=== PATIENT | male | born 1950 | race Caucasian/White ===

== ENCOUNTER → 2018-03-25 | Outpatient (CLI) | payer MEDICARE ==
[~2018-03-25] MED LIST: ALDACTONE25 MG PO; BISOPROLOL FUMA10 MG PO; D3-5050000 UNIT PO; DIOVAN160 MG PO; LEVOTHYROXINE0.2 M1 PO; TRICOR145 MG PO
== END ==
LOC: M.MRI 06:50
DX: M17.11 Unilateral primary osteoarthritis, right knee (principal); M25.461 Effusion, right knee; M71.21 Synovial cyst of popliteal space [Baker], right knee; G89.29 Other chronic pain

== ENCOUNTER → 2018-05-30 | Outpatient (CLI) | payer MEDICARE | LOC: M.RAD 12:20 | DX: M47.816 Spondylosis without myelopathy or radiculopathy, lumbar region (principal); M25.78 Osteophyte, vertebrae; I70.0 Atherosclerosis of aorta; I10 Essential (primary) hypertension; E03.9 Hypothyroidism, unspecified ==

== ENCOUNTER → 2018-08-27 | Outpatient (CLI) | payer MEDICARE | LOC: M.ULTRA 07:44 | DX: I10 Essential (primary) hypertension (principal); E03.9 Hypothyroidism, unspecified ==

== ENCOUNTER → 2018-11-08 | Outpatient (CLI) | payer MEDICARE ==
[2018-11-08 11:57] LABS: CREATININE 1.3 mg/dL (0.6-1.3)
== END ==
LOC: M.LAB 11:23 → M.CT 13:00
PROVIDERS: Internal Medicine
DX: K76.89 Other specified diseases of liver (principal); N28.9 Disorder of kidney and ureter, unspecified; R59.1 Generalized enlarged lymph nodes

== ENCOUNTER → 2019-01-02 | Day surgery (SDC) | payer MEDICARE ==
[~2019-01-02] MED LIST changes: +CATAPRES-TTS 20.2 MG TRANSDERM; +COZAAR100 MG PO; +NORVASC10 MG PO
--- NOTE | ~2019-01-02 | OP ---
[facility] [address] [place] [address] OPERATIVE REPORT Name: CORAZONANTOINETTE Karol Room: [facility]#: [id number] Admission: 01/02/19 Attend Phys: Gonsalo Owen Discharge: Date of : 48 Report #: [id number] THIS REPORT FOR: //name// CC: Noe Owen DATE OF SERVICE: 01/02/2019 PREOPERATIVE DIAGNOSIS: Right inguinal lymphadenopathy. POSTOPERATIVE DIAGNOSIS: Right inguinal lymphadenopathy. OPERATION: Excisional biopsy of right inguinal lymph node, deep. SURGEON: Gonsalo Owen MD ANESTHESIA: General. ESTIMATED BLOOD LOSS: Minimal. SPECIMEN: Right inguinal lymph node. DESCRIPTION OF PROCEDURE: After informed consent was obtained, the patient was brought to the operating room and placed supine. SCDs were placed and working. Preoperative antibiotics were administered. General anesthesia was induced. The right groin was prepped and draped in the usual sterile fashion. A 3 cm incision was made over the right groin. Cautery dissection was made down through the subcutaneous tissue into the deep tissue. Roni fascia was incised. Cautery dissection was made down to a palpable lymph node. This measured approximately 2 x 1 x 1 cm. This was dissected down with cautery. The pedicle was ligated with a 3-0 Vicryl suture. The specimen was removed. The skin was closed with a 3-0 Vicryl for the deep layer and 4-0 Monocryl in running subcuticular fashion for the skin. Incision was dressed with Steri-Strips and gauze. COMPLICATIONS: None. DISPOSITION: The patient was taken to recovery in satisfactory condition. By: 1646 1707Gonsalo Owen MD /nt
[2019-01-02 14:13] LABS: HEMATOCRIT 38.6 % (42.0-52.0); HEMOGLOBIN 13.2 gm/dL (14.0-18.0); MCH 31.1 pg (26.0-34.0); MCHC 34.1 g/dL (28.0-37.0); MCV 91.3 fL (80.0-100.0); RBC 4.23 mil/uL (4.50-6.00); RDW-CV 12.4 % (10.5-14.5)
[2019-01-02 14:23] LABS: CALCIUM 9.1 mg/dL (8.5-10.1); CREATININE 1.4 mg/dL (0.6-1.3)
--- NOTE | 2019-01-02 15:39 | EKG ---
[place] [address] ELECTROCARDIOGRAM REPORT Name: ANTOINETTE CHANDRA Room: [facility]#: [id number] Admission: 01/02/19 Attend Phys: Gonsalo Owen Discharge: Date of : 48 Report #: [id number] THIS REPORT FOR: //name// [facility] Test Date: 2019-01-02 Test Time: 13:57:11 Pat Name: ANTOINETTE CHANDRA Department: Room: Gender: M Quality Process Lead: : 1950 Requested By: Gonsalo Owen Order Number: [id number] Mercedes MD: Noe Schwab Measurements Intervals [place] Rate: 50 P: 22 NC: 156 QRS: -2 QRSD: 96 T: 24 QT: 452 QTc: 413 Interpretive Statements Sinus bradycardia No previous ECG available for comparison Electronically Signed On 01-02-2019 15:39:14 DRIER OPERATOR HELPER by Noe Schwab [email or web address] <ELECTRONICALLY SIGNED> By: Noe Schwab MD, [facility] 01/02/19 1539 1357 1357 Noe Schwab MD, FACC /EPI
--- NOTE | 2019-01-07 09:11 | PATH ---
[address] [address] PATHOLOGY RPT PROCEDURE Name: SHREYAS CHANDRA Room: [facility]#: [id number] Admission: 01/02/19 Date of : 48 Discharge: Report #: [id number] Path Case #: [id number] [facility] Accession Number: [id number] . 01 Material submitted: . RIGHT INGUINAL LYMPH NODE . 01 Clinical history: . Enlarged lymph node . 02 Diagnosis: Lymph node, right inguinal, excision: - Lymph node with focal fibrosis and extensive fatty replacement. (SKM:[facility] 01/06/2019) QTP/01/06/2019 . 02 Electronically signed: . Adriano Mixon MD, Pathologist NPI- [id number] . 01 Gross description: . The specimen is received in formalin, labeled "Shreyas Palomaresbhavin, right inguinal lymph node". Received is a segment of pale michelle to yellow-michelle lobulated tissue measuring 4.2 x 2.7 x 1.5 cm in greatest dimensions. Sectioning reveals a single lymph node measuring 3.7 cm in maximum dimensions. The specimen is submitted representatively in cassettes A1 through A3. (CAA; 01/03/2019) QAC/QAC . 02 Pathologist provided ICD-10: R59.9 . 02 CPT . 286029 Specimen Comment: A courtesy copy of this report has been sent to Specimen Comment: [phone], . Specimen Comment: Report sent to / DR LOPEZ Specimen Comment: A duplicate report has been generated due to demographic updates. Performed at: [address], [place] [id number] MD Stefano Morrow MD Phone: [phone] Performed at: 02 [facility] [address], [place], [place] [id number] MD Armani Osorio MD Phone: [phone]
== END | disposition home or self-care (01) ==
LOC: M.SUR 11:28
PROVIDERS: Surgery
DX: I89.8 Other specified noninfective disorders of lymphatic vessels and lymph nodes (principal); I10 Essential (primary) hypertension; E78.5 Hyperlipidemia, unspecified; G47.30 Sleep apnea, unspecified; E03.9 Hypothyroidism, unspecified; Z88.0 Allergy status to penicillin; Z88.8 Allergy status to other drugs, medicaments and biological substances; Z79.899 Other long term (current) drug therapy

== ENCOUNTER → 2019-07-07 | Outpatient (CLI) | payer MEDICARE ==
--- NOTE | 2019-07-07 13:34 | 2DMMODE ---
[place] [address] 2 D/M-MODE ECHOCARDIOGRAM Name: CORAZONANTOINETTE L Room: [facility]#: [id number] Admission: 07/07/19 Attend Phys: Noe Chatman, Discharge: Date of : 48 Date of Service: 07/07/19 1334 Report #: [id number] THIS REPORT FOR: //name// APPROVED REPORT Study performed: 07/07/2019 11:00:22 EXAM: Comprehensive 2D, Doppler, and color-flow Echocardiogram Patient Location: Out-Patient BSA: 2.20 HR: 62 bpm BP: 145/81 mmHg Other Information Study Quality: Fair Indications Decreased exercise tolerance 2D Dimensions IVSd: 13.17 (7-11mm) LVOT Diam: 20.74 (18-24mm) LVDd: 48.03 mm PWd: 11.47 (7-11mm) Ascending Ao: 27.90 (22-36mm) LVDs: 28.15 (25-40mm) Aortic Root: 28.64 mm Volumes Left Atrial Volume (Systole) LA ESV Index: 18.50 mL/m2 Aortic Valve AoV Peak Juaquin.: 1.31 m/s AO Peak Gr.: 6.84 mmHg LVOT Max P.50 mmHg AO Mean Gr.: 3.77 mmHg LVOT Mean P.44 mmHg LVOT Max V: 1.37 m/s AO V2 VTI: 26.34 cm LVOT Mean V: 0.85 m/s FLOYD (VTI): 3.60 cm2 LVOT V1 VTI: 28.03 cm Mitral Valve E/A Ratio: 0.83 MV Decel. Time: 292.14 ms MV E Max Juaquin.: 0.55 m/s MV PHT: 84.72 ms MVA (PHT): 2.60 [place]2 [place] [address] 2 D/M-MODE ECHOCARDIOGRAM Name: ANTOINETTE CHANDRA Room: [facility]#: [id number] Admission: 07/07/19 Attend Phys: Noe Chatman, Discharge: Date of : 48 Date of Service: 07/07/19 1334 Report #: [id number] TDI E/Lateral E': 6.88 E/Medial E': 7.86 Medial E' Juaquin.: 0.07 m/s Lateral E' Juaquin.: 0.08 m/s Pulmonary Valve PV Peak Juaquin.: 1.20 m/s PV Peak Gr.: 5.77 mmHg Left Ventricle The left ventricle is normal size. There is normal LV segmental wall motion. Mild concentric left ventricular hypertrophy. Left ventricular systolic function is normal. The left ventricular ejection fraction is within the normal range. LVEF is 55-60%. Grade I - abnormal relaxation pattern. Right Ventricle The right ventricle is normal size. The right ventricular systolic function is normal. Atria The left atrium size is normal. The right atrium size is normal. Aortic Valve The aortic valve is normal in structure. No aortic regurgitation is present. There is no aortic valvular stenosis. Mitral Valve The mitral valve is normal in structure. There is no mitral valve regurgitation noted. No evidence of mitral valve stenosis. Tricuspid Valve The tricuspid valve is normal in structure. There is no tricuspid valve regurgitation noted. Pulmonic Valve Pulmonic valve is not well visualized. There is no pulmonic valvular regurgitation. Great Vessels The aortic root is normal in size. IVC is not well visualized. Pericardium There is [place] [address] 2 D/M-MODE ECHOCARDIOGRAM Name: ANTOINETTE CHANDRA Room: [facility]#: [id number] Admission: 07/07/19 Attend Phys: Noe Chatman, Discharge: Date of : 48 Date of Service: 07/07/19 1334 Report #: [id number] <Conclusion> Mild concentric left ventricular hypertrophy. LVEF is 55-60%. <ELECTRONICALLY SIGNED> By: Noe Schwab MD, [facility] 07/07/19 1334 1334 33 Noe Schwab MD, FACC /INF
--- NOTE | 2019-07-07 17:00 | CARDNUC ---
[place] [address] CARDIAC NUCLEAR IMAGING REPORT Name: HUGOVIKANTOINETTE Room: [facility]#: [id number] Admission: 07/07/19 Attend Phys: Noe Chatman, Discharge: Date of : 48 Date of Service: 07/07/19 1700 Report #: [id number] THIS REPORT FOR: //name// APPROVED REPORT Study performed: 07/07/2019 09:21:26 Exam: Nuclear Stress Test Indication: Fatigue Patient Location: Out-Patient Stress Tech: Rosenda Antonio Stress Nurse: Concepcion Loera R.N. Ht: 5 ft 11 in Wt: 223 lbs BSA: 2.21 m2 BMI: 31.09 Medical History Medical History: Fatigue, HTN, Hyperlipidemia, Weakness, Past Tobacco chewer. Medications: Sprionolactone, Losartan, Amlodipine-Chlorthalidone, Fenofibrate, Bisoprolol, Clonidine, Cartia XT. Allergies: Meloxicam, Penicillins, Sulfa ABT. Cardiac Risk Factors: Age, FHX of CAD, HTN, Hyperlipidemia, Past Tobacco chewer. Previous Cardiac Procedures: None Pretest Chest Pain Characteristics: No chest pain Exercise History: Indeterminate Physical Disabilities: Generalized fatigue. Meds Held (24 hrs): Bisoprolol. Stress Test Details Stress Test: Pharmacologic stress was paired with low level exercise. Reason for pharmacologic stress test: Unable to achieve target HR, Fatigue, Difficulty breathing.. HR Resting HR: 61 bpm Max Heart Rate (APMHR): 150 bpm Max HR Achieved: 107 bpm Target HR (85% APMHR): 127 bpm % of APMHR: 71 Recovery HR: 82 bpm HR response to stress: Normal HR response to stress BP Resting BP: 145/81 mmHg Max BP: 203/64 [place] [address] CARDIAC NUCLEAR IMAGING REPORT Name: ANTOINETTE CHANDRA Room: [facility]#: [id number] Admission: 07/07/19 Attend Phys: Noe Chatman, Discharge: Date of : 48 Date of Service: 07/07/19 1700 Report #: [id number] BP response to stress: Abnormal hypertensive response to stress. ECG Resting ECG: Sinus Rhythm, normal EKG Stress ECG: Sinus Rhythm, normal EKG ST Change: None Maximum ST Deviation: 0 mm Arrhythmia: VPC's Recovery ECG: Sinus Rhythm, normal EKG Recovery ST Change: None Recovery ST Deviation: 0 mm Recovery Arrhythmia: None Clinical Reason for Termination: Maximal effort, Completed protocol Stress Symptoms: Dyspnea, Fatigue, Weakness, Lightheaded, Mild chest pressure. Exercise duration: 10. min 01 sec Exercise capacity: 9.11 METs Overall Exercise Capacity for Age: Reduced Nurse Comments 69 year old male patient presented with c/o increased fatigue. Patient attempted Agusto Protocol Nuclear Stress but was unable to achieve age related target HR. Lexiscan was injected when patient stated he could no longer keep up on treadmill. Treadmill speed and incline was reduced, Lexiscan and Isotope injected and patient continued to walk slowly for approx. one and a half minutes. Recovery was unremarkable with PO caffeine, effective. Patient was escorted by staff to Nuclear Medicine for images. Patient stated he felt good at that time. Stress ECG Conclusion Non-diagnostic exercise stress due to failure to attain target HR. NM EXAM: Myocardial Perfusion REST/STRESS Resting Data Rest SPECT myocardial perfusion imaging was performed in supine position 30 minutes following the intravenous injection of 11.4 mCi of Tc-99m Sestamibi. Time of rest injection: 07:45 The images were gated to evaluate regional wall motion and calculate left [place] [address] CARDIAC NUCLEAR IMAGING REPORT Name: CORAZONANTOINETTE L Room: [facility]#: [id number] Admission: 07/07/19 Attend Phys: Noe Chatman, Discharge: Date of : 48 Date of Service: 07/07/19 1700 Report #: [id number] Administration Route: IV Administration Site: Right AC Pharmacologic Stress Pharmacologic stress test was performed by injecting Regadenoson 0.4 mg IV push followed by the intravenous injection of 35.4 mCi of Tc-99m Sestamibi. Time of stress injection: 09:35 Administration Route: IV Administration Site: Right AC Heart Rate at time of stress injection: 104 bpm. Gated Stress SPECT was performed 45 minutes after stress injection. The images were gated to evaluate regional wall motion and calculate left ventricular ejection fraction. Prone imaging was performed. Study Data At rest, the left ventricular ejection fraction was 76%.. Post stress, the left ventricular ejection was 69%.. TID = 1.03. Perfusion The resting study demonstrated a very small very mild basal lateral defect. The resting study also demonstrated a small mild distal inferior defect. Stress images demonstrate a moderate in size and moderate intensity basilar inferior defect. Prone images demonstrate a small mild defect involving the in tire in the inferior wall. These images demonstrate a small mild area of inferior ischemia near the apex. Images were reviewed using MyMosa. Wall Motion Normal left ventricular wall motion. Nuclear Conclusion ECG Findings: non-diagnostic Clinical Findings: non-diagnostic Nuclear Findings: positive for ischemia Exercise Capacity: abnormal Left Ventricular Function: normal Risk Study: moderate There is a small area of mild ischemia in the inferior wall near the apex. Overall this is [place] [address] CARDIAC NUCLEAR IMAGING REPORT Name: CORAZONANTOINETTE L [facility] [id number] Admission: 07/07/19 Attend Phys: Noe Chatman, Discharge: Date of : 48 Date of Service: 07/07/19 1700 Report #: [id number] <Conclusion> Non-diagnostic exercise stress due to failure to attain target HR. <ELECTRONICALLY SIGNED> By: Kyle Kwong MD, FACC 07/07/191699 99 99 Kyle Kwong MD, FACC /INF
== END ==
LOC: M.NUC 06-12 08:33
DX: I25.9 Chronic ischemic heart disease, unspecified (principal); I11.9 Hypertensive heart disease without heart failure; E78.5 Hyperlipidemia, unspecified; I25.10 Atherosclerotic heart disease of native coronary artery without angina pectoris; Z72.0 Tobacco use

== ENCOUNTER 2019-07-30 07:44 | Observation (INO) | payer MEDICARE ==
[2019-07-30] VITALS (16 sets, daily range): BP systolic 96–176; BP diastolic 53–96
[~2019-07-30] VITALS: Ht 180.3 cm; Wt 98.4 kg
[~2019-07-30 07:44] MED LIST changes: -ALDACTONE25 MG PO; +CARDIZEM CD240 MG PO; +CHLORTHALIDONE25 MG PO; +COREG25 M1 PO; +SPIRONOLACTONE25 M1 PO; +SYNTHROID200 MCG PO
[2019-07-30] MEDS ORDERED: CLONIDINE0.1 PO (08:20)
[2019-07-30] MEDS ORDERED: ASPIR 8181 MG PO (08:22)
[2019-07-30 08:36] LABS: HEMATOCRIT 36.6 % (42.0-52.0); HEMOGLOBIN 12.6 gm/dL (14.0-18.0); MCH 31.9 pg (26.0-34.0); MCHC 34.4 g/dL (28.0-37.0); MCV 92.9 fL (80.0-100.0); MPV 8.2 fl. (7.2-11.1); RBC 3.94 mil/uL (4.50-6.00); RDW-CV 12.3 % (10.5-14.5); WBC 5.1 thou/uL (4.0-11.0)
[2019-07-30 08:48] LABS: APTT 23.5 Seconds (25.0-31.3); PROTIME 10.4 Seconds (9.20-11.50)
[2019-07-30 08:49] LABS: ANION GAP 8 mmol/L (7-16); BUN 36 mg/dL (7-18); CALCIUM 9.5 mg/dL (8.5-10.1); CHLORIDE 101 mmol/L (98-107); CO2 26 mmol/L (21-32); CREATININE 1.4 mg/dL (0.6-1.3); GLUCOSE 191 mg/dL (70-99); POTASSIUM 4.4 mmol/L (3.5-5.1); SODIUM 135 mmol/L (136-145)
[2019-07-30 08:54] LABS: ALBUMIN 3.7 g/dL (3.4-5.0); ALKALINE PHOSPHATASE 34 U/L (46-116); CHOLESTEROL 254 mg/dL (<200); HDL CHOLESTEROL 35 mg/dL (>40); SERUM ASSESSMENT Clear; SGOT 9 U/L (15-37); SGPT 24 U/L (30-65); TC:HDL 7.3 Ratio (Not establshd); TOTAL BILIRUBIN 0.4 mg/dL (<0.1-1.0); TOTAL PROTEIN 7.2 g/dL (6.4-8.2); TRIGLYCERIDE 458 mg/dL (<150); VLDL 92 mg/dL (<40)
--- NOTE | 2019-07-30 18:14 | NUR ---
PT ARRIVED TO ROOM 208 AT APPROX 1310 FROM PLACEMENT ASSISTANT. RIGHT WRIST WITH RADIAL PRESSURE DEVICE, C/D/I, PT C/O A LITTLE PRESSURE TO THE SITE. ARM ELEVATED ON PILLOWS. PRESSURE DECREASED CHARTED. PTS BP ELEVATED, RECEIVED ORDER FOR BP MEDS. PT RESPONDED WELL. ALL OTHER VSS, NS INFUSING PER ORDER TO LEFT AC. UP AD MARELY, INSTRUCTED LIMITED USE OF LEFT WRIST. PT VERBALIZED UNDERSTANDING. ADMISSION HX AND ASSESMENT DONE CHARTED. PTS BROUGHT IN HOME CPAP FOR HS. WILL CONTINUE WITH PLAN OF CARE.
[2019-07-31] VITALS (7 sets, daily range): BP systolic 125–166; BP diastolic 62–82
[2019-07-31 05:15] LABS: HEMATOCRIT 34.2 % (42.0-52.0); HEMOGLOBIN 11.7 gm/dL (14.0-18.0); MCH 31.9 pg (26.0-34.0); MCHC 34.2 g/dL (28.0-37.0); MCV 93.3 fL (80.0-100.0); MPV 8.5 fl. (7.2-11.1); RBC 3.67 mil/uL (4.50-6.00); RDW-CV 12.5 % (10.5-14.5); WBC 6.9 thou/uL (4.0-11.0)
[2019-07-31 05:20] LABS: ALBUMIN 3.1 g/dL (3.4-5.0); CALCIUM 8.6 mg/dL (8.5-10.1); CREATININE 1.3 mg/dL (0.6-1.3); POTASSIUM 4.3 mmol/L (3.5-5.1); TOTAL BILIRUBIN 0.3 mg/dL (<0.1-1.0); TOTAL PROTEIN 6.2 g/dL (6.4-8.2); TROPONIN-I LEVEL 0.12 ng/mL (<0.06)
--- NOTE | 2019-07-31 05:51 | NUR ---
PT SLEPT MOST OF SHIFT. ASSESSMENT DOCUMENTED. MEDS GIVEN PER E-JAN. IV PATENT, FLUIDS INFUSING. NO REPORTS OF PAIN. CATH SITE REMAINED C/D/I. WILL CONTINUE WITH PLAN OF CARE.
[2019-07-31] MEDS ORDERED: EFFIENT10 MG PO (09:49)
--- NOTE | 2019-07-31 14:06 | NUR ---
ASSUMED PT CARE AT 0730, FULL ASSESMENT DONE CHARTED. PT A/O X4, UP AD MARELY, RA, VSS, SR ON THE MONITOR. PTS RIGHT WRIST WITH DRESSING C/D/I THIS AM, REMOVED DRESSING, NO S/S HEMATOMA OR BLEEDING. DISCHARGE ORDERS RECEIVED, PT EDUCATED ON DISCHARGE PLAN. SCRIPT GIVEN, PTS IV REMOVED. PT DISCHARGED AT APPROX 1130 WITH AND ALL BELONGINGS.
--- NOTE | 2019-07-31 16:14 | CARD ---
[address] [address] CARDIAC CATH REPORT Name: ANTOINETTE CHANDRA Room: [address] Flori Yanes#: [id number] Admission: 07/30/19 Attend Phys: Refugio Mejia MD, Discharge: 07/31/19 Date of : 48 Report #: [id number] THIS REPORT FOR: //name// APPROVED REPORT Study performed: 07/30/2019 08:31:08 Patient Details The patient is a 69 year-old male Event Personnel Refugio Mejia Safety Associate, Kay Gonsales RN Mission Analyst, Steffanie Anton RN Mission Analyst, Dereck Pacheco OPTICAL LATHE OPERATOR Monitor, Lady Mclean RTR Scrub, More Sheridan RTR Monitor Procedures Performed Left Heart Cath w/or w/o Coronaries PAMELA Place w/wo Plasty Single RCA PAMELA Place w/wo Plasty Add'l Branch PDA Indication Positive stress test Risk Factors Hypercholesterolemia, Hypertension Admission/Lab Medications/Medications given during procedure Angiomax bolus and infusion Procedure Narrative The patient was brought electively to the Cardiac Catheterization Laboratory and was prepped and draped in a sterile manner. The right wrist was infiltrated with 2% Lidocaine subcutaneous anesthesia. A Slender Glidesheath sheath was inserted into the RRA. Coronary angiography was performed using coronary diagnostic catheters. The right coronary system was accessed and visualized with a 3 DRC 5F catheter. The left coronary system was accessed and visualized with a JL 3.5 5F catheter. The left ventricle was accessed and visualized with a Angled Pig 5F catheter. Left ventricular/Aortic Valve gradient assessed via catheter pullback. Closure device was deployed with a Fr Vasc-Band Lng 27cm. The patient tolerated the procedure well and there were no complications associated with the procedure. There was no hematoma. Intraoperative Conscious Sedation Sedation start time: 934 Case end Time: [place] [address] CARDIAC CATH REPORT Name: ANTOINETTE CHANDRA Room: [address] Flori MShelbi#: [id number] Admission: 07/30/19 Attend Phys: Refugio Mejia MD, Discharge: 07/31/19 Date of : 48 Report #: [id number] Fentanyl 75 mcg Versed 3 mg Fluoro Time: 32.2 minutes Dose: DAP 627325 cGycm2 5699 mGy Contrast Type and Amount: Visipaque 650 ml Coronary Angiography The patient's coronary anatomy is right dominant. Diagnostic Cath Left Main 0% narrowing LAD 50% proximal and mid LAD narrowing Circumflex 80-90% stenosis of the midportion of the second marginal branch of the circumflex Right Coronary Large dominant vessel with 75% proximal narrowing 80% narrowing distal to the acute margin and 90% stenosis of the posterior descending branch Left Ventriculography Left Ventriculography was not performed. Hemodynamics The aortic pressure is 152/58 mmHg with a mean of 97 mmHg. The left ventricular pressure is 146/7 mmHg with a mean of mmHg. The left ventricular end diastolic pressure is 16 mmHg. There was no gradient across the aortic valve upon pullback. PCI Technique Lesion Anticoagulation was achieved with Angiomax. Patient was preloaded with Angiomax IV 15 ml. Percutaneous coronary intervention was performed on the proximal right coronary artery. The lesion stenosis prior to intervention was 75% with ANDRA 3 flow. A 6F 3DRC Guide Catheter was used to engage the ostium. A IG: ProwaterFlex 180CM Interventional Guidewire was used to cross the lesion. STENT DEPLOYMENT A drug-eluting stent Pa RX Stent 3.5X15mm was inserted and inflated up to 12.00atm for 7seconds. Additional Inflation: 15.00atm for 7seconds. Additional Inflation: 16.00atm for 9seconds. Final angiography reveals 0 % stenosis with ANDRA 3 flow. PCI Technique Lesion 2 Percutaneous Coronary Intervention was performed on the Distal right coronary artery. Patient was preloaded with Angiomax IV [place] [address] CARDIAC CATH REPORT Name: ANTOINETTE CHANDRA Room: [address] Flori M.RMagalis#: [id number] Admission: 07/30/19 Attend Phys: Refugio Mejia MD, Discharge: 07/31/19 Date of : 48 Report #: [id number] lesion stenosis prior to intervention was 80% with ANDRA flow. A 6F 3DRC Guide Catheter was used to engage the ostium. A IG: ProwaterFlex 180CM Interventional Guidewire was used to cross the lesion. Balloon Dilation A Balloon catheter Mini Trek RX 2.0 X 8 was inserted and inflated up to 12.00atm for 8seconds. Additional Inflation: 12.00atm for 5seconds. Additional Inflation: 12.00atm for 8seconds. Stent Deployment A drug-eluting stent Crapo RX Stent 2.5X15mm, 2.5x22 was inserted and inflated up to 12.00atm for 8seconds. Additional Inflation: 18.00atm for 7seconds. Additional Inflation: 18.00atm for 8seconds. Post Stent Deployment Balloon Dilation A Balloon catheter NC Trek RX 2.5 X 12 was inserted and inflated up to 14.00atm for 5seconds. Additional Inflation: 16.00atm for 8seconds. Final angiography reveals 10 % stenosis with ANDRA 3 flow. PCI Technique Lesion 3 Percutaneous Coronary Intervention was performed on the right posterior descending artery. Patient was preloaded with Angiomax IV 15 ml. The lesion stenosis prior to intervention was 90% with ANDRA 3 flow. A 6F 3DRC Guide Catheter was used to engage the ostium. A IG: ProwaterFlex 180CM Interventional Guidewire was used to cross the lesion. Balloon Dilation A Balloon catheter Mini Trek RX 2.0 X 8 was inserted and inflated up to 10.00atm for 10seconds. Additional Inflation: 18.00atm for 10seconds. Additional Inflation: 12.00atm for 8seconds. Stent Deployment A drug-eluting stent Crapo RX Stent 2.0X8mm.2.0x12 was inserted and inflated up to 10.00atm for 8seconds. Additional Inflation: 0.0atm for 7seconds. Final angiography reveals 0 % stenosis with ANDRA 3 flow. PCI Technique Lesion Percutaneous coronary intervention was performed on the right posterior descending artery. A 6F 3DRC Guide Catheter was used to engage the ostium. A IG: ProwaterFlex 180CM Interventional Guidewire was used to cross the lesion. [address] [place] [address] CARDIAC CATH REPORT Name: ANTOINETTE CHANDRA [address]: [address]hel[address]#: [id number] Admission: 07/30/19 Attend Phys: Refugio Mejia MD, Discharge: 07/31/19 Date of : 48 Report #: [id number] BALLOON DILATION A Balloon catheter Mini Trek RX 1.5 X 8 was inserted and inflated up to 16.00atm for 11seconds. Additional Inflation: 18atm for 8seconds. STENT DEPLOYMENT A drug-eluting stent Crapo RX Stent 2.0X12mm was inserted and inflated up to 8.00atm for 8seconds. Additional Inflation: 10atm for 8seconds. Additional Inflation: 12atm for 8seconds. Conclusion #1 significant multivessel coronary artery disease characterized by the following: A 50% proximal and mid LAD narrowing B 80-90% stenosis of the midportion of the second marginal branch of the circumflex C dominant right coronary artery with 75% proximal 80% tubular distal and 90% posterior descending branch narrowings #2 mild elevation of left ventricular end-diastolic pressure at rest #3 successful percutaneous coronary intervention with deployment of drug-eluting stents at the sites of 75% proximal 80% distal and 90% posterior descending branch narrowings with 0% 10% and 0% residual narrowings and ANDRA-3 flow the distal circulation Recommendations Cardiac Risk Reduction Program Aggressive Medical Therapy Medications Administered Aspirin (any) Prasugrel Diagnostic Cath Approved by: Refugio Mejia MD Date/Time: 07/31/2019 16:13:05 <ELECTRONICALLY SIGNED> By: Refugio Mejia MD, [facility] 07/31/19 1614 1614 1614Refugio Mejia MD, [facility] /INF
--- NOTE | 2019-07-31 17:55 | EKG ---
[place] [address] ELECTROCARDIOGRAM REPORT Name: HUGOVIKANTOINETTE Room: [address]#: [id number] Admission: 07/30/19 Attend Phys: Refugio Mejia MD, Discharge: 07/31/19 Date of : 48 Report #: [id number] THIS REPORT FOR: //name// [facility] Test Date: 2019-07-30 Test Time: 08:34:20 Pat Name: ANTOINETTE CHANDRA Department: Room: [facility] Gender: M Graphic Design Manager: RT : 1950 Requested By: Refugio Mejia Order Number: [id number] Mercedes MD: Ric Kwong Measurements Intervals [place] Rate: 58 P: 21 OR: 150 QRS: -6 QRSD: 95 T: 24 QT: 411 QTc: 404 Interpretive Statements Sinus rhythm Baseline wander in lead(s) V3 Compared to ECG 01/02/2019 13:57:11 Sinus bradycardia no longer present Electronically Signed On 07-31-2019 17:55:13 CDT by Ric Kwong [email or web address] <ELECTRONICALLY SIGNED> By: Kyle Kwong MD, [facility] 07/31/19 1755 0834 0834 Kyle Kwong MD, [facility] /EPI
--- NOTE | 2019-07-31 17:58 | EKG ---
[place] [address] ELECTROCARDIOGRAM REPORT Name: CORAZONTONYANTOINETTE Karol Room: [address]#: [id number] Admission: 07/30/19 Attend Phys: Refugio Mejia MD, Discharge: 07/31/19 Date of : 48 Report #: [id number] THIS REPORT FOR: //name// [facility] Test Date: 2019-07-30 Test Time: 12:20:10 Pat Name: ANTOINETTE CHANDRA Department: Room: [facility] Gender: M Sales Manager: : 1950 Requested By: Refugio Mejia Order Number: [id number] Mercedes MD: Ric Kwong Measurements Intervals [place] Rate: 59 P: 28 GA: 148 QRS: -9 QRSD: 92 T: 35 QT: 414 QTc: 411 Interpretive Statements Sinus rhythm Borderline ST elevation, lateral leads Baseline wander in lead(s) V5,V6 Compared to ECG 01/02/2019 13:57:11 ST (T wave) deviation now present Sinus bradycardia no longer present Electronically Signed On 07-31-2019 17:58:25 CDT by Ric Kwong [email or web address] <ELECTRONICALLY SIGNED> By: Kyle Kwong MD, [facility] 07/31/19 1758 1220 1220 Kyle Kwong MD, [facility] /EPI
--- NOTE | 2019-07-31 18:04 | EKG ---
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 07/31/19 1804 0649 0649 Kyle Kwong MD, [facility] /EPI
--- NOTE | 2019-08-02 12:45 | D ---
[address] [address] DISCHARGE SUMMARY Name: ANTOINETTE CHANDRA Karol Room: [address] Flori Yanes#: [id number] Admission: 07/30/19 Attend Phys: Refugio Mejia MD, Discharge: 07/31/19 Date of : 48 Report #: [id number] THIS REPORT FOR: //name// CC: Noe Mejia DATE OF SERVICE: 07/31/2019 FINAL DISCHARGE DIAGNOSES: 1. Abnormal nuclear stress test. 2. Hyperlipidemia. 3. Hypertension. 4. Coronary artery disease. 5. Status post percutaneous coronary intervention to the right coronary artery. BRIEF HISTORY/HOSPITAL COURSE: The patient is a very pleasant 69-year-old male with hyperlipidemia and hypertension. Recent nuclear stress test suggested inducible inferior ischemia. In that context, cardiac catheterization was performed on 07/30/2019. That study revealed sequential 75% proximal, 80% stenosis beyond the acute margin and 90% posterior descending branch narrowing. He also had 80-90% stenosis in the second marginal branch of the circumflex. The LAD had 50% proximal and midvessel narrowings. The left ventricular function was normal. The patient underwent percutaneous coronary intervention with deployment of drug-eluting stents in the proximal, mid and distal right coronary artery with 0-10 and 0% residual narrowings and ANDRA 3 flow of the distal vessel. The patient did well postprocedurally with an inconsequential increase in troponin of 0.12. Laboratory on 07/31 revealed sodium is 137, potassium 4.3, BUN 29 down from 36 preprocedurally, creatinine 1.3. Hemoglobin 11.7, white blood cell count 6900 with 164,000 platelets. The patient ambulated in the hallways without difficulty. There was good hemostasis at the right radial site of catheterization. He was discharged to home on 07/31/2019 on aspirin 81 mg daily, carvedilol 25 mg b.i.d., chlorthalidone 25 mg daily, clonidine 0.1 mg b.i.d., fenofibrate 145 mg daily, L-thyroxine 200 mcg daily, losartan 100 mg daily, prasugrel or Effient 10 mg daily with a 60 mg yun-procedural dose and spironolactone 25 mg daily. He will have followup in our office and he will require stage intervention to the circumflex at a later date. His continuing care will be with [place] [address] DISCHARGE SUMMARY Name: ANTOINETTE CHANDRA [address] [id number] Admission: 07/30/19 Attend Phys: Refugio Mejia MD, Discharge: 07/31/19 Date of : 48 Report #: [id number] Therefore, the patient is discharged to home in stable condition on the aforementioned medications with followup as iterated above. <ELECTRONICALLY SIGNED> By: Refugio Mejia MD, [facility] 08/02/19 1245 1705 1905John Andrés Mejia MD, [facility] /nt
== END 2019-07-31 11:30 | disposition home or self-care (01) ==
LOC: M.CL 07:44 → M.TBA-CV 11:22 → M.2W 13:04
PROVIDERS: ADMIT Internal Medicine
DX: I25.10 Atherosclerotic heart disease of native coronary artery without angina pectoris (principal); I10 Essential (primary) hypertension; E78.5 Hyperlipidemia, unspecified

== ENCOUNTER 2019-09-08 09:02 | Observation (INO) | payer MEDICARE ==
[~2019-09-08] VITALS: Ht 152.4 cm; Wt 102.1 kg
[2019-09-08] VITALS (15 sets, daily range): BP systolic 123–148; BP diastolic 50–70
[~2019-09-08 09:02] MED LIST changes: +ASPIR 8181 MG PO; +CLONIDINE0.1 PO; +EFFIENT10 MG PO
[2019-09-08] MEDS ORDERED: FUROSEMIDE 40 M40 MG PO (09:57)
[2019-09-08 10:07] LABS: HEMATOCRIT 33.4 % (42.0-52.0); HEMOGLOBIN 11.8 gm/dL (14.0-18.0); MCH 32.5 pg (26.0-34.0); MCHC 35.3 g/dL (28.0-37.0); MPV 8.5 fl. (7.2-11.1); RBC 3.63 mil/uL (4.50-6.00); RDW-CV 12.4 % (10.5-14.5); WBC 5.6 thou/uL (4.0-11.0)
[2019-09-08 10:11] LABS: ANION GAP 10 mmol/L (7-16); BUN 30 mg/dL (7-18); CALCIUM 9.3 mg/dL (8.5-10.1); CHLORIDE 103 mmol/L (98-107); CO2 26 mmol/L (21-32); CREATININE 1.3 mg/dL (0.6-1.3); GLUCOSE 181 mg/dL (70-99); POTASSIUM 4.1 mmol/L (3.5-5.1); SODIUM 139 mmol/L (136-145)
[2019-09-08 10:15] LABS: ALBUMIN 3.4 g/dL (3.4-5.0); ALKALINE PHOSPHATASE 27 U/L (46-116); CHOLESTEROL 200 mg/dL (<200); HDL CHOLESTEROL 32 mg/dL (>40); LDL CHOLESTEROL 109 mg/dL (<100); SGOT 15 U/L (15-37); SGPT 31 U/L (30-65); TC:HDL 6.3 Ratio (Not establshd); TOTAL BILIRUBIN 0.3 mg/dL (<0.1-1.0); TOTAL PROTEIN 6.8 g/dL (6.4-8.2); TRIGLYCERIDE 295 mg/dL (<150); VLDL 59 mg/dL (<40)
[2019-09-08 10:17] LABS: APTT 25.2 Seconds (25.0-31.3); PROTIME 10.7 Seconds (9.20-11.50)
[2019-09-08 10:21] LABS: SERUM ASSESSMENT Clear
--- NOTE | 2019-09-08 16:27 | NUR ---
PT ADMITTED ON TELE FLOOR FROM CARDIAC DOCKMASTER. PT ARRIVED ON FLOOR AT 1400 ON BED IN SUPINE POSITION. PT VS BEING MONITORED Q 15 MIN THEN Q 30 MIN PER PROTOCOL POST CARDIAC CATH. R GROIN SITE IS INTACT, TRANSPARENT DRESSING ON. PT IS ON BEDREST UNTILL 1930 PER PROTOCOL POST CARDIAC CATH. PT DENIES PAIN. SCDS ON. IV FLUID INFUSING AT 100 MT HOUR. CPAP IN ROOM FOR USE THIS EVENING. CALL LIGHT AT REACH. ADMISSION ADMISSION AND HX DONE. WILL CONTINUE TO MONITOR PT
--- NOTE | 2019-09-08 17:22 | NUR ---
ORDER TO DC OSORIO CATHETER WHEN BEDREST IS OVER AT 1930
--- NOTE | 2019-09-08 19:32 | NUR ---
BUD OUT AT 1830 TODAY 800 CC OUTPUT
--- NOTE | 2019-09-08 19:34 | NUR ---
LIPTOR STARTED PER DR ORDER. SEE EMAR
[2019-09-09] VITALS: BP 130/56
[2019-09-09 04:00] VITALS: BP 140/56
--- NOTE | 2019-09-09 07:35 | NUR ---
PT RESTED THROUGH THE NIGHT. NO PAIN OR DISCOMFORT NOTED OR OBSERVED. R GROIN DRESSING DRY AND INTACT. CALL LIGHT IN REACH. HOURLY ROUNDING FOR SAFETY.
--- NOTE | 2019-09-09 08:43 | EKG ---
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: : 1950 Requested By: Refugio Mejia Order Number: [id number] Mercedes MD: Sukhwinder Robertson Measurements Intervals [place] Rate: 58 P: 23 NH: 160 QRS: 2 QRSD: 96 T: 12 QT: 412 QTc: 405 Interpretive Statements Sinus rhythm Baseline wander in lead(s) I,II,aVR Compared to ECG 07/31/2019 06:49:54 No significant changes Electronically Signed On 09-09-2019 8:42:50 CDT by Sukhwinder Robertson [email or web address] <ELECTRONICALLY SIGNED> By: Sukhwinder Robertson MD, [facility] 09/09/19 0842 1039 1039 Sukhwinder Robertson MD, [facility] /EPI
--- NOTE | 2019-09-09 08:47 | EKG ---
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[facility] : 1950 Requested By: Refugio Mejia Order Number: [id number] Mercedes MD: Sukhwinder Robertson Measurements Intervals [place] Rate: 66 P: 24 NH: 141 QRS: -6 QRSD: 91 T: 14 QT: 402 QTc: 422 Interpretive Statements Sinus rhythm Compared to ECG 07/31/2019 06:49:54 No significant changes Electronically Signed On 09-09-2019 8:47:26 CDT by Sukhwinder Robertson [email or web address] <ELECTRONICALLY SIGNED> By: Sukhwinder Robertson MD, [facility] 09/09/19 0847 1 1 Sukhwinder Robertson MD, [facility] /EPI
[2019-09-09 09:07] VITALS: BP 154/59
[2019-09-09 09:12] LABS: HEMATOCRIT 33.6 % (42.0-52.0); HEMOGLOBIN 11.6 gm/dL (14.0-18.0); MCH 31.8 pg (26.0-34.0); MCHC 34.6 g/dL (28.0-37.0); MCV 91.7 fL (80.0-100.0); MPV 7.7 fl. (7.2-11.1); RBC 3.67 mil/uL (4.50-6.00); RDW-CV 12.3 % (10.5-14.5); WBC 6.5 thou/uL (4.0-11.0)
[2019-09-09 09:29] LABS: CALCIUM 9.5 mg/dL (8.5-10.1); CREATININE 1.6 mg/dL (0.6-1.3); POTASSIUM 4.1 mmol/L (3.5-5.1)
[2019-09-09 09:34] LABS: ALBUMIN 3.5 g/dL (3.4-5.0); TOTAL BILIRUBIN 0.6 mg/dL (<0.1-1.0); TOTAL PROTEIN 6.6 g/dL (6.4-8.2)
[2019-09-09] MEDS ORDERED: NITROSTAT0.4 M1 SUBLING (10:47)
[2019-09-09 11:08] VITALS: BP 137/62
--- NOTE | 2019-09-09 11:49 | NUR ---
PT DISCHARGED TO HOME WITH AND NURSING STAFF AT 1143. IV OUT. PT STABLE UPON DISCHARGE. PAPER SCRIPTS AND CARE NOTES GIVEN. FU APPT SET UP WITH CARDIO. CARE INSTRUCTIONS GIVEN.
--- NOTE | 2019-09-10 16:47 | D ---
[address] [address] DISCHARGE SUMMARY Name: ANTOINETTE CHANDRA Room: [address] Flori Yanes#: [id number] Admission: 09/08/19 Attend Phys: Refugio Mejia MD, Discharge: 09/09/19 Date of : 48 Report #: [id number] THIS REPORT FOR: //name// CC: oNe Mejia DATE OF SERVICE: 09/09/2019 FINAL DISCHARGE DIAGNOSES: 1. Unstable angina. 2. Coronary artery disease. 3. Status post percutaneous coronary intervention of the LAD and circumflex on 09/08/2019. 4. Status post prior percutaneous coronary intervention to the right coronary artery. 5. Hypertension. 6. Hyperlipidemia. PROCEDURES: 09/08/2019 -- left heart catheterization, selective coronary arteriography and percutaneous coronary intervention to the LAD and circumflex. HISTORY AND HOSPITAL COURSE: The patient is a very pleasant 69-year-old male who presented with an abnormal nuclear stress test and chest pain compatible with unstable angina. He has underlying hypertension and hyperlipidemia. On 09/08/2019, he underwent cardiac catheterization, which revealed widely patent stents in the proximal, mid and posterior descending branch of the right coronary artery recently deployed with significant LAD and circumflex disease. I deployed 3 drug-eluting stents in the LAD and 2 in the circumflex with a good angiographic result and no significant residual narrowings. The patient did well post-procedurally with a minimal increase in troponin I at 0.56 with no clinical significance. Labs revealed sodium 129, potassium 4.1, BUN 27, creatinine 1.6. The patient ambulated in the hallways without difficulty and there was good hemostasis at the right femoral site of catheterization. He was discharged to home in stable condition on aspirin 81 mg daily, carvedilol 25 mg b.i.d., TriCor 145 mg daily, furosemide 40 mg daily, L-thyroxine 200 mcg daily, losartan 100 mg daily, prasugrel 10 mg daily and spironolactone 25 mg daily. The patient is scheduled for followup with our nurse practitioner, Josephine Romeo on 09/30/2019 at 1000 hours and myself on 10/23/2019 at [address] [place] [address] DISCHARGE SUMMARY Name: ANTOINETTE CHANDRA Room: [address] Farzana#: [id number] Admission: 09/08/19 Attend Phys: Refugio Mejia MD, Discharge: 09/09/19 Date of : 48 Report #: [id number] Thus, the patient is discharged to home in stable condition on the aforementioned medications with followup as iterated above. <ELECTRONICALLY SIGNED> By: Refugio Mejia MD, [facility] 09/10/19 1647 1644 0929John Andrés Mejia MD, [facility] /nt
--- NOTE | 2019-09-11 15:16 | CARD ---
[address] [address] CARDIAC CATH REPORT Name: ANTOINETTE CHANDRA Room: [address] Flori Yanes#: [id number] Admission: 09/08/19 Attend Phys: Refugio Mejia MD, Discharge: 09/09/19 Date of : [birth year] Report #: [id number] THIS REPORT FOR: //name// APPROVED REPORT Study performed: 09/08/2019 11:39:45 Patient Details The patient is a 69 year-old male Event Personnel Refugio Mejia Banana Grader, Jolene Dobson RN Registrar Museum, Wesley Haynes HARVESTER OPERATOR Scrub, More Sheridan RTR Monitor, Tara Sheridan Brad HARVESTER OPERATOR Monitor Procedures Performed Left Heart Cath w/or w/o Coronaries [id number] [facility] w/wo Plasty Addl BR OM [address] w/wo Plasty Single LAD [id number] Indication Unstable angina Risk Factors Hypercholesterolemia, Hypertension Previous Procedures/Diagnoses Previous PCI Admission/Lab Medications/Medications given during procedure Angiomax bolus and infusion Procedure Narrative The patient was brought electively to the Cardiac Catheterization Laboratory and was prepped and draped in a sterile manner. The right femoral was infiltrated with 2% Lidocaine subcutaneous anesthesia. A Mcguffey 6 FR sheath was inserted into the RFA. Coronary angiography was performed using coronary diagnostic catheters. The right coronary system was accessed and visualized with a JLF catheter. The left coronary system was accessed and visualized with a JR4 catheter. Left ventricular/Aortic Valve gradient assessed via catheter pullback. Pre-demployment femoral angiogram was performed . Closure device was deployed with a 6 Fr Angioseal. The patient tolerated the procedure well and there were no complications associated with the procedure. [place] [address] CARDIAC CATH REPORT Name: ANTOINETTE CHANDRA Room: [address] Farzana#: [id number] Admission: 09/08/19 Attend Phys: Refugio Mejia MD, Discharge: 09/09/19 Date of : 48 Report #: [id number] Intraoperative Conscious Sedation Fentanyl 75 mcg Dose: 3028 mGy Contrast Type and Amount: Visipaque 500 ml Coronary Angiography The patient's coronary anatomy is right dominant. Diagnostic Cath Left Main 0% narrowing LAD Tandem 80% mid LAD stenoses Circumflex 90% stenosis in the midportion of the second marginal branch Right Coronary Widely patent proximal and mid vessel stents with 40% distal right coronary narrowing Left Ventriculography Left Ventriculography was not performed. Hemodynamics The aortic pressure is 151/45 mmHg with a mean of 72 mmHg. The left ventricular end diastolic pressure is 15 mmHg. PCI Technique Lesion Anticoagulation was achieved with Angiomax. Patient was preloaded with Angiomax IV 15 ml. Percutaneous coronary intervention was performed on the mid left anterior descending artery segment. The lesion stenosis prior to intervention was 80% with ANDRA 3 flow. A 6F XB LAD 3.5 Guide Catheter was used to engage the ostium. A IG: BMW 190cm Interventional Guidewire was used to cross the lesion. BALLOON DILATION A Balloon catheter Trek RX 2.25 X 12 was inserted and inflated up to 10.00atm for 6seconds. Additional Inflation: 12.00atm for 6seconds. STENT DEPLOYMENT A drug-eluting stent Edgewater RX Stent 2.0X15mm was inserted and inflated up to 8.00atm for 10seconds. Additional Inflation: 14.00atm for 3seconds. STENT DEPLOYMENT A stent Edgewater RX Stent 2.0X8mm was inserted and inflated up to 10.00atm for 5seconds. Additional Inflation: 15.00[place] [address] CARDIAC CATH REPORT Name: ANTOINETTE CHANDRA Room: [address]#: [id number] Admission: 09/08/19 Attend Phys: Refugio Mejia MD, Discharge: 09/09/19 Date of : [birth year] Report #: [id number] 7seconds. Final angiography reveals 0 % stenosis with ANDRA 3 flow. PCI Technique Lesion 2 Percutaneous Coronary Intervention was performed on the second obtuse marginal branch segment. The lesion stenosis prior to intervention was 90% with ANDRA 3 flow. A 6F XB LAD 3.5 Guide Catheter was used to engage the ostium. A IG: ProwaterFlex 180CM Interventional Guidewire was used to cross the lesion. Stent Deployment A drug-eluting stent Pa RX Stent 2.0X15mm 2.0x8 was inserted and inflated up to 12.00atm for 7seconds. Final angiography reveals 10 % stenosis with ANDRA 3 flow. PCI Technique Lesion Percutaneous coronary intervention was performed on the Mid LAD. STENT DEPLOYMENT A drug-eluting stent Edgewater RX Stent 2.25X8mm was inserted and inflated up to 15.00atm for 6seconds. PCI Technique Lesion Percutaneous coronary intervention was performed on the 1St OM. STENT DEPLOYMENT A stent Pa RX Stent 2.0X8mm was inserted and inflated up to 15.00atm for 6seconds. Conclusion #1 significant multivessel coronary artery disease characterized by the following: A tandem 80% mid LAD stenoses B 90% stenosis of the midportion of the second marginal branch of the circumflex C dominant right coronary with widely patent proximal and mid vessel stents with 40% distal narrowing #2 mild elevation of left ventricular end-[place] [address] CARDIAC CATH REPORT Name: ANTOINETTE CHANDRA Room: [address] Flori MShelbi#: [id number] Admission: 09/08/19 Attend Phys: Refugio Mejia MD, Discharge: 09/09/19 Date of : 48 Report #: [id number] rest #3 successful percutaneous coronary intervention with deployment of sequential drug-eluting stents at the sites of 80% tandem mid LAD stenoses with 10 and 0% residual narrowing following stent deployment #5 successful percutaneous coronary intervention with deployment of sequential drug-eluting stents at the site of 90% second marginal narrowing with 10% residual narrowing and ANDRA-3 flow to the distal vessel Recommendations Cardiac Risk Reduction Program Aggressive Medical Therapy Medications Administered Aspirin (any) Prasugrel Diagnostic Cath Approved by: Refugio Mejia MD Date/Time: 09/11/2019 15:03:49 <ELECTRONICALLY SIGNED> By: Refugio Mejia MD, [facility]ACC 09/11/19 1516 1516 1516Refugio Mejia MD, FACC /INF
== END 2019-09-09 11:50 | disposition home or self-care (01) ==
LOC: M.CL 09:02 → M.TBA-CV 14:10 → M.2W 14:13
PROVIDERS: ADMIT Internal Medicine
DX: I25.110 Atherosclerotic heart disease of native coronary artery with unstable angina pectoris (principal); I10 Essential (primary) hypertension; E78.5 Hyperlipidemia, unspecified; R25.2 Cramp and spasm; Z79.82 Long term (current) use of aspirin; Z79.899 Other long term (current) drug therapy; Z87.891 Personal history of nicotine dependence; Z95.5 Presence of coronary angioplasty implant and graft

== ENCOUNTER → 2019-09-30 | Outpatient (CLI) | payer MEDICARE ==
[~2019-09-30] MED LIST changes: +FUROSEMIDE 40 M40 MG PO; +NITROSTAT0.4 M1 SUBLING
[2019-09-30 11:31] LABS: ALBUMIN 4.1 g/dL (3.4-5.0); CALCIUM 9.6 mg/dL (8.5-10.1); CREATININE 2.2 mg/dL (0.6-1.3); POTASSIUM 4.3 mmol/L (3.5-5.1); TOTAL BILIRUBIN 0.5 mg/dL (<0.1-1.0); TOTAL PROTEIN 7.2 g/dL (6.4-8.2)
== END ==
LOC: M.LAB 10:35
PROVIDERS: Registered Nurse
DX: E78.2 Mixed hyperlipidemia (principal); I12.9 Hypertensive chronic kidney disease with stage 1 through stage 4 chronic kidney disease, or unspecified chronic kidney disease; N18.9 Chronic kidney disease, unspecified

== ENCOUNTER → 2019-10-07 | Outpatient (CLI) | payer MEDICARE ==
[~2019-10-07] MED LIST changes: +MINOCYCLINE HC100 M2 PO; +MITIGARE0.6 MG PO; +NAPROSYN500 MG PO
[2019-10-07 15:39] LABS: ALBUMIN 3.6 g/dL (3.4-5.0); ALKALINE PHOSPHATASE 31 U/L (46-116); ANION GAP 10 mmol/L (7-16); BUN 19 mg/dL (7-18); CALCIUM 9.4 mg/dL (8.5-10.1); CHLORIDE 104 mmol/L (98-107); CHOLESTEROL 139 mg/dL (<200); CO2 27 mmol/L (21-32); CREATININE 1.5 mg/dL (0.6-1.3); DIRECT BILIRUBIN 0.1 mg/dL (<0.1-0.3); GLUCOSE 226 mg/dL (70-99); HDL CHOLESTEROL 32 mg/dL (>40); LDL CHOLESTEROL 70 mg/dL (<100); POTASSIUM 3.7 mmol/L (3.5-5.1); SGOT 19 U/L (15-37); SGPT 35 U/L (30-65); SODIUM 141 mmol/L (136-145); TC:HDL 4.3 Ratio (Not establshd); TOTAL BILIRUBIN 0.3 mg/dL (<0.1-1.0); TOTAL PROTEIN 6.6 g/dL (6.4-8.2); TRIGLYCERIDE 189 mg/dL (<150); VLDL 38 mg/dL (<40)
[2019-10-07 15:40] LABS: SERUM ASSESSMENT Clear
== END ==
LOC: M.LAB 14:46
PROVIDERS: Registered Nurse
DX: E78.2 Mixed hyperlipidemia (principal); I12.9 Hypertensive chronic kidney disease with stage 1 through stage 4 chronic kidney disease, or unspecified chronic kidney disease; N18.9 Chronic kidney disease, unspecified

== ENCOUNTER 2019-10-20 11:35 | Inpatient (IN) | payer MEDICARE ==
[~2019-10-20] VITALS: Ht 177.8 cm; Wt 90.7 kg
[~2019-10-20 11:35] MED LIST changes: -MINOCYCLINE HC100 M2 PO; -MITIGARE0.6 MG PO; -NAPROSYN500 MG PO
[2019-10-20 11:46] VITALS: BP 206/89
[2019-10-20 12:31] LABS: ABSOLUTE EOSINOPHILS 0.2 thou/uL (0.0-0.7); ABSOLUTE LYMPHOCYTES 1.6 thou/uL (0.8-5.3); ABSOLUTE MONOCYTES 0.7 thou/uL (0.0-1.2); ABSOLUTE NEUTROPHILS 6.1 thou/uL (1.6-8.1); BASOPHILS 0.6 %; EOSINOPHILS 1.9 %; HEMATOCRIT 32.9 % (42.0-52.0); HEMOGLOBIN 11.4 gm/dL (14.0-18.0); LYMPHOCYTES 18.7 %; MCH 31.2 pg (26.0-34.0); MCHC 34.7 g/dL (28.0-37.0); MCV 89.7 fL (80.0-100.0); MONOCYTES 7.8 %; MPV 8.2 fl. (7.2-11.1); NUCLEATED RBCS 0 /100WBC; PLATELET COUNT* 260 thou/uL (150-400); RBC 3.67 mil/uL (4.50-6.00); RDW-CV 12.1 % (10.5-14.5); WBC 8.5 thou/uL (4.0-11.0)
[2019-10-20 12:43] LABS: CALCIUM 9.3 mg/dL (8.5-10.1); CREATININE 1.5 mg/dL (0.6-1.3); POTASSIUM 3.7 mmol/L (3.5-5.1)
[2019-10-20 12:48] LABS: ALBUMIN 3.6 g/dL (3.4-5.0); TOTAL BILIRUBIN 0.7 mg/dL (<0.1-1.0); TOTAL PROTEIN 7.9 g/dL (6.4-8.2)
[2019-10-20 13:35] VITALS: BP 175/68
[2019-10-20 16:54] VITALS: BP 161/64
[2019-10-20 18:52] VITALS: BP 158/66
--- NOTE | 2019-10-20 19:08 | NUR ---
PATIENT ARRIVED TO UNIT AT APPROX 1340. ALERT AND ORIENTED X4. ADMISSION HISTORY AND ASSESSMENT COMPLETED AND CHARTED. VSS ON ROOM AIR. NO COMPLAINTS OF PAIN. PATIENT HAS SOME DRY SKIN OVER HIS LEFT GREAT TOE, SWELLING NOTED OVERALL ON LEFT FOOT. NO REDNESS OR OPEN WOUNDS OBSERVED ON LEFT LOWER EXTREMITY. ANTIBIOTICS INFUSED ORDERED. PATIENT UP AD MARELY. CALL LIGHT IN REACH. HOURLY ROUNDS COMPLETED. WILL CONTINUE WITH PLAN OF CARE.
[2019-10-20 20:20] VITALS: BP 154/59
[2019-10-21 04:35] LABS: ABSOLUTE BASOPHILS 0.1 thou/uL (0.0-0.2); ABSOLUTE EOSINOPHILS 0.2 thou/uL (0.0-0.7); ABSOLUTE LYMPHOCYTES 1.6 thou/uL (0.8-5.3); ABSOLUTE MONOCYTES 0.6 thou/uL (0.0-1.2); ABSOLUTE NEUTROPHILS 5.2 thou/uL (1.6-8.1); BASOPHILS 0.7 %; EOSINOPHILS 3.2 %; HEMATOCRIT 28.1 % (42.0-52.0); LYMPHOCYTES 20.6 %; MCH 31.7 pg (26.0-34.0); MCHC 35.5 g/dL (28.0-37.0); MCV 89.3 fL (80.0-100.0); MONOCYTES 7.9 %; MPV 8.1 fl. (7.2-11.1); NUCLEATED RBCS 0 /100WBC; PLATELET COUNT* 215 thou/uL (150-400); POLYS 67.6 %; RBC 3.14 mil/uL (4.50-6.00); RDW-CV 12.4 % (10.5-14.5); WBC 7.6 thou/uL (4.0-11.0)
[2019-10-21 04:41] LABS: CALCIUM 8.9 mg/dL (8.5-10.1); CREATININE 1.3 mg/dL (0.6-1.3); POTASSIUM 3.7 mmol/L (3.5-5.1)
--- NOTE | 2019-10-21 04:49 | NUR ---
PT A&O X 4, VSS RA. MEDS GIVEN ORDERED. NO C/O PAIN. PT SLEEPING THROUGH THE NIGHT. UP AD MARELY. WILL CONTINUE TO MONITOR.
[2019-10-21 07:29] LABS: URINE BILIRUBIN NEGATIVE (Negative); URINE BLOOD NEGATIVE (Negative); URINE CLARITY CLEAR; URINE COLOR YELLOW; URINE GLUCOSE-RANDOM 2+ (Negative); URINE KETONES NEGATIVE (Negative); URINE LEUKOCYTES-REFLEX NEGATIVE (Negative); URINE NITRITE-REFLEX NEGATIVE (Negative); URINE PROTEIN NEGATIVE (Negative); URINE UROBILINOGEN 0.2 E.U./dl (0.2-1.0)
[2019-10-21 08:15] VITALS: BP 169/81
--- NOTE | 2019-10-21 15:32 | 2DMMODE ---
[place] [address] 2 D/M-MODE ECHOCARDIOGRAM Name: ANTOINETTE CHANDRA Room: [address] IN [facility]#: [id number] Admission: 10/20/19 Attend Phys: Manas Baxter, Discharge: Date of : 48 Date of Service: 10/21/19 1532 Report #: [id number] THIS REPORT FOR: //name// APPROVED REPORT Study performed: 10/21/2019 14:28:38 EXAM: Comprehensive 2D, Doppler, and color-flow Echocardiogram Patient Location: In-Patient Room #: [facility] Status: routine BSA: 2.09 HR: 74 bpm BP: 154/59 mmHg Rhythm: NSR Other Information Study Quality: Good Indications Murmur 2D Dimensions IVSd: 13.55 (7-11mm) LVOT Diam: 20.15 (18-24mm) LVDd: 49.38 mm PWd: 11.81 (7-11mm) Ascending Ao: 32.37 (22-36mm) LVDs: 25.36 (25-40mm) Aortic Root: 33.58 mm Volumes Left Atrial Volume (Systole) LA ESV Index: 20.70 mL/m2 Aortic Valve AoV Peak Juaquin.: 1.78 m/s AO Peak Gr.: 12.74 mmHg LVOT Max P.12 mmHg AO Mean Gr.: 7.00 mmHg LVOT Mean P.88 mmHg LVOT Max V: 1.67 m/s AO V2 VTI: 33.88 cm LVOT Mean V: 1.12 m/s FLOYD (VTI): 3.20 cm2 LVOT V1 VTI: 34.01 cm Mitral Valve E/A Ratio: 1.05 MV Decel. Time: 192.69 ms MV E Max Juaquin.: 0.83 m/[place] [address] 2 D/M-MODE ECHOCARDIOGRAM Name: ANTOINETTE CAHNDRA Room: [address] [place] ..#: [id number] Admission: 10/20/19 Attend Phys: Manas Baxter, Discharge: Date of : 48 Date of Service: 10/21/19 1532 Report #: [id number] MV PHT: 55.88 ms MVA (PHT): 3.94 cm2 TDI E/Lateral E': 7.55 E/Medial E': 9.22 Medial E' Juaquin.: 0.09 m/s Lateral E' Juaquin.: 0.11 m/s Pulmonary Valve PV Peak Juaquin.: 1.30 m/s PV Peak Gr.: 6.75 mmHg Left Ventricle The left ventricle is normal size. There is normal LV segmental wall motion. There is normal left ventricular wall thickness. Left ventricular systolic function is normal. The left ventricular ejection fraction is within the normal range. LVEF is 60-65%. The left ventricular diastolic function is normal. Right Ventricle The right ventricle is normal size. The right ventricular systolic function is normal. Atria The left atrium size is normal. The right atrium size is normal. Aortic Valve Mild aortic valve sclerosis. No aortic regurgitation is present. There is no aortic valvular stenosis. Mitral Valve The mitral valve is normal in structure. There is no mitral valve regurgitation noted. No evidence of mitral valve stenosis. Tricuspid Valve The tricuspid valve is normal in structure. Trace tricuspid regurgitation. Unable to assess PA pressure. Pulmonic Valve The pulmonary valve is normal in structure. There is no pulmonic valvular regurgitation. Great Vessels The aortic root is normal in size. IV[place] [address] 2 D/M-MODE ECHOCARDIOGRAM Name: ANTOINETTE CHANDRA Room: [address] [place] [facility]#: [id number] Admission: 10/20/19 Attend Phys: Manas Baxter, Discharge: Date of : 48 Date of Service: 10/21/19 1532 Report #: [id number] Pericardium There is no pericardial effusion. <Conclusion> The left ventricle is normal size. There is normal left ventricular wall thickness. Left ventricular systolic function is normal. The left ventricular ejection fraction is within the normal range. LVEF is 60-65%. The left ventricular diastolic function is normal. The right ventricle is normal size. The left atrium size is normal. Mild aortic valve sclerosis. No aortic regurgitation is present. There is no aortic valvular stenosis. The mitral valve is normal in structure. The tricuspid valve is normal in structure. There is no pericardial effusion. There is normal LV segmental wall motion. <ELECTRONICALLY SIGNED> By: Refugio Mejia MD, [facility] 10/21/19 [phone] Refugio Mejia MD, FACC /INF
[2019-10-21 15:52] VITALS: BP 135/56
--- NOTE | 2019-10-21 19:44 | NUR ---
I ASSUMED CARE OF THE PATIENT AT 0700. HE IS ALERT AND ORIENTED X4 AND IS UP AD MARELY. HOURLY ROUNDING IS COMPLETED AND PATIENT NEEDS ARE MET. PAIN IS MANAGED WITH PRN MEDS. BED IS IN THE LOW LOCKED POSITION AND CALL LIGHT IS IN REACH. ECHO WAS COMPLETED TODAY. WILL CONTINUE TO MONITOR.
[2019-10-21 20:30] VITALS: BP 142/54
--- NOTE | 2019-10-22 03:39 | NUR ---
ASSUMED CARE FROM DAY SHIFT PT RESTING IN BED WITH LEFT FOOT ELEVATED ON PILLOW , TYLENOL GIVEN FOR PAIN , IV ABX GIVEN PRESCRIBED TOLERATED WELL. NO CONCERNS VOICED. PT RESTED WELL THROUGHOUT HOURLY ROUNDS WILL CONITUE WITH CURRENT PLAN OF CARE, AND WILL REPORT CHANGES.
[2019-10-22 08:00] VITALS: BP 135/54
--- NOTE | 2019-10-22 11:48 | CON ---
[address] [address] CONSULTATION Name: ANTOINETTE CHANDRA Room: [address] IN .R.#: [id number] Admission: 10/20/19 Attend Phys: Manas Baxter MD Discharge: Date of : 48 Report #: [id number] THIS REPORT FOR: //name// CC: Manas Liu [facility] DATE OF SERVICE: 10/21/2019 INFECTIOUS DISEASE CONSULTATION ATTENDING PHYSICIAN: Manas Baxter MD. REASON FOR EVALUATION: Left lower extremity inflammatory eruption, suspected cellulitis. HISTORY OF PRESENT ILLNESS: Chart reviewed, patient examined. This is a 69-year-old gentleman with known coronary artery disease, previous stenting, who was admitted through the Emergency Room with complaints of inability to bear weight or ambulate involving the left foot in particular approximately 10 days prior was felt to have a component of inflammation thought to be an infectious, was treated with clindamycin for presumptive diagnosis of cellulitis, really had no improvement. Again, he was unable to walk that prompted further evaluation. Interestingly, denies any systemic illness, no fevers or chills. Appetite has been generally good. No pulmonary complaints, exception of recent cold, described as a cough, somewhat productive. No dyspnea. Denies any significant abdominal-related complaints. He additionally denies any antecedent injury. He was evaluated, placed on empiric antimicrobial therapy. Initial x-ray showed no bony changes. Lactic acid 1.3. Uric acid 5.4. White count was 7.6. Blood cultures sterile thus far. Urinalysis is unremarkable. Empirically started on vancomycin. ALLERGIES: Listed to PENICILLIN, SULFA, MELOXICAM. CURRENT MEDICATIONS: Include furosemide, aspirin, losartan, spironolactone, levothyroxine, pantoprazole, vancomycin, carvedilol, enoxaparin, nitroglycerin, analgesics and antiemetics. PAST MEDICAL HISTORY: As described above, history of hypertension, has cardiomyopathy, history of hyperlipidemia. SOCIAL HISTORY: Nonsmoker, no ethanol, no illicit drug use. FAMILY HISTORY: Noncontributory. REVIEW OF SYSTEMS: Otherwise, unremarkable 10-point review of system [place] [address] CONSULTATION Name: ANTOINETTE CHANDRA Room: [address]#: [id number] Admission: 10/20/19 Attend Phys: Manas Baxter MD Discharge: Date of : 48 Report #: [id number] PHYSICAL EXAMINATION: GENERAL: He is alert, cooperative, appropriate, appears to be generally well nourished. VITAL SIGNS: Temperature 99, pulse 64, respirations 18, blood pressure 154/59, [id number]-[id number] distress. HEENT: Normocephalic. Extraocular muscles intact. NECK: Supple. SKIN: Otherwise unremarkable. LUNGS: Generally, clear to auscultation. HEART: Regular. Does have a systolic murmur, he was not aware of prior to this. ABDOMEN: Soft, nontender, nondistended. EXTREMITIES: Left lower extremity is quite tender to calf region, particularly manipulation around the ankle, also has more localized inflammation around the first metatarsophalangeal joint, there is a contused area laterally as well. GENITOURINARY AND RECTAL: Deferred. LABORATORY DATA: Blood cultures sterile thus far. Urinalysis unremarkable. CBC: White count 7.6, H and H 10.0/28.1, platelets of 215. Electrolytes: Sodium 141, potassium 3.7, chloride 104, bicarbonate is 27, anion gap of 10, BUN and creatinine 21 and 1.3. Venous Doppler of lower extremity is normal. Evaluation: Sodium 138, potassium 3.7, chloride 98, bicarbonate is 31, anion gap of 9, BUN and creatinine 23 and 1.5, glucose of 222. AST of 11, ALT of 19, albumin 3.6, total protein 7.9, estimated GFR 46. ASSESSMENT: Left lower extremity inflammatory process. It is not entirely clear if this is a cellulitic primarily, discussed with Dr. Baxter. We will have Orthopedic Surgery see him, make sure to exclude hard tissue injury may lead to contusion, can entirely exclude gout podagra. Secondly, he has murmur. I think it is reasonable to pursue an echo as well. We will await cultures. I think it is entirely appropriate to have empiric antimicrobial therapy covered with, gram positive still likely etiology. We will follow. <ELECTRONICALLY SIGNED> By: Ramez Almendarez MD 10/22/19 1148 [id number] Almendarez MD /nt
[2019-10-22 16:03] VITALS: BP 131/53
--- NOTE | 2019-10-22 16:15 | NUR ---
PT.ALERT AND ORIENTED. STATED HE LIVES WITH HIS . SHE CAN ASSIST HIM IF NEEDED WHEN HE GOES HOME. HE IS NORMALLY INDEPENDENT. 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 NO USE OF DME OR HX OF HH. HE HAS A HX OF CARDIAC STENTS AND CURRENTLY DOES CARDIAC REHAB. CM WILL FOLLOW FOR DISCHARGE PLANNING.
--- NOTE | 2019-10-22 18:38 | NUR ---
PT UP IN ROOM WITH STEADY GAIT. DENIES PAIN.TOLERATING PO WELL
[2019-10-22 20:10] VITALS: BP 168/71
--- NOTE | 2019-10-23 04:28 | NUR ---
PATIENT HAS REMAINED ALERT AND ORIENTED X 4 THROUGHOUT THE SHIFT AND RESTING QUIETLY ON HOURLY ROUNDS. UP INDEPENDENTLY IN ROOM. ORTHO SHOE TO LLE ENCOURAGED WHEN UP. LLE ELEVATED WHEN IN BED. INTERMITTANT DISCOMFORT. FOOT WARM WITH 2+ PEDAL PULSES AND BRISK CAP REFILL. MIN REDNESS AND EDEMA PRESENT. TYLENOL FOR LLE DISCOMFORT X 2 THIS SHIFT TO GOOD EFFECT. ANTIBIOTICS PER ORDER. VITAL SIGNS STABLE. CONTINUE TO MONITOR.
[2019-10-23 07:20] VITALS: BP 149/62
[2019-10-23] MEDS ORDERED: MINOCYCLINE HC100 M2 PO (14:08)
[2019-10-23] MEDS ORDERED: MITIGARE0.6 MG PO (14:12)
[2019-10-23] MEDS ORDERED: NAPROSYN500 MG PO (14:14)
[2019-10-23 14:26] VITALS: BP 149/62
--- NOTE | 2019-10-23 15:33 | NUR ---
PATIENT UP AD MARELY WITH ORTHO SHOE. TUBAGRIP PLACED THIS AFTERNOON PER DR. LEONARD FROM ID. PO ABX ORDERED AND FIRST DOSE GIVEN. IV DC'D. VERBALIZES UNDERSTANDING OF PAPEWORK AND SCRIPT. PATIENT REFUSED ANY PAIN MEDS THIS SHIFT. PATIENT TAKEN OUT VIA WHEELCHAIR WITH ALL BELONGINGS.
== END 2019-10-23 15:35 | disposition home or self-care (01) | DRG 603 ==
LOC: M.ERS 11:35 → M.TBA-ER 12:31 → M.ORTHSURG 12:31
PROVIDERS: Emergency Medicine Emergency Medical Services; ADMIT Internal Medicine
DX: L03.116 Cellulitis of left lower limb (principal); I42.9 Cardiomyopathy, unspecified; E78.5 Hyperlipidemia, unspecified; I25.10 Atherosclerotic heart disease of native coronary artery without angina pectoris; I16.0 Hypertensive urgency; M19.079 Primary osteoarthritis, unspecified ankle and foot; M10.9 Gout, unspecified; I12.9 Hypertensive chronic kidney disease with stage 1 through stage 4 chronic kidney disease, or unspecified chronic kidney disease; N18.9 Chronic kidney disease, unspecified; Z95.5 Presence of coronary angioplasty implant and graft; Z88.0 Allergy status to penicillin; Z88.8 Allergy status to other drugs, medicaments and biological substances; Z88.2 Allergy status to sulfonamides; Z79.899 Other long term (current) drug therapy; Z79.82 Long term (current) use of aspirin

== ENCOUNTER → 2019-11-14 | Outpatient (CLI) | payer MEDICARE ==
[~2019-11-14] MED LIST changes: +MINOCYCLINE HC100 M2 PO; +MITIGARE0.6 MG PO; +NAPROSYN500 MG PO
[2019-11-14 10:00] LABS: ALBUMIN 3.8 g/dL (3.4-5.0); ALKALINE PHOSPHATASE 28 U/L (46-116); ANION GAP 11 mmol/L (7-16); BUN 19 mg/dL (7-18); CALCIUM 9.5 mg/dL (8.5-10.1); CHLORIDE 103 mmol/L (98-107); CHOLESTEROL 180 mg/dL (<200); CK-MB MASS 0.7 ng/mL (<0.5-3.6); CO2 28 mmol/L (21-32); CREATININE 1.5 mg/dL (0.6-1.3); DIRECT BILIRUBIN 0.1 mg/dL (<0.1-0.3); GLUCOSE 214 mg/dL (70-99); HDL CHOLESTEROL 35 mg/dL (>40); LDL CHOLESTEROL 96 mg/dL (<100); POTASSIUM 4.1 mmol/L (3.5-5.1); SGOT 26 U/L (15-37); SGPT 56 U/L (30-65); SODIUM 142 mmol/L (136-145); TC:HDL 5.1 Ratio (Not establshd); TOTAL BILIRUBIN 0.5 mg/dL (<0.1-1.0); TOTAL PROTEIN 7.4 g/dL (6.4-8.2); TRIGLYCERIDE 248 mg/dL (<150); VLDL 50 mg/dL (<40)
[2019-11-14 10:01] LABS: SERUM ASSESSMENT Clear
== END ==
LOC: M.LAB 08:37
PROVIDERS: Registered Nurse
DX: E78.2 Mixed hyperlipidemia (principal); I12.9 Hypertensive chronic kidney disease with stage 1 through stage 4 chronic kidney disease, or unspecified chronic kidney disease; N18.9 Chronic kidney disease, unspecified

== ENCOUNTER → 2020-01-28 | Outpatient (CLI) | payer MEDICARE ==
[~2020-01-28] MED LIST changes: +LIPITOR40 MG PO; +NORVASC 2.5 MG2.5 M1 PO; +PROAIR HFA8.5 GM INH; +ZPAK PO
[2020-01-28 14:17] LABS: ABSOLUTE LYMPHOCYTES 0.8 thou/uL (0.8-5.3); ABSOLUTE MONOCYTES 0.2 thou/uL (0.0-1.2); ABSOLUTE NEUTROPHILS 2.1 thou/uL (1.6-8.1); BASOPHILS 0.5 %; EOSINOPHILS 0.3 %; HEMOGLOBIN 11.7 gm/dL (14.0-18.0); LYMPHOCYTES 25.7 %; MCHC 34.5 g/dL (28.0-37.0); MCV 86.8 fL (80.0-100.0); MONOCYTES 7.7 %; MPV 8.8 fl. (7.2-11.1); NUCLEATED RBCS 0 /100WBC; PLATELET COUNT* 100 thou/uL (150-400); POLYS 65.8 %; RBC 3.91 mil/uL (4.50-6.00); RDW-CV 13.4 % (10.5-14.5); WBC 3.2 thou/uL (4.0-11.0)
== END ==
LOC: M.RAD 13:48
PROVIDERS: Internal Medicine
DX: R91.8 Other nonspecific abnormal finding of lung field (principal); R50.9 Fever, unspecified

== ENCOUNTER 2020-01-31 13:02 | Inpatient (IN) | payer MEDICARE ==
[~2020-01-31] VITALS: Ht 180.3 cm; Wt 91.6 kg
[2020-01-31] VITALS (10 sets, daily range): BP systolic 99–131; BP diastolic 49–61
--- NOTE | ~2020-01-31 | CON ---
[address] [address] CONSULTATION Name: ANTOINETTE CHANDRA Room: [address] IN .R.#: [id number] Admission: 01/31/20 Attend Phys: Fernie Short, Discharge: Date of : 48 Report #: [id number] THIS REPORT FOR: //name// cc: Noe Chatman MD, David L. MD ~ THIS REPORT FOR: //name// CC: Noe Short SUBJECTIVE: The patient is seen through the window. He has COVID positive, on ventilator at 80% FiO2. Discussed the case with the nurse caring for him. He has had 5 mL urine output roughly over the past 24 hours. He had dialysis yesterday and tolerated it fine. OBJECTIVE: GENERAL: No apparent distress, sedated on ventilator, orally intubated. GENITOURINARY: He has a Sepulveda catheter in place. IMPRESSION AND PLAN: Acute kidney injury, hemodialysis dependent, secondary to COVID-19 infection with severe pneumonia and acute respiratory distress syndrome, respiratory failure. Plan for dialysis will be for tomorrow. His electrolytes today were reviewed. His potassium is 4.9. By: [id number] Sheth, MD /nt
[~2020-01-31 13:02] MED LIST changes: -LIPITOR40 MG PO; -NORVASC 2.5 MG2.5 M1 PO; -PROAIR HFA8.5 GM INH; -ZPAK PO
[2020-01-31 13:53] LABS: ABSOLUTE LYMPHOCYTES 0.6 thou/uL (0.8-5.3); ABSOLUTE MONOCYTES 0.2 thou/uL (0.0-1.2); ABSOLUTE NEUTROPHILS 2.6 thou/uL (1.6-8.1); BASOPHILS 0.3 %; EOSINOPHILS 0.1 %; HEMOGLOBIN 12.3 gm/dL (14.0-18.0); LYMPHOCYTES 17.9 %; MCH 29.6 pg (26.0-34.0); MCHC 34.1 g/dL (28.0-37.0); MONOCYTES 6.6 %; MPV 9.3 fl. (7.2-11.1); NUCLEATED RBCS 0 /100WBC; PLATELET COUNT* 91 thou/uL (150-400); POLYS 75.1 %; RBC 4.14 mil/uL (4.50-6.00); RDW-CV 13.6 % (10.5-14.5); WBC 3.5 thou/uL (4.0-11.0)
[2020-01-31 13:59] LABS: BE 0.7 mmol/L (-2 to +3); PCO2 32.1 mmHg (35.0-45.0); pH 7.483 (7.340-7.450)
--- NOTE | 2020-01-31 14:02 | NUR ---
RT PRESENT, PT PLACED ON BIPAP AT THIS TIME
[2020-01-31 14:03] LABS: PO2 48.7 mmHg (75.0-100.0)
[2020-01-31 14:07] LABS: ANION GAP 10 mmol/L (7-16); BUN 21 mg/dL (7-18); CALCIUM 8.7 mg/dL (8.5-10.1); CHLORIDE 100 mmol/L (98-107); CO2 27 mmol/L (21-32); CREATININE 1.7 mg/dL (0.6-1.3); GLUCOSE 198 mg/dL (70-99); POTASSIUM 4.1 mmol/L (3.5-5.1); SODIUM 137 mmol/L (136-145)
[2020-01-31 14:14] LABS: APTT 26.8 Seconds (25.0-31.3); INR 1.1; PROTIME 11.7 Seconds (9.20-11.50)
[2020-01-31 14:21] LABS: ALKALINE PHOSPHATASE 16 U/L (46-116); CK-MB MASS < 0.5 ng/mL (<0.5-3.6); LIPASE 322 U/L (73-393); MAGNESIUM 1.5 mg/dL (1.8-2.4); NT-PRO BRAIN NAT PEPTIDE 706 pg/mL (<300); SGOT 31 U/L (15-37); SGPT 22 U/L (30-65); TOTAL BILIRUBIN 0.5 mg/dL (<0.1-1.0); TOTAL PROTEIN 7.1 g/dL (6.4-8.2)
[2020-01-31 14:47] LABS: INFLUENZA A ANTIGEN Negative (Negative); INFLUENZA B ANTIGEN Negative (Negative)
--- NOTE | 2020-01-31 17:00 | NUR ---
ER ADMIT TO 214 REPORT GIVEN VIA TELEPHONE PATIENT UP BY CART SETTLED IN BED AND ORIENTED TO AND CALL LIGHT PATIENT DENIES PAIN AT BEDSIDE
[2020-01-31] MEDS ORDERED: NORVASC 2.5 MG2.5 M1 PO (17:23)
[2020-01-31] MEDS ORDERED: LIPITOR40 MG PO (17:23)
[2020-01-31] MEDS ORDERED: PROAIR HFA8.5 GM INH (17:25)
[2020-01-31] MEDS ORDERED: ZPAK PO (17:26)
[2020-01-31 19:49] LABS: BE -0.3 mmol/L (-2 to +3); PCO2 38.4 mmHg (35.0-45.0); pH 7.413 (7.340-7.450)
[2020-01-31 20:45] LABS: MAGNESIUM 1.4 mg/dL (1.8-2.4); PHOSPHORUS* 4.9 mg/dL (2.5-4.9)
[2020-02-01] VITALS (35 sets, daily range): BP systolic 85–133; BP diastolic 49–66
[2020-02-01 03:28] LABS: ABSOLUTE LYMPHOCYTES 0.6 thou/uL (0.8-5.3); ABSOLUTE MONOCYTES 0.1 thou/uL (0.0-1.2); ABSOLUTE NEUTROPHILS 2.4 thou/uL (1.6-8.1); BASOPHILS 0.2 %; HEMATOCRIT 33.2 % (42.0-52.0); HEMOGLOBIN 11.4 gm/dL (14.0-18.0); LYMPHOCYTES 19.7 %; MCHC 34.4 g/dL (28.0-37.0); MCV 87.3 fL (80.0-100.0); MONOCYTES 4.6 %; MPV 9.6 fl. (7.2-11.1); NUCLEATED RBCS 0 /100WBC; PLATELET COUNT* 85 thou/uL (150-400); POLYS 75.5 %; RDW-CV 13.4 % (10.5-14.5); WBC 3.2 thou/uL (4.0-11.0)
[2020-02-01 03:51] LABS: ALBUMIN 2.4 g/dL (3.4-5.0); CALCIUM 8.1 mg/dL (8.5-10.1); CREATININE 1.7 mg/dL (0.6-1.3); MAGNESIUM 1.7 mg/dL (1.8-2.4); POTASSIUM 3.8 mmol/L (3.5-5.1); TOTAL BILIRUBIN 0.4 mg/dL (<0.1-1.0); TOTAL PROTEIN 6.1 g/dL (6.4-8.2)
[2020-02-01 05:36] LABS: BE -1.8 mmol/L (-2 to +3); PCO2 36.1 mmHg (35.0-45.0); PO2 73.8 mmHg (75.0-100.0); pH 7.411 (7.340-7.450)
--- NOTE | 2020-02-01 06:52 | NUR ---
PATIENT TO ICU FROM [facility] AT 2014. PATIENT WAS PLACED IN ENHANCED PRECAUTIONS UPON ARRIVAL. AT THE DIRECTION OF DR. DIEGO, MEASURES WERE TAKEN TO BEGIN TESTING THE PATIENT FOR COVID-19. INFECTION CONTROL, HEALTH DEPARTMENT, AND APPROPRIATE PHYSICIANS CALLED AND ALL GAVE APPROVAL TO COLLECT SWAB SPECIMENS FOR TESTING. PER THE [facility] DEPARTMENT, A NURSE WILL CALL TO DECIDE IF TESTING WILL BE DONE BY THE HEALTH DEPARTMENT/CDC IN THE MORNING. ALL REPORTS FILED AND FAXED TO APPROPRIATE PEOPLE AND DEPARTMENTS. PATIENT STILL NEEDS TO PRODUCE RESPIRATORY SPUTUM SAMPLE FOR TESTING. PATIENT REMAINED ON BIPAP FOR THE DURATION OF THE SHIFT. RESPIRATION RATE LABILE RANGING 20-43. ABG'S SHOW IMPROVEMENT. PLACED OSORIO CATHETER THIS SHIFT THE PATIENT WAS UNABLE TO URINATE UNDER HIS OWN POWER. PATIENT WAS RETAINING 750 ML URINE. REMAINS IN ENHANCED ISOLATION PENDING FURTHER TEST RESULTS. NURSING STAFF KESHAWN.
--- NOTE | 2020-02-01 12:48 | CON ---
[address] [address] CONSULTATION Name: ANTOINETTE CHANDRA Room: [address] IN .R.#: [id number] Admission: 01/31/20 Attend Phys: Fernie Short, Discharge: Date of : 48 Report #: [id number] THIS REPORT FOR: //name// cc: Noe Chatman MD, David L. MD ~ THIS REPORT FOR: //name// CC: Noe Mejia MD [facility] Fernie Short CARDIOLOGY CONSULT INDICATION: Pulmonary emboli and pneumonia in patient with recent prior percutaneous coronary intervention. HISTORY OF PRESENT ILLNESS: The patient is a very pleasant 69-year-old gentleman who is known to our service. He has a history of coronary artery disease with percutaneous coronary intervention on multiple occasions, most recently on 09/06/2019 at which time he had intervention to the LAD and circumflex coronary arteries with drug-eluting stent placement. LV function is preserved. He is not having any issues with angina or heart failure. The patient is being treated for pneumonia for the past several days as an outpatient. He presented to the hospital with hypoxia and increasing shortness of breath. The patient was found to have multiple pulmonary emboli in the right lung. He is being treated for pneumonia and pulmonary emboli presently. From admission, he is now breathing better. He denies any chest pain at this time, although he was having some chest discomfort prior to admission. His symptoms do not sound like angina. PAST MEDICAL HISTORY: 1. Coronary artery disease. 2. Hyperlipidemia. 3. Hypertension. 4. Hypothyroidism. 5. Chronic renal insufficiency. HOME MEDICATIONS: Aldactone 25 mg daily, carvedilol 25 mg b.i.d., Synthroid 200 mcg daily, Effient 10 mg daily, furosemide 20 mg daily, amlodipine 10 mg daily, Lipitor 40 mg daily, albuterol inhaler 2 puffs q. 4-6 hours p.r.n., Z-RUBI as directed, aspirin 81 mg daily, TriCor 145 mg daily, Nitrostat sublingual p.r.n., losartan 100 mg daily. ALLERGIES: MELOXICAM, PENICILLIN, AND SULFAS. SOCIAL HISTORY: The patient does not smoke. He [place] [address] CONSULTATION Name: ANTOINETTE CHANDRA Room: [address]#: [id number] Admission: 01/31/20 Attend Phys: Fernie Short, Discharge: Date of : 48 Report #: [id number] FAMILY HISTORY: Noncontributory. PHYSICAL EXAMINATION: VITAL SIGNS: Blood pressure 128/63, pulse 60 and regular. GENERAL: This is a pleasant gentleman in no distress. Mood and affect appropriate. HEENT: Extraocular muscles intact. Mucous membranes are moist. NECK: Shows no jugular venous distention. There are no carotid bruits. CHEST: Reveals diminished breath sounds without wheezes or rales. CARDIOVASCULAR: Reveals a regular rhythm with normal S1 and S2. I do not appreciate gallop or murmur. ABDOMEN: Reveals normal bowel sounds. The abdomen is soft, nontender. EXTREMITIES: Shows no edema. SKIN: Warm and dry. LABORATORY DATA: A 12-lead EKG shows sinus rhythm without acute ST or T-wave abnormality. Labs are reviewed. Sodium 137, potassium 3.8, chloride 102, bicarbonate 26, BUN 33, creatinine 1.7, serum glucose 339. EGFR 40. Troponins are unremarkable. White blood cell count 3.2, hemoglobin 11.4, platelet count 85,000. Chest x-ray shows persistent right upper lobe and left lower to mid lobe infiltrates. CTA of the chest shows right-sided pulmonary emboli. IMPRESSION AND RECOMMENDATIONS: 1. Coronary artery disease, presently stable. In the setting of acute pulmonary emboli, he will require full anticoagulation. At this point in time, I would continue Effient and hold aspirin. 2. Acute pulmonary emboli. The patient will need full anticoagulation for 6 months. In this setting as stated above, I would hold aspirin and continue Effient if possible. 3. Hypercoagulable workup pending resolution of acute illness. 4. Hypertension. Blood pressure adequately controlled presently. 5. Hyperlipidemia. Continue atorvastatin. 6. Pneumonia per primary physician. 7. Chronic renal insufficiency, appears stable at present. <ELECTRONICALLY SIGNED> By: Sukhwinder Robertson MD, FACC 02/01/20 1248 1117 [id number] Robertson MD, FACC /nt
[2020-02-01 15:37] LABS: URINE BILIRUBIN NEGATIVE (Negative); URINE BLOOD NEGATIVE (Negative); URINE CLARITY CLEAR; URINE COLOR YELLOW; URINE GLUCOSE-RANDOM 2+ (Negative); URINE KETONES NEGATIVE (Negative); URINE LEUKOCYTES-REFLEX NEGATIVE (Negative); URINE NITRITE-REFLEX NEGATIVE (Negative); URINE PROTEIN NEGATIVE (Negative); URINE SPECIFIC GRAVITY 1.015 (1.005-1.030); URINE UROBILINOGEN 0.2 E.U./dl (0.2-1.0)
--- NOTE | 2020-02-01 17:34 | NUR ---
PT REMAINS ON ENHANCED PRECAUTIONS IN NEGATIVE PRESSURE ROOM. PT ON HEATED HF O2. OSORIO TO DD. IVF INFUSING. DENIES PAIN. SLOWLY PROGRESSING TOWARDS GOALS.
[2020-02-02] VITALS (81 sets, daily range): BP systolic 119–211; BP diastolic 54–83
[2020-02-02 04:06] LABS: HEMATOCRIT 36.1 % (42.0-52.0); HEMOGLOBIN 12.4 gm/dL (14.0-18.0); MCH 29.4 pg (26.0-34.0); MCHC 34.3 g/dL (28.0-37.0); MCV 85.7 fL (80.0-100.0); MPV 9.5 fl. (7.2-11.1); RBC 4.21 mil/uL (4.50-6.00); RDW-CV 13.5 % (10.5-14.5)
[2020-02-02 04:14] LABS: WBC 11.7 thou/uL (4.0-11.0)
[2020-02-02 04:20] LABS: ALBUMIN 2.4 g/dL (3.4-5.0); CREATININE 1.5 mg/dL (0.6-1.3); MAGNESIUM 1.9 mg/dL (1.8-2.4); TOTAL BILIRUBIN 0.3 mg/dL (<0.1-1.0); TOTAL PROTEIN 6.4 g/dL (6.4-8.2)
--- NOTE | 2020-02-02 06:39 | NUR ---
PT STILL ON FRANCISCO VIRUS PRECAUTION PENDING SEND OUT TODAY FOR RESULTS. ASSESSMENT CHARTED. PT DID DESATED IN THE MID TO LOW 80S WITH HIGH FLOW AND HAD TO BE PLACED BACK ON BIPAP. ON BIPAP WAS BEING VERY ANXIOUS AND BREATHING IN THE RATE OF 35-40S. DR. SALDANA PAGED AND RECIEVED ATIVAN PRN FOR ANXIETY. CONTINUE WITH PLAN OF CARE.
--- NOTE | 2020-02-02 10:15 | NUR ---
INT ROUNDS: PT IN ICU, ON BIPAP AND HAS PENDING LABS FOR COVID19. WILL FOLLOW AND ASSESS ONCE RESULT BACK. PT IS FROM HOME WITH SPOUSE.
--- NOTE | 2020-02-02 11:29 | NUR ---
PATIENT NOT BREATHING VERY WELL, DR GRIGGS NOTIFIED, ATTEMPTED TO CALL AND LEFT MESSAGE. WILL CONTINUE TO CALL AFTER PATIENT STABILIZED IF DOES NOT RETURN CALL. PATIENT REQUIRING INTUABTION AT THIS TIME.
--- NOTE | 2020-02-02 15:46 | NUR ---
PATIENT INTUBATED AND SEATED AT THIS TIME. INTUBATED AT 11:55 WITH 20MG 20MG ETOMIDATE, 20MG SUCCICOLINE, FENTANYL PUSH 100MCG, 5 MG VERSED. BRONCHOSCOPY PERFORMED AT BEDSIDE BY DR ARAUJO. TOLERATED WELL. CENTRAL LINE INSERTION AT BEDSIDE BY DR GRIGGS. LINE IN PLACE. OG TUBE IN PLACE. ET TUBE IN PLACE. CXR CONFIRMED ALL. FENTANYL AND PRECEDEX GTT RUNNING. ANTIBIOTICS INFUSING MAR ORDERED, FAMILY UPDATED THROUGHOUT. DR DIEGO ALSO UPDATED.
--- NOTE | 2020-02-02 16:18 | 2DMMODE ---
[place] [address] 2 D/M-MODE ECHOCARDIOGRAM Name: ANTOINETTE CHANDRA Karol Room: [address] IN [facility]#: [id number] Admission: 01/31/20 Attend Phys: Fernie Chauhan Discharge: Date of : 48 Date of Service: 02/02/20 1617 Report #: [id number] THIS REPORT FOR: cc: Noe Chatman MD, David L. MD Blick, David R. MD [facility] ~ APPROVED REPORT Study performed: 02/02/2020 13:52:20 EXAM: Comprehensive 2D, Doppler, and color-flow Echocardiogram Patient Location: In-Patient Room #: 001 Status: routine BSA: 2.17 HR: 63 bpm BP: 139/64 mmHg Rhythm: NSR Other Information Study Quality: Fair Indications Pulmonary Hypertension 2D Dimensions IVSd: 12.30 (7-11mm) LVDd: 47.90 mm PWd: 11.04 (7-11mm) LVDs: 27.82 (25-40mm) Aortic Root: 36.36 mm Volumes Left Atrial Volume (Systole) LA ESV Index: 22.60 mL/m2 Aortic Valve AoV Peak Juaquin.: 1.20 m/s AO Peak Gr.: 5.80 mmHg LVOT Max P.24 mmHg AO Mean Gr.: 3.40 mmHg LVOT Mean P.23 mmHg LVOT Max V: 1.03 m/s AO V2 VTI: 25.51 cm LVOT Mean V: 0.69 m/s LVOT V1 VTI: 21.86 [place] [address] 2 D/M-MODE ECHOCARDIOGRAM Name: CORAZONANTOINETTE L Room: [address]#: [id number] Admission: 01/31/20 Attend Phys: Fernie Chauhan Discharge: Date of : 48 Date of Service: 02/02/20 1617 Report #: [id number] Mitral Valve E/A Ratio: 1.34 MV Decel. Time: 198.91 ms MV E Max Juaquin.: 0.78 m/s MV PHT: 57.68 ms MVA (PHT): 3.81 cm2 TDI E/Lateral E': 6.00 E/Medial E': 7.80 Medial E' Juaquin.: 0.10 m/s Lateral E' Juaquin.: 0.13 m/s Pulmonary Valve PV Peak Juaquin.: 0.88 m/s PV Peak Gr.: 3.10 mmHg Left Ventricle The left ventricle is normal size. There is normal LV segmental wall motion. There is normal left ventricular wall thickness. Left ventricular systolic function is normal. The left ventricular ejection fraction is within the normal range. LVEF is 55-60%. This study is not technically sufficient to allow evaluation of the LV diastolic function. Right Ventricle The right ventricle is normal size. The right ventricular systolic function is normal. Atria The left atrium size is normal. The right atrium size is normal. Aortic Valve The aortic valve is normal in structure. No aortic regurgitation is present. There is no aortic valvular stenosis. Mitral Valve The mitral valve is normal in structure. There is trace mitral valve regurgitation noted. No evidence of mitral valve stenosis. Tricuspid Valve The tricuspid valve is normal in structure. Trace tricuspid regurgitation. Pulmonic Valve The pulmonary valve is normal in structure. There is no pulmonic [place] [address] 2 D/M-MODE ECHOCARDIOGRAM Name: HUGOVIKANTOINETTE L Room: [address] IN ..#: [id number] Admission: 01/31/20 Attend Phys: Fernie Chauhan Discharge: Date of : 48 Date of Service: 02/02/207 Report #: [id number] Great Vessels The aortic root is normal in size. IVC is dilated. Pericardium There is no pericardial effusion. <Conclusion> Left ventricular systolic function is normal. The left ventricular ejection fraction is within the normal range. <ELECTRONICALLY SIGNED> By: Noe Schwab MD, [facility] 02/02/20 1617 16 16 Noe Schwab MD, [facility] /INF
[2020-02-02 16:49] LABS: BE 1.6 mmol/L (-2 to +3); PCO2 38.9 mmHg (35.0-45.0); PO2 65.8 mmHg (75.0-100.0); pH 7.439 (7.340-7.450)
--- NOTE | 2020-02-02 18:34 | NUR ---
PATIENT MORE STABLE TOWARDS END OF SHIFT. VITALS WNL. O2 SAT WNL. FAMILY HAS BEEN UPDATED THROUGHOUT SHIFT. RESTRAINTS IN PLACE. PRECEDEX GTT AND FENTANYL GTT RUNNING AT THIS TIME. VENT IN PLACE. PATIENT SWEATY AND SLIGHT TEMP 99.9. NO APPARENT PAIN. OG HOOKED TO LIS. NO RESULTS BACK FROM COVID-19 TESTING, CONTINUE TO FOLLOW ISOLOATION PRECAUTIONS. BED SHEETS CHANGED AND NEW GOWN PLACED ON PATIENT. BED IN LOWEST POSITION, CALL LIGHT IN REACH, SHELVER IN PLACE.
[2020-02-03] VITALS (43 sets, daily range): BP systolic 142–165; BP diastolic 60–77
--- NOTE | 2020-02-03 04:19 | NUR ---
PROBABLE SEIZURE ACTIVITY WHEN TURNING PT. ATIVAN GIVEN PER PRN ORDER. SEIZURE ACTIVITY STOPPED AFTER ATIVAN WAS GIVEN. TEMPERATURE CHECKED, 101.2, TYLENOL GIVEN, ICE PACKS APPLIED BILAT AXILLARY. COVID-19 RESULTS STILL PENDING. WILL CONTINUE TO MONITOR.
[2020-02-03 04:39] LABS: HEMATOCRIT 36.6 % (42.0-52.0); HEMOGLOBIN 12.4 gm/dL (14.0-18.0); MCH 29.6 pg (26.0-34.0); MCHC 33.9 g/dL (28.0-37.0); MCV 87.4 fL (80.0-100.0); MPV 9.6 fl. (7.2-11.1); RBC 4.19 mil/uL (4.50-6.00); RDW-CV 13.6 % (10.5-14.5); WBC 8.5 thou/uL (4.0-11.0)
[2020-02-03 04:53] LABS: ALBUMIN 2.2 g/dL (3.4-5.0); ALKALINE PHOSPHATASE 13 U/L (46-116); ANION GAP 7 mmol/L (7-16); BUN 31 mg/dL (7-18); CALCIUM 8.2 mg/dL (8.5-10.1); CHLORIDE 110 mmol/L (98-107); CO2 29 mmol/L (21-32); CREATININE 1.4 mg/dL (0.6-1.3); GLUCOSE 214 mg/dL (70-99); MAGNESIUM 2.2 mg/dL (1.8-2.4); NT-PRO BRAIN NAT PEPTIDE 424 pg/mL (<300); POTASSIUM 4.3 mmol/L (3.5-5.1); SGOT 29 U/L (15-37); SGPT 17 U/L (30-65); SODIUM 146 mmol/L (136-145); TOTAL BILIRUBIN 0.3 mg/dL (<0.1-1.0); TOTAL PROTEIN 6.4 g/dL (6.4-8.2); TROPONIN-I LEVEL <0.06 ng/mL (<0.06)
--- NOTE | 2020-02-03 10:32 | NUR ---
CALLED TO UPDATE. DR GRIGGS HAD SPOKEN TO HER TOO. I ALLOWED AND SON TO WAVE AT HIM THROUGH EXTERIOR ICU WINDOW. PATIENT NODDING HEAD AND WAVING ON COMMAND.
--- NOTE | 2020-02-03 10:41 | NUR ---
ICU rounds: On vent. Continue to await Covid19 results
--- NOTE | 2020-02-03 12:30 | NUR ---
REPORTED CONTINUED ELEVATED BS TO DR. GRIGGS.
--- NOTE | 2020-02-03 15:30 | NUR ---
DR CHAVEZ CONSULTED. ROUNDED ON PATIENT.
[2020-02-03 15:59] LABS: BE 2.5 mmol/L (-2 to +3); PCO2 44.3 mmHg (35.0-45.0); PO2 98.5 mmHg (75.0-100.0); pH 7.414 (7.340-7.450)
--- NOTE | 2020-02-03 16:41 | NUR ---
REPORTED CRACKLES AND RESIDUALS TO DR. GRIGGS, ORDERS RECEIVED.
--- NOTE | 2020-02-03 17:35 | NUR ---
DID NOT PROGRESS TOWARDS GOALS TODAY. UPDATED. CONTINUES ON 100% ON THE VENTILATOR. INCREASED SEDATION TO HELP HIM TOLERATE CARE WITHOUT DESATURATING. AWAITING COVID19 RESULTS.
[2020-02-04] VITALS (38 sets, daily range): BP systolic 118–166; BP diastolic 54–69
[2020-02-04 05:44] LABS: ALBUMIN 2.1 g/dL (3.4-5.0); ALKALINE PHOSPHATASE 11 U/L (46-116); ANION GAP 6 mmol/L (7-16); BUN 34 mg/dL (7-18); CALCIUM 8.4 mg/dL (8.5-10.1); CHLORIDE 108 mmol/L (98-107); CO2 32 mmol/L (21-32); CREATININE 1.4 mg/dL (0.6-1.3); GLUCOSE 192 mg/dL (70-99); MAGNESIUM 2.3 mg/dL (1.8-2.4); NT-PRO BRAIN NAT PEPTIDE 438 pg/mL (<300); SGOT 24 U/L (15-37); SGPT 17 U/L (30-65); SODIUM 146 mmol/L (136-145); TOTAL BILIRUBIN 0.3 mg/dL (<0.1-1.0); TOTAL PROTEIN 6.1 g/dL (6.4-8.2); TROPONIN-I LEVEL <0.06 ng/mL (<0.06)
[2020-02-04 06:16] LABS: HEMATOCRIT 34.9 % (42.0-52.0); HEMOGLOBIN 11.9 gm/dL (14.0-18.0); MCH 29.8 pg (26.0-34.0); MCHC 34.1 g/dL (28.0-37.0); MCV 87.5 fL (80.0-100.0); MPV 9.5 fl. (7.2-11.1); RBC 3.98 mil/uL (4.50-6.00); RDW-CV 13.8 % (10.5-14.5); WBC 7.8 thou/uL (4.0-11.0)
--- NOTE | 2020-02-04 07:35 | NUR ---
ASSESMENTS CHARTED. PATIENT REMAINS INTUBED AND SEDATED ON VENTILATOR. REMAINS IN ENHANCED PRECAUTIONS PENDING COVID-19 LAB RESULTS. TUBE FEEDINGS RUNNING AT 10 ML/HR. FENTANYL, PROPOFOL,AND PRECEDEX GTTS STILL RUNNING. PATIENT SPIKED FEVER AROUND 0400, TMAX 102.5. PATIENT RECEIVED TYLENOL PER ORDERS, ALSO PLACED ICE PACKS TO PATIENT AND ADMINISTERED ALCOHOL AND ICE BATH TO COOL PATIENT. TEMPERATURE RETURNED TO NORMAL LIMITS. LAST TEMP 98.8. PATIENT DID NOT PROGRESS TOWARD GOALS THIS SHIFT.
[2020-02-04 11:03] LABS: BE 5.3 mmol/L (-2 to +3); PCO2 43.9 mmHg (35.0-45.0); PO2 67.4 mmHg (75.0-100.0); pH 7.452 (7.340-7.450)
--- NOTE | 2020-02-04 11:21 | NUR ---
ICU rounds: Pt febrile overnight. Covid-19 test still pending. Seizures, on keppra, neuro following. On Vent. PE and PNA, treating. Plan for MRI once Covid test results back.
--- NOTE | 2020-02-04 18:54 | NUR ---
PT ASSESSMENT CHARTED. VSS THROUGHOUT SHIFT. COVID-19 LAB CAME BACK POSITIVE. THIS INFORMATION WAS GIVEN TO THE HIMS MD WELL CONSULTS. PULM CALLED AND TALKED WITH FAMILY TO UPDATE THEM. T-MAX 99.2. PT REMAINS IN AIRBORN PRECAUTIONS.
[2020-02-05] VITALS (29 sets, daily range): BP systolic 107–153; BP diastolic 45–74
[2020-02-05 06:13] LABS: BE 4.1 mmol/L (-2 to +3); PCO2 37.8 mmHg (35.0-45.0); PO2 96.1 mmHg (75.0-100.0); pH 7.482 (7.340-7.450)
[2020-02-05 06:21] LABS: HEMATOCRIT 34.1 % (42.0-52.0); HEMOGLOBIN 11.5 gm/dL (14.0-18.0); MCH 29.5 pg (26.0-34.0); MCHC 33.8 g/dL (28.0-37.0); MCV 87.4 fL (80.0-100.0); MPV 8.8 fl. (7.2-11.1); RBC 3.9 mil/uL (4.50-6.00); RDW-CV 13.5 % (10.5-14.5); WBC 6.4 thou/uL (4.0-11.0)
[2020-02-05 06:34] LABS: ALBUMIN 1.8 g/dL (3.4-5.0); CALCIUM 7.9 mg/dL (8.5-10.1); CREATININE 1.2 mg/dL (0.6-1.3); MAGNESIUM 2.3 mg/dL (1.8-2.4); POTASSIUM 4.3 mmol/L (3.5-5.1); TOTAL BILIRUBIN 0.4 mg/dL (<0.1-1.0); TOTAL PROTEIN 5.9 g/dL (6.4-8.2)
--- NOTE | 2020-02-05 08:18 | NUR ---
ASSESSMENTS CHARTED. PATIENT RAN LOW GRADE FEVER AT START OF SHIFT, ADMINISTERED ICE PACKS AND TYLEONL PER ORDERS. REMAINED AFEBRILE FOR THE REST OF THE SHIFT. PATIENT SHOWING LITTLE PROGRESS TOWARD GOALS OVER SHIFT. NO SIGNIFICANT EVENTS THIS SHIFT. NURSING STAFF KESHAWN
--- NOTE | 2020-02-05 11:50 | NUR ---
Nutrition: RECOMMEND JEVITY 1.5 @ GOAL RATE 65mL/HR TO MEET 100% OF NEEDS. See RD Assessment Form for details.
--- NOTE | 2020-02-05 13:08 | PATH ---
[address] [address] PATHOLOGY RPT PROCEDURE Name: ANTOINETTE CHANDRA Room: [address] IN [facility]#: [id number] Admission: 01/31/20 Date of : 48 Discharge: Report #: [id number] Path Case #: [id number] Note [facility] Accession Number: [id number] TESTS RESULT FLAG UNITS REF RANGE LAB Clinician Provided Cytology Information No. of containers..01 Other (Miscellaneous) Source: BRONCH WASH RLL DIAGNOSIS: 02 BRONCH WASH RLL NEGATIVE FOR MALIGNANT CELLS. MANY BRONCHIAL EPITHELIAL CELLS, ABUNDANT PULMONARY MACROPHAGES, RED BLOOD CELLS AND FEW INFLAMMATORY CELLS. SILVER METHENAMINE STAINED SMEARS ARE POSITIVE FOR RARE FUNGAL ELEMENTS SUGGESTING JOHANN SPECIES AND ARE NEGATIVE FOR PNEUMOCYSTIS JIROVECI ORGANISMS. Signed out by: 02 Armani Osorio MD, Pathologist NPI- [id number] Performed by: Shannon Chen, Program Coordinator ([facility]) Gross description: 01 4ML, RED, 1 TP 1GMS /LCS 02/03/20201944 Local FLAG LEGEND: L-Low Normal,H-High Normal,LL-Alert Low,HH-Alert High <-Panic Low,>-Panic High,A-Abnormal,AA-Critical Abnormal Performed at: [address] [place] [address] Stefano Morrow MD, [address] [address] Armani Osorio MD, Performed at: [address], [place], [place] [id number] MD Stefano Morrow MD Phone: [phone]
--- NOTE | 2020-02-05 14:06 | NUR ---
ICU Rounds: Pt continue on precautions for covid-19.
--- NOTE | 2020-02-05 15:54 | NUR ---
WOUND NURSE: REVIEWED PHOTOGRAPH OF PATIENT'S BUTTOCK LESIONS AND BASED ON THIS, PRESENTS INCONTINENCE ASSOCIATED DERMATITIS: RED RASHY EXCORIATIONS NOTED OVER NONBONY PROMINENCES. RECOMMENDED Q 2 HOUR REPOSITIONING AND USE OF MOISTURE BARRIER OINTMENT Q SHIFT AND PRN.L NURSEPEYTON CARING FOR PATIENT UNDERSTANDS.
--- NOTE | 2020-02-05 16:41 | NUR ---
PT ASSESSMENT CHARTED. VSS THROUGHOUT SHIFT. T-MAX 103.1. PT RECEIVED SCHEDULED TYLENOL AND COLD RAGS/ICE PACKS PLACED ON PATIENT. PT ALERT AND FOLLOWING COMMANDS THIS MORNING DURING SEDATION VACATION. HE WAS ABLE TO EQUALLY GRASP WITH BOTH HANDS, WIGGLE HIS TOES AND NOD HIS HEAD YES OR NO. PT BECAME INCREASINGLY TACHYPNIC AROUND NOON WITH AN O2 DROP INTO THE 70'S. PT PLACED BACK ON SEDATION. PT CONTINUES TO BE TACHYPNIC BUT IS NOT LABORED WITH HIS BREATHING, O2 SATURATION 94-95% AT FIO2 50%.TUBE FEEDING ADVANCED TO 20 ML/HR AND TOLERATING WELL. NO OTHER EVENTS DURING THIS SHIFT. WILL CONTINUE TO MONITOR.
--- NOTE | 2020-02-05 22:45 | CON ---
[address] [address] CONSULTATION Name: ANTOINETTE CHANDRA Karol Room: [address] IN .R.#: [id number] Admission: 01/31/20 Attend Phys: Fernie Short, Discharge: Date of : 48 Report #: [id number] THIS REPORT FOR: //name// cc: Noe Cahtman MD, David L. MD ~ THIS REPORT FOR: //name// CC: Noe Short DATE OF SERVICE: 02/01/2020 INFECTIOUS DISEASE CONSULTATION REASON FOR CONSULTATION: I was asked to evaluate concerning pneumonia and respiratory failure. HISTORY OF PRESENT ILLNESS: The patient is a 69-year-old with underlying history of coronary artery disease, had noticed 1-week history of progressive dyspnea. He had a nonproductive cough and low-grade fever. No chest pain or hemoptysis. He has had no travel. His has been without illness. He has had no other exposures to ill persons. He noticed, at his job, no other persons with respiratory infection. Due to his progressive dyspnea, he was seen in the outpatient clinic and placed on azithromycin; this had no effect on his progress. He therefore was seen in the Emergency Room with hypoxia. He had CT scan performed, which showed bilateral pulmonary emboli and bilateral pulmonary infiltrates. He has had no previous history of DVT or PE. He has had no previous pneumonia. He is a nonsmoker, with minimal alcohol intake. No HIV risk factors. He did have hypothyroidism and is on replacement. He does have chronic kidney disease. REVIEW OF SYSTEMS: A 10-point review of system was negative other than what has been described above. ALLERGIES: PENICILLIN, SULFA, MELOXICAM. MEDICATIONS: Included Cozaar, Nitrostat, TriCor, aspirin, Z-RUBI, ProAir, Lipitor, Norvasc, Lasix, Effient, Synthroid, Coreg, Aldactone. PAST MEDICAL HISTORY: Coronary artery disease, hypothyroidism, hyperlipidemia, hypertension, chronic kidney disease, tonsillectomy, left groin lymph node biopsy in 11/2018. FAMILY HISTORY: Esophageal cancer and coronary artery disease. SOCIAL HISTORY: As noted above with no tuberculosis exposure [place] [address] CONSULTATION Name: ANTOINETTE CHANDRA Room: [address]#: [id number] Admission: 01/31/20 Attend Phys: Fernie Short, Discharge: Date of : 48 Report #: [id number]. PHYSICAL EXAMINATION: VITAL SIGNS: He was afebrile and hemodynamically stable. GENERAL: He was on BiPAP and dyspneic with talking. SKIN: Without rash or decubitus. No palpable adenopathy. HEENT: Eyes without scleral icterus or conjunctivitis. Mouth without mucositis. NECK: Supple. LUNGS: Coarse breath sounds bilaterally with no consolidation. HEART: Regular without appreciable murmur, gallop or rub. ABDOMEN: Soft with no mass or hepatosplenomegaly. No CVA tenderness. EXTREMITIES: Without clubbing, cyanosis or edema. NEUROLOGIC: Cranial nerves were intact. Strength in his upper and lower extremities was normal. PSYCHIATRIC: Mood was normal with no anxiety or depression. MUSCULOSKELETAL: Spine was nontender with no CVA tenderness. GENITAL: Examination not performed. RECTAL: Examination not performed. LABORATORY STUDIES: Reviewed. Microbiology reports reviewed. Chest x-ray and CT scan and ultrasounds were reviewed. IMPRESSION: 1. The patient with bilateral pulmonary infiltrates consistent with community-acquired pneumonia. 2. Bilateral pulmonary emboli. 3. Respiratory failure. 4. Hepatic cyst. 5. Hypothyroid, on replacement. Low TSH may be related to his replacement or euthyroid sick. 6. Acute kidney injury. 7. Disseminated intravascular coagulation. 8. Coronary artery disease. RECOMMENDATIONS: Agree with antibiotic coverage. Obtain cultures of blood and sputum along with viral respiratory panel and Coronavirus screening. We will also recommend further imaging with abdomen and pelvis included. Await Hematology/Oncology evaluation. <ELECTRONICALLY SIGNED> By: Fabrice Small MD 02/05/20 2245 [id number] Small MD /nt
[2020-02-06] VITALS (42 sets, daily range): BP systolic 100–146; BP diastolic 44–68
[2020-02-06 04:53] LABS: HEMOGLOBIN 11.5 gm/dL (14.0-18.0); MCH 29.4 pg (26.0-34.0); MCHC 33.7 g/dL (28.0-37.0); MCV 87.3 fL (80.0-100.0); RBC 3.9 mil/uL (4.50-6.00); RDW-CV 13.7 % (10.5-14.5); WBC 6.5 thou/uL (4.0-11.0)
[2020-02-06 05:12] LABS: CALCIUM 8.1 mg/dL (8.5-10.1); CREATININE 1.4 mg/dL (0.6-1.3); MAGNESIUM 2.3 mg/dL (1.8-2.4)
[2020-02-06 05:26] LABS: PHOSPHORUS* 3.2 mg/dL (2.5-4.9)
--- NOTE | 2020-02-06 05:30 | NUR ---
PT. REMAINS SEDATED ON VENTILATOR. FIO2 DOWN TO 45%. TUBE FEEDING RUNNING AT 40ML/HR (GOAL 65). PT. RESPONDS TO STIMULI. BILAT SOFT WRIST RESTRAINTS IN PLACE. PROPOFOL AND PRECEDEX GTT'S FOR SEDATION. WILL CONTINUE TO MONITOR.
[2020-02-06 11:06] LABS: BE 4.1 mmol/L (-2 to +3); PCO2 37.2 mmHg (35.0-45.0); PO2 62.9 mmHg (75.0-100.0); pH 7.487 (7.340-7.450)
--- NOTE | 2020-02-06 11:33 | NUR ---
PT TO ICU ROOM 5 AT 1030. VSS AT THIS TIME. NO RIGHT LE PULSE NOTED. MD NOTIFIED. HEPARIN DRIP STARTED AND PATIENT WILL BE GOING TO SURGERY SHORTLY. WILL CONTINUE TO MONITOR.
--- NOTE | 2020-02-06 20:03 | NUR ---
PT ASSESSMENT CHARTED. VSS THROUGHOUT DAY. PROPOFOL TURNED OFF FOR SEDATION VACATION RIGHT AT 0800. PT ALERT BUT DROWSY AND ANSWERS QUESTIONS WITH NOD, EQUAL HAND GRASPS, AND ABLE TO PICK BOTH FEET UP OFF THE BED. NO SEIZURE ACTIVITY NOTED. PT HAD ANOTHER EPISODE OF DECREASED O2 SATURATION AROUND NOON TODAY. PT UNABLE TO TOLERATE TURNING OR MOVEMENT IN THE BED WITHOUT O2 DROPPING TO 82-83% AND STAYING THERE. FIO2 INCREASED BY END OF SHIFT UP TO 80% FOR AN O2 SATURATION >95%. Q2H TURNS. PT STILL TOLERATING TUBE FEEDINGS WITH GOAL MET AND IS RUNNING 65MLS/HR WITH LAST RESIDUAL CHECK BEING 0. PT HAD 2 LARGE LOOSE BOWEL MOVEMENTS TODAY. WHILE PATIENT WAS AWAKE HE STATED THAT HE WAS NOT IN ANY PAIN. NO OTHER EVENTS DURING THIS SHIFT.
[2020-02-07] VITALS (39 sets, daily range): BP systolic 105–150; BP diastolic 48–68
[2020-02-07 03:36] LABS: HEMATOCRIT 32.5 % (42.0-52.0); MCH 29.5 pg (26.0-34.0); MCHC 33.8 g/dL (28.0-37.0); MCV 87.3 fL (80.0-100.0); MPV 8.8 fl. (7.2-11.1); RBC 3.72 mil/uL (4.50-6.00); RDW-CV 13.5 % (10.5-14.5); WBC 6.5 thou/uL (4.0-11.0)
[2020-02-07 03:51] LABS: CALCIUM 7.9 mg/dL (8.5-10.1); CREATININE 1.6 mg/dL (0.6-1.3); MAGNESIUM 2.3 mg/dL (1.8-2.4); POTASSIUM 4.1 mmol/L (3.5-5.1)
[2020-02-07 05:27] LABS: BE 3.9 mmol/L (-2 to +3); PCO2 40.1 mmHg (35.0-45.0); PO2 83.2 mmHg (75.0-100.0); pH 7.461 (7.340-7.450)
[2020-02-07 06:07] LABS: ADENOVIRUS Negative (Negative); INFLUENZA A Negative (Negative); INFLUENZA B Negative (Negative); METAPNEUMOVIRUS Negative (Negative); PARAINFLUENZA 1 Negative (Negative); PARAINFLUENZA 2 Negative (Negative); PARAINFLUENZA 3 Negative (Negative); RHINOVIRUS Negative (Negative); RSV A Negative (Negative); RSV B Negative (Negative)
--- NOTE | 2020-02-07 06:29 | NUR ---
ASSESSMENTS CHARTED. PATIENT REMAINS INTUBATED ON VENTILATOR DURING SHIFT. PATIENT BECAME FEBRILE TWICE DURING THE SHIFT. TYLENOL AND ICE PACKS APPLIED TO REDUCE FEVER BOTH TIMES. CALLED HIMS TO COLLABORATE POSSIBILITY OF ALTERING TYLENOL ORDER TO KEEP FEVER REDUCED. ORDERS RECEIVED. PATIENT WOKE UP ONCE OVER SEDATION. ANSWERED QUESTIONS APPROPRIATELY, MOVED LEGS AND SQUEEZED HANDS APPROPRIATELY. TUBE FEEDING RATE DECREASED CITING INCREASING RESIDUALS. CURRENT RATE AT 50 ML/HR. PATIENT HAD 1 LARGE BOWEL MOVEMENT THIS SHIFT, ALL LIQUID. MORNING LAGS DRAWN, LACTIC ACID ELEVATED. AWAITING RESULTS OF REDRAW. MORNING ABG SHOWED PA02/FIO2 RATIO AT 118. GIVEN ARDS DIAGNOSIS BY PULMONARY ANNUAL GIVING OFFICER, PATIENT MAY BENEFIT FROM BEING PLACED IN PRONE POSITION. FIO2 TITRATED DOWN TO 70% THIS SHIFT. WILL SPEAK WITH PULMONARY ABOUT SUGGESTION. PATIENT REMAINS IN ISOLATION FOR POSITIVE COVID-19 INFECTION. NO FAMILY CALLED FOR STATUS UPDATE THIS SHIFT. NURSING STAFF FRANKTM.
--- NOTE | 2020-02-07 18:12 | NUR ---
PATIENT SOMEWHAT PRGORESSING WELL TOWARDS GOALS. CHEST XRAY CONTINUING TO IMPROVE BUT UNABLE TO WEAN DOWN ON VENT SETTINGS. STARTED MY SHIFT ON 70% FIO2, TITRATED UP TO 100% ON FIO2 DURING SHIFT AND BACK DOWN TO 90%. 2 LOOSE BM, HELD REGLAN AND COLACE THIS SHIFT. VITALS REMAIN WITHIN NORMAL LIMITS OTHER THAN O2. CALLED AND UPDATED BY THIS RN. REQUESTED A PHYSICIAN CALL HER ONCE A SHIFT SINCE UNABLE TO VISIT, REPORTED TO DR DALEY, HE ACKNOWLEDGED. PATIENT ON PROPOFOL AND PRECEDEX, STILL AWAKE ENOUGH TO FOLLOW COMMANDS. BED IN LOWEST POSITION, CALL LIGHT IN REACH, FIELD WORKER IN PLACE.
[2020-02-08] VITALS (25 sets, daily range): BP systolic 100–140; BP diastolic 40–72
[2020-02-08 06:06] LABS: HEMATOCRIT 30.7 % (42.0-52.0); HEMOGLOBIN 10.3 gm/dL (14.0-18.0); MCH 29.5 pg (26.0-34.0); MCHC 33.6 g/dL (28.0-37.0); MCV 87.8 fL (80.0-100.0); MPV 9.3 fl. (7.2-11.1); RBC 3.5 mil/uL (4.50-6.00); RDW-CV 13.7 % (10.5-14.5); WBC 8.7 thou/uL (4.0-11.0)
[2020-02-08 06:16] LABS: ALBUMIN 1.7 g/dL (3.4-5.0); CALCIUM 7.7 mg/dL (8.5-10.1); CREATININE 1.5 mg/dL (0.6-1.3); MAGNESIUM 2.5 mg/dL (1.8-2.4); POTASSIUM 4.1 mmol/L (3.5-5.1); TOTAL BILIRUBIN 0.3 mg/dL (<0.1-1.0); TOTAL PROTEIN 5.9 g/dL (6.4-8.2)
[2020-02-08 12:31] LABS: URINE BILIRUBIN NEGATIVE (Negative); URINE BLOOD 3+ (Negative); URINE CLARITY CLEAR; URINE COLOR YELLOW; URINE GLUCOSE-RANDOM 2+ (Negative); URINE KETONES NEGATIVE (Negative); URINE LEUKOCYTES-REFLEX NEGATIVE (Negative); URINE NITRITE-REFLEX NEGATIVE (Negative); URINE PROTEIN TRACE (Negative); URINE SPECIFIC GRAVITY >= 1.030 (1.005-1.030); URINE UROBILINOGEN 0.2 E.U./dl (0.2-1.0)
[2020-02-08 12:41] LABS: SQUAMOUS 0-3 Few /LPF (0-3)
[2020-02-08 12:42] LABS: BACTERIA-REFLEX >30 Many /HPF (None Seen); MUCUS 4-6 Moderate strn/LPF (None Seen); URINE RBC >20 Many /HPF (0-2); URINE WBC-REFLEX 0-5 Rare /HPF (0-5)
[2020-02-08 12:43] LABS: CRYSTALS None Seen /LPF (None Seen); HYALINE CASTS 0-3 Few /LPF (None Seen)
[2020-02-09] VITALS (23 sets, daily range): BP systolic 104–137; BP diastolic 45–58
--- NOTE | 2020-02-09 04:13 | NUR ---
ASSUMED CARE AT 1910H, ON VENT AT 75% AND TOLERATED. PT SAT DECREASE TO 87-89% WHEN CHANGING POSITION OR SUCTIONING. STILL ON PRECEDEX MAX AND PROPOFOL 20MIC/KG/MIN. PROPOFOL STOP AT 0100H AND GIVEN ATIVAN IV AND FENTANYL IV THEN PT BECAME TACHYPNIC AT 0300H. PROPOFOL STARTED AGAIN. STILL ON CONTINUES TUBE FEEDING AT 50ML/HR. HIGHEST RESIDUAL WAS 200ML. STILL FEVERISH, TYLENOL Q4H AND SPONGE BATH GIVEN. PT SOMETIMES NODDING OR SHAKING HIS HEAD WHEN ASKED IF HE HAVE PAIN OR CAN HEAR ME. NO MOVEMENT OF EXTRIMITIES AND SLIGHTLY OPENS HIS SOMETIMES. SECREATION FROM ETT STILL PINKISK OR BLOOD STAINED. CONTINUE MONITORING AND TOWARD GOALS. KEPT IN COVID ISOLATION AND NO SEIZURE IN MY SHIFT.
[2020-02-09 06:22] LABS: HEMATOCRIT 29.4 % (42.0-52.0); HEMOGLOBIN 9.7 gm/dL (14.0-18.0); MCH 29.2 pg (26.0-34.0); MCHC 33.1 g/dL (28.0-37.0); MPV 9.5 fl. (7.2-11.1); RBC 3.34 mil/uL (4.50-6.00); RDW-CV 13.7 % (10.5-14.5); WBC 10.4 thou/uL (4.0-11.0)
[2020-02-09 06:37] LABS: ALBUMIN 1.5 g/dL (3.4-5.0); CALCIUM 7.9 mg/dL (8.5-10.1); CREATININE 1.9 mg/dL (0.6-1.3); MAGNESIUM 2.5 mg/dL (1.8-2.4); POTASSIUM 4.8 mmol/L (3.5-5.1); TOTAL BILIRUBIN 0.4 mg/dL (<0.1-1.0); TOTAL PROTEIN 5.7 g/dL (6.4-8.2)
--- NOTE | 2020-02-09 16:52 | NUR ---
PT REMAINS SEDATED ON VENT. DOES NOT TOLERATE BEING MOVED IN BED. SATS DROP AND TAKES TIME TO RECOVER. TUBE FEED HELD R/T RESIDUAL OF 120. RECHECK AT 1600 REMAINED AT 120. OPENS EYES TO VERBAL DIRECTION. DENIES PAIN. NOT PROGRESSING TOWARDS GOALS.
--- NOTE | 2020-02-09 21:56 | NUR ---
PT. FEBRILE AT 102.3. PT. IS NOTABLY MUCH LESS RESPONSIVE THAN PREVIOUS SHIFTS. TYLENOL GIVEN PER OG. TUBE FEEDING REMAINS ON HOLD WITH HIGH RESIDUALS. WILL CONTINUE TO MONITOR.
[2020-02-10] VITALS (27 sets, daily range): BP systolic 75–128; BP diastolic 36–56
--- NOTE | 2020-02-10 04:47 | NUR ---
PT. FIO2 DOWN TO 75%. PT. IS STILL ONLY RESPONSIVE TO NOXIOUS STIMULI. WOULD NOT OPEN EYES ON VERBAL COMMAND. FEBRILE. NO CHEST XRAY ORDERED THIS A.M. PRECEDEX AND PROPOFOL GTT'S REMAIN INFUSING. WILL CONTINUE TO MONITOR.
[2020-02-10 05:48] LABS: HEMOGLOBIN 9.4 gm/dL (14.0-18.0); MCH 29.5 pg (26.0-34.0); MCHC 33.5 g/dL (28.0-37.0); MCV 88.2 fL (80.0-100.0); MPV 9.8 fl. (7.2-11.1); RBC 3.17 mil/uL (4.50-6.00); WBC 12.6 thou/uL (4.0-11.0)
[2020-02-10 06:07] LABS: CALCIUM 7.6 mg/dL (8.5-10.1); CREATININE 1.8 mg/dL (0.6-1.3); MAGNESIUM 2.7 mg/dL (1.8-2.4); POTASSIUM 4.8 mmol/L (3.5-5.1)
[2020-02-10 08:11] LABS: PCO2 40.8 mmHg (35.0-45.0); pH 7.457 (7.340-7.450)
[2020-02-10 08:12] LABS: PO2 57.2 mmHg (75.0-100.0)
--- NOTE | 2020-02-10 10:42 | NUR ---
SW spoke with pt nurse for today, Anu, to check on pt status and provide CM update/available with any CM needs. Pt remains on vent and sedated.
--- NOTE | 2020-02-10 17:54 | NUR ---
PT REMAINS ON VENT AND SEDATED. PROPOFOL STOPPED. PT GRIMACES WITH PAINFUL STIMULI. TUBE FEEDING HELD AFTER RESIDUAL WAS HIGH. RESTATRED AT 1600 AT 10ML/H AFTER RESIDUAL OF 40. PRN ATIVAN AND ACETAMINOPHEN GIVEN FOR ANXIETY AND FEVER. CONTINUES TO DESAT WITH POSITION CHANGES. NO APPARENT PAIN. NOT PROGRESSING TOWARDS GOALS.
[2020-02-11] VITALS (26 sets, daily range): BP systolic 112–191; BP diastolic 43–70
[2020-02-11 04:24] LABS: HEMATOCRIT 25.3 % (42.0-52.0); HEMOGLOBIN 8.2 gm/dL (14.0-18.0); MCH 29.1 pg (26.0-34.0); MCHC 32.6 g/dL (28.0-37.0); MCV 89.3 fL (80.0-100.0); MPV 9.3 fl. (7.2-11.1); RBC 2.84 mil/uL (4.50-6.00); RDW-CV 14.2 % (10.5-14.5); WBC 14.3 thou/uL (4.0-11.0)
[2020-02-11 04:43] LABS: ALBUMIN 1.2 g/dL (3.4-5.0); CALCIUM 7.4 mg/dL (8.5-10.1); MAGNESIUM 2.8 mg/dL (1.8-2.4); POTASSIUM 4.7 mmol/L (3.5-5.1); TOTAL BILIRUBIN 0.7 mg/dL (<0.1-1.0); TOTAL PROTEIN 5.7 g/dL (6.4-8.2)
--- NOTE | 2020-02-11 06:21 | NUR ---
VSS. NS 500ML BOLUS GIVEN EARLY IN SHIFT DUE TO LOW BP, MAP 50-55. MAP HAS REMAINED >65 SINCE WITH NO FURTHER INTERVENTION. PTS O2 SAT LABILE WITH POSITION CHANGES AND SUCTIONING, DESATS TO 88-90% WITH TURNING AND REBOUNDS TO MID/HIGH 90'S SLOWLY OVER SEVERAL MINUTES. FOR THIS REASON PT WAS NOT BATHED LINEN CHANGE WOULD LIKELY BE DETRIMENTAL TO OXYGENATION. IMPROVEMENT IN TUBE FEED RESIDUALS, Q4 CHECKS WERE 100ML @2000, 120ML @0000, THEN 35ML @ 0400. TUBE FEED TITRATED EACH CHECK, CURRENTLY AT 40 ML/HR, GOAL IS 65ML/HR. PRECEDEX GTT TITRATED DOWN THROUGHOUT THE SHIFT, CURRENTLY AT 0.3 MCG/KG/HR. PT REMAINS MINIMALLY RESPONSIVE TO PAINFUL STIMULI, NO APPRECIABLE RESPONSE TO STERNAL RUB. POSITIVE BABINSKI REFLEX, POSITIVE CORNEAL REFLEX, POSITIVE COUGH REFLEX, NO GAG REFLEX BUT PT GRIMACES TO DEEP ORAL CARE. PT BEEN TURNED Q2HR THROUGHOUT THE SHIFT.
--- NOTE | 2020-02-11 09:29 | NUR ---
ICU rounds: Pt about the same. Still on vent, sedation off and not responding. being kept up to date on POC.
--- NOTE | 2020-02-11 19:22 | NUR ---
this mortgage underwriter assumed care of pt at 0700 pt appears less responsive corneal intact no gag reflex does grimace when suctioned grimace to sternal rub consult neuro per dr bennett. possible eeg done tomorrow. febrile during shift gave tylenol afebrile toward end of shift 98.0. covid collected and sent again per dr galindo d/c lopinavir. titrated fio2 done to 85% tolerated for 30mins then desat to 84% titrated back to 90 tube feeds have 0 residual increase to 65ml/hr which is goal
[2020-02-12] VITALS (67 sets, daily range): BP systolic 81–152; BP diastolic 27–62
[2020-02-12 04:15] LABS: HEMATOCRIT 26.1 % (42.0-52.0); HEMOGLOBIN 8.4 gm/dL (14.0-18.0); MCH 29.3 pg (26.0-34.0); MCHC 32.3 g/dL (28.0-37.0); MCV 90.7 fL (80.0-100.0); MPV 9.7 fl. (7.2-11.1); RBC 2.87 mil/uL (4.50-6.00); RDW-CV 14.8 % (10.5-14.5); WBC 14.8 thou/uL (4.0-11.0)
[2020-02-12 04:23] LABS: ALBUMIN 1.2 g/dL (3.4-5.0); CALCIUM 7.5 mg/dL (8.5-10.1); CREATININE 2.5 mg/dL (0.6-1.3); MAGNESIUM 3.1 mg/dL (1.8-2.4); POTASSIUM 5.6 mmol/L (3.5-5.1); TOTAL BILIRUBIN 0.7 mg/dL (<0.1-1.0)
--- NOTE | 2020-02-12 06:57 | NUR ---
PT. NOT PROGRESSING TOWARDS GOALS. REMAINS ON MINIMAL SEDATION WITH PRECEDEX AT SMALL DOSE. UNRESPONSIVE TO NAME, BUT DOES RESPOND TO PAINFUL STIMULI AND GRIMACES WITH ORAL CARE. NO RESTRAINTS. REMAINS ON COVID ISOLATION. WILL CONTINUE TO MONITOR.
[2020-02-12 09:14] LABS: URINE BILIRUBIN NEGATIVE (Negative); URINE BLOOD 3+ (Negative); URINE CLARITY CLEAR; URINE COLOR YELLOW; URINE GLUCOSE-RANDOM 1+ (Negative); URINE KETONES NEGATIVE (Negative); URINE LEUKOCYTES-REFLEX NEGATIVE (Negative); URINE NITRITE-REFLEX NEGATIVE (Negative); URINE PROTEIN 1+ (Negative); URINE SPECIFIC GRAVITY >= 1.030 (1.005-1.030)
[2020-02-12 09:21] LABS: URINE POTASSIUM-RANDOM 34.9 mmol/L
[2020-02-12 10:02] LABS: SQUAMOUS 0-3 Few /LPF (0-3); URINE RBC >20 Many /HPF (0-2); URINE WBC-REFLEX 0-5 Rare /HPF (0-5)
[2020-02-12 10:03] LABS: BACTERIA-REFLEX 1-9 Few /HPF (None Seen); COARSE GRANULAR CASTS 4-10 Moderate /LPF (None Seen); CRYSTALS None Seen /LPF (None Seen); FINE GRANULAR CASTS >10 Many /LPF (None Seen); MUCUS None Seen strn/LPF (None Seen)
[2020-02-12 10:20] LABS: BE -0.9 mmol/L (-2 to +3)
[2020-02-12 10:22] LABS: PCO2 70.6 mmHg (35.0-45.0); pH 7.213 (7.340-7.450)
[2020-02-12 10:23] LABS: PO2 59.6 mmHg (75.0-100.0)
[2020-02-12 14:34] LABS: HEMATOCRIT 22.5 % (42.0-52.0); HEMOGLOBIN 7.5 gm/dL (14.0-18.0); MCH 30.2 pg (26.0-34.0); MCHC 33.2 g/dL (28.0-37.0); MPV 9.6 fl. (7.2-11.1); NUCLEATED RBCS 0 /100WBC; PLATELET COUNT* 207 thou/uL (150-400); RBC 2.47 mil/uL (4.50-6.00); RDW-CV 14.7 % (10.5-14.5)
--- NOTE | 2020-02-12 14:55 | NUR ---
PER NURSING, COVID 19 TEST REPEATED 02/10. PT.FEBRILE 1-2 TIMES/DAY. CXR WITH SLIGHT IMPROVEMENT BUT SEDATION IS AT LOW LEVEL AND PT.NOT VERY RESPONSIVE TODAY. EEG PLANNED.
--- NOTE | 2020-02-12 15:08 | NUR ---
RIGHT BASILIC VESSEL ACCESSED FOR TRIPLE LUMEN PICC. LINE PRE-TRIMMED TO 44CM AND ADVANCED TO THE ZERO BRIDGER WITH NO RESISTANCE MET. UPPER ARM CIRCUMFERENCE ABOVE INSERTION SITE = 12 1/2". SHERLOCK MAGNET AND 3CG CONFIRMATION OF TIP TERMINATION AT THE CAVOATRIAL JUNCTION APPRECIATED. DR BIRD PRESENT DURING PROCEDURE. GUIDEWIRE REMOVED, LINE FLUSHED AND INSERTION SITE DRESSSED. REPORT GIVEN TO MEGHNA GARCIA.
[2020-02-12 15:30] LABS: ABSOLUTE LYMPHOCYTES 0.4 thou/uL (0.8-5.3); ABSOLUTE MONOCYTES 0.2 thou/uL (0.0-1.2); ABSOLUTE NEUTROPHILS 9.4 thou/uL (1.6-8.1); ANISOCYTOSIS 1+; PLATELET ESTIMATE ADEQUATE; POIKILOCYTOSIS Occasional
[2020-02-12 15:35] LABS: BE -1.4 mmol/L (-2 to +3); PO2 68.1 mmHg (75.0-100.0)
[2020-02-12 15:39] LABS: PCO2 68.5 mmHg (35.0-45.0); pH 7.214 (7.340-7.450)
[2020-02-12 16:52] LABS: CALCIUM 7.5 mg/dL (8.5-10.1)
[2020-02-12 17:03] LABS: CREATININE 3.5 mg/dL (0.6-1.3)
[2020-02-12 17:04] LABS: POTASSIUM 6.2 mmol/L (3.5-5.1)
--- NOTE | 2020-02-12 19:21 | NUR ---
PT UNSTABLE, VENT SETTINGS CHANGED A/C TO PT'S OXYGENATION PER DR BIRD. 1.5L NS BOLUS ADMINISTERED FOR HYPOTENSION, BP STABILISED. I UNIT OF PRBC TRANSFUSION STARTED. PICC LINE INSERTED BY INFUSION NURSE. EEG DONE TODAY. PT UNRESPONSIVE, GRIMACES A LITTLE TO PAIN. PRECEDEX TURNED OFF AT 1400. TOLERATING TUBE FEEDS, GLUCERNA 1.2 AT 65 MLS/HR. PT HAD A LARGE, LOOSE BM THIS SHIFT, STOOL SAMPLE SENT FOR C DIFF. Q2 TURNS FOR SKIN INTEGRITY. ENHANCED PRECAUTIONS MAINTAINED. UPDATED OVER THE PHONE.
[2020-02-12 22:01] LABS: HEMATOCRIT 25.7 % (42.0-52.0); HEMOGLOBIN 8.4 gm/dL (14.0-18.0)
[2020-02-13] VITALS (43 sets, daily range): BP systolic 106–144; BP diastolic 36–65
[2020-02-13 05:47] LABS: BE -2.1 mmol/L (-2 to +3); PO2 72.8 mmHg (75.0-100.0)
[2020-02-13 05:48] LABS: PCO2 53.1 mmHg (35.0-45.0)
[2020-02-13 05:58] LABS: ALBUMIN 1.2 g/dL (3.4-5.0); CALCIUM 7.9 mg/dL (8.5-10.1); MAGNESIUM 3.4 mg/dL (1.8-2.4); POTASSIUM 5.8 mmol/L (3.5-5.1); TOTAL BILIRUBIN 0.5 mg/dL (<0.1-1.0); TOTAL PROTEIN 5.8 g/dL (6.4-8.2)
[2020-02-13 06:00] LABS: CREATININE 4.5 mg/dL (0.6-1.3)
[2020-02-13 06:29] LABS: HEMATOCRIT 36.6 % (42.0-52.0); HEMOGLOBIN 11.9 gm/dL (14.0-18.0); MCHC 32.4 g/dL (28.0-37.0); MCV 89.5 fL (80.0-100.0); MPV 9.6 fl. (7.2-11.1); RBC 4.09 mil/uL (4.50-6.00); RDW-CV 15.8 % (10.5-14.5); WBC 7.3 thou/uL (4.0-11.0)
--- NOTE | 2020-02-13 07:33 | NUR ---
ASSESSMENTS CHARTED. PATIENT STILL NONRESPONSIVE ON VENTILATOR WITHOUT SEDATION. UNABLE TO GET PATIENT TO RESPONDE TO ANY STIMULI. TURNING Q2H FOR SKIN INTEGRITY. PATIENT'S WOUNDS ON SACRUM WORSENING. WOUND WAS FOUND TO NOW BE OPEN WITH BRIGHT RED TISSUE UNDERNEATH. PICTURE TAKEN AND DOCUMENTATION PLACED IN CHART. PATIENT TOLERATED BLOOD INFUSION WELL WITHOUT COMPLICATIONS. WAS ABLE TO TITRATE PATIENT DOWN TO 70% FIO2, TOLERATING WELL. TOLERATING TUBE FEEDING WELL AT GOAL. PATIENT WAS FEBRILE AGAIN THIS SHIFT. TMAX 101.6. TYLENOL ADMINISTERED PRIOR TO THIS TEMPERATURE READING, ENDED UP PLACING PATIENT ON ICE TO LOWER TEMPERATURE. MOST RECENT TEMP 97.3. NURSING STAFF KESHAWN
--- NOTE | 2020-02-13 12:00 | EEG ---
[address] [address] EEG STUDY REPORT Name: ANTOINETTE CHANDRA Room: [address] IN .R.#: [id number] Admission: 01/31/20 Attend Phys: Fernie Short, Discharge: Date of : 48 Report #: [id number] THIS REPORT FOR: //name// CC: Noe Short DATE OF SERVICE: 02/13/2020 This patient is being evaluated for unresponsiveness. EEG was done by placing the electrode by standard 10-20 system of electrode placement. Both referential and sequential montages were used for recording. The patient's EEG was very disorganized and poorly formed. It is disorganized and poorly formed in generalized fashion. Background activity is difficult to assess because it is low voltage, but appeared to be about at the most 4-5 volts and 10 microvolt. No active epileptiform activity was noticed. Photic stimulation was unremarkable. IMPRESSION: This is a severely abnormal EEG because it is very disorganized and poorly formed. It is low voltage and very slow. It is a nonspecific finding. The common cause for this is a generalized encephalopathy, but the patient was still on some sedation as I understand and sedation can cause generalized slowing, but typically not to that extent, especially because he is on small dose of sedation. Diffuse dysfunction of the brain because of any other etiologies can also cause similar picture. Unfortunately, this patient has not been able to have an imaging study done of the brain because he desaturates even when he is moved. The next step in the evaluation will be to get an imaging study of the brain, whenever Pulmonary and ID think it is reasonable to send him there. However, this EEG is severely abnormal and does not show any active epileptiform activity. Dr. Painter will be following up this patient with you from tomorrow and discussed with other consultants and family to see what the best course in this patient will be whose EEG appeared to be severely abnormal, although he is on some sedation. <ELECTRONICALLY SIGNED> By: Darren Mcgovern MD 02/13/20 1200 0901 [id number] Mcgovern MD /nt
--- NOTE | 2020-02-13 13:30 | NUR ---
Nutrition: Recommend changing TF formula to NEPRO @ GOAL RATE OF 50mL/hr d/t pt's renal FXN. See RD Reassessment Form for details.
--- NOTE | 2020-02-13 13:55 | NUR ---
Pt still with critical care needs. SW to remain available to assist with safe dc planning/case management.
--- NOTE | 2020-02-13 19:19 | NUR ---
VENT SUPPORT CONTD, SETTINGS UNCHANGED. PT UNRESPONSIVE TO STIMULI, NO SEDATION SINCE YESTERDAY, COUGHS AT TIMES. DIALYSIS CATH INSERTED AT LT IJ BY DR PLAZA. PLACEMENT CONFIRMED BY CXR. HEMODIALYSIS DONE, UF 500 MLS, TOLERATED WELL. VSS. TUBE FEEDINGS CHANGED TO NEPPRO 50 MLS/HR PER LIFE INSURANCE SALESPERSON. TOLERATING TUBE FEEDS. ONE BM THIS SHIFT. Q2 TURNS FOR SKIN INTEGRITY.
--- NOTE | 2020-02-13 22:57 | NUR ---
SPOKE WITH DR. CHAVEZ WITH NEUROLOGY ABOUT MEDICATION ORDER CLARIFICATION. PHYSICIAN HAD ORDERED AMANTADINE 50 MG, WHICH IS UNAVAILABLE. ONLY AVAILABLE FORM IS 100 MG CAPSULES, SO WE CANNOT GIVE THE CORRECT DOSE. AFTER SPEAKING WITH PHYSICIAN ABOUT THE ISSUE ORDERS RECEIVED TO GIVE 100 MG TONIGHT. EXACT ORDERS WERE "JUST GIVE ONE DOSE OF THAT TONIGHT AND WE'LL SEE WHAT HAPPENS". WILL CONTINUE TO MONITOR.
[2020-02-14] VITALS (47 sets, daily range): BP systolic 100–174; BP diastolic 41–76
[2020-02-14 06:47] LABS: MCHC 33.9 g/dL (28.0-37.0); MCV 88.5 fL (80.0-100.0); MPV 9.5 fl. (7.2-11.1); RBC 2.21 mil/uL (4.50-6.00); RDW-CV 14.5 % (10.5-14.5); WBC 10.6 thou/uL (4.0-11.0)
[2020-02-14 07:06] LABS: HEMATOCRIT 19.6 % (42.0-52.0); HEMOGLOBIN 6.6 gm/dL (14.0-18.0)
[2020-02-14 07:12] LABS: ALBUMIN 1.2 g/dL (3.4-5.0); CALCIUM 7.8 mg/dL (8.5-10.1); CREATININE 4.3 mg/dL (0.6-1.3); MAGNESIUM 2.9 mg/dL (1.8-2.4); POTASSIUM 5.2 mmol/L (3.5-5.1); TOTAL BILIRUBIN 0.4 mg/dL (<0.1-1.0); TOTAL PROTEIN 5.8 g/dL (6.4-8.2)
--- NOTE | 2020-02-14 07:24 | NUR ---
ASSESSMENTS CHARTED. PATIENT'S BLOOD GLUCOSE LEVELS IMPROVING. DID NOT HAVE TO GIVE MORNING DOSE OF INSULIN. H&H CAME BACK CRITICALLY LOW AT MORNING LAB DRAWS. PHYSICIAN NOTIFIED AND ORDERS WERE PLACED. PATIENT REMAINS UNRESPONSIVE WITHOUT SEDATION. STILL INTUBATED. REMAINS IN COVID PRECAUTIONS. URINE OUTPUT REMAINS LOW, URINE [place] COLORED WITH SEDIMENT. PATIENT WAS AT 100% FIO2 AT START OF SHIFT, TITRATED DOWN TO 70% AND TOLERATING WELL. TUBE FEEDING RUNNING AT GOAL, TOLERATING WELL. NURSING STAFF KESHAWN
[2020-02-14 08:57] LABS: HEMATOCRIT 24.8 % (42.0-52.0); HEMOGLOBIN 8.3 gm/dL (14.0-18.0); MCH 29.9 pg (26.0-34.0); MCHC 33.6 g/dL (28.0-37.0); MPV 8.8 fl. (7.2-11.1); RBC 2.79 mil/uL (4.50-6.00); RDW-CV 14.6 % (10.5-14.5); WBC 9.6 thou/uL (4.0-11.0)
--- NOTE | 2020-02-14 09:07 | CON ---
[address] [address] CONSULTATION Name: ANTOINETTE CHANDRA Room: [address] IN M.R.#: [id number] Admission: 01/31/20 Attend Phys: Fernie Short, Discharge: Date of : 48 Report #: [id number] THIS REPORT FOR: //name// cc: Noe Chatman MD, David L. MD ~ THIS REPORT FOR: //name// CC: Noe Short DATE OF SERVICE: 02/13/2020 VASCULAR SURGERY CONSULTATION REQUESTING PHYSICIAN: Dr. Rivera, Critical Care. REASON FOR CONSULTATION: Need for emergent dialysis access. HISTORY OF PRESENT ILLNESS: The patient is critically-ill 69-year-old white male who has been diagnosed with COVID-19 pneumonia. He is currently in isolation. He will require emergent dialysis at least for the short term. I have been asked to place a temporary catheter at the bedside. He is intubated and sedated. Remainder of history is obtained from the chart. REVIEW OF SYSTEMS: A 12-point review of systems is unobtainable. PAST MEDICAL HISTORY: Significant for coronary artery disease, hypothyroidism, hypertension, chronic kidney disease. PAST SURGICAL HISTORY: Significant for tonsillectomy and lymph node biopsy. FAMILY HISTORY: Significant for esophageal cancer and coronary artery disease. SOCIAL HISTORY: Denies alcohol, tobacco or drug use. MEDICATIONS AT HOME: Included Aldactone, Coreg, Synthroid, Effient, furosemide, Norvasc, Lipitor, ProAir HFA, Z-RUBI, aspirin, TriCor, Nitrostat and Cozaar. For inpatient medications, please see chart. ALLERGIES: MOBIC, PENICILLIN, SULFA. PHYSICAL EXAMINATION: GENERAL: The patient is intubated and sedated. VITAL SIGNS: Stable. The patient is afebrile. HEENT: Normocephalic[place] [address] CONSULTATION Name: ANTOINETTE CHANDRA Karol Room: [address]#: [id number] Admission: 01/31/20 Attend Phys: Fernie Short, Discharge: Date of : 48 Report #: [id number] NECK: Supple. CHEST: Equal bilaterally. HEART: Regular. ABDOMEN: Soft, nontender, nondistended. EXTREMITIES: Warm and well perfused. NEUROLOGIC: Exam is unable to perform due to the patient's status. ASSESSMENT: Need of urgent dialysis. PLAN: We will place temporary dialysis catheter at the bedside, plan for an IJ access. <ELECTRONICALLY SIGNED> By: Simba Fitzgerald DO 02/14/20 0907 1104 [id number] Todd MD /nt
--- NOTE | 2020-02-14 09:07 | OP ---
[address] [address] OPERATIVE REPORT Name: ANTOINETTE CHANDRA Room: [address] IN .R.#: [id number] Admission: 01/31/20 Attend Phys: Fernie Short, Discharge: Date of : 48 Report #: [id number] THIS REPORT FOR: //name// cc: Noe Chatman MD, David L. MD ~ THIS REPORT FOR: //name// CC: Noe Short DATE OF SERVICE: 02/13/2020 PREOPERATIVE DIAGNOSES: 1. Sepsis secondary to COVID-19 infection. 2. Acute renal failure, in need of dialysis. POSTOPERATIVE DIAGNOSES: 1. Sepsis secondary to COVID-19 infection. 2. Acute renal failure, in need of dialysis. PROCEDURES: 1. Ultrasound guidance for venous access, left internal jugular vein with image saved. 2. Left internal jugular temporary dialysis catheter placement with 3 ports. SURGEON: Cheo Todd MD. COURTESY BUS DRIVER: None. ANESTHESIA: Local. The patient is intubated and sedated. COMPLICATIONS: None. ESTIMATED BLOOD LOSS: Minimal. INDICATIONS FOR PROCEDURE: The patient is a very sick 69-year-old white male with COVID-19 pneumonia. He is on isolation. He is intubated and sedated. He is in acute renal failure, needs dialysis. I have been asked to place a temporary dialysis catheter. His internal jugular veins were interrogated with ultrasound. The left internal jugular vein was patent and large. I prepped and draped the left neck. Under ultrasound guidance with an image saved, I cannulated the left internal jugular vein without difficulty. I used Seldinger technique to exchange out for sequential dilators and then the catheter. I secured the catheter in place using a 2-0 silk suture[place] [address] OPERATIVE REPORT Name: ANTOINETTE CHANDRA Room: [address] IN [facility]#: [id number] Admission: 01/31/20 Attend Phys: Fernie Short, Discharge: Date of : 48 Report #: [id number] without difficulty. Both ports were packed with 1000 unit per mL heparin. Portable chest x-ray is pending at this time. <ELECTRONICALLY SIGNED> By: Simba Fitzgerald DO 02/14/20 0907 1106 1139Cheo Todd MD /tomasa
--- NOTE | 2020-02-14 09:31 | NUR ---
rechecked H&H level per dr bennett hgb 8.3 and hct 24 no blood needed at this time dr connor and lab aware
[2020-02-14 16:07] LABS: COMPLEMENT-C4 29 mg/dL (14-44); IgA 345 mg/dL (61-437); IgG 895 mg/dL (700-1600); IgM 128 mg/dL (20-172)
[2020-02-15] VITALS (79 sets, daily range): BP systolic 87–161; BP diastolic 30–71
--- NOTE | 2020-02-15 01:20 | NUR ---
RECEIVED REPORT AND ASSUMED CARE AT 1900.VSS. ICU MONITORING IN PLACE. ASSESSMENT COMPLETED CHARTED. BED LOCKED IN LOWEST POSITION, BED ALARM ON.
[2020-02-15 04:43] LABS: BE -1.3 mmol/L (-2 to +3); PCO2 47.1 mmHg (35.0-45.0); PO2 91.3 mmHg (75.0-100.0); pH 7.338 (7.340-7.450)
[2020-02-15 05:30] LABS: HEMATOCRIT 26.8 % (42.0-52.0); MCH 29.7 pg (26.0-34.0); MCHC 33.7 g/dL (28.0-37.0); MCV 88.3 fL (80.0-100.0); MPV 9.3 fl. (7.2-11.1); RBC 3.04 mil/uL (4.50-6.00); RDW-CV 13.9 % (10.5-14.5); WBC 8.2 thou/uL (4.0-11.0)
[2020-02-15 05:38] LABS: ALBUMIN 1.3 g/dL (3.4-5.0); CALCIUM 8.1 mg/dL (8.5-10.1); CREATININE 3.8 mg/dL (0.6-1.3); MAGNESIUM 2.7 mg/dL (1.8-2.4); POTASSIUM 4.9 mmol/L (3.5-5.1); TOTAL BILIRUBIN 0.4 mg/dL (<0.1-1.0); TOTAL PROTEIN 5.8 g/dL (6.4-8.2)
--- NOTE | 2020-02-15 10:24 | CON ---
[address] [address] CONSULTATION Name: ANTOINETTE CHANDRA Room: [address] IN M.R.#: [id number] Admission: 01/31/20 Attend Phys: Fernie Short, Discharge: Date of : 48 Report #: [id number] THIS REPORT FOR: //name// cc: Noe Chatman MD, David L. MD ~ THIS REPORT FOR: //name// CC: Noe Short NEPHROLOGY CONSULTATION HISTORY OF PRESENT ILLNESS: The patient is being seen by us for acute kidney injury related to COVID-19. He was dialyzed yesterday, tolerated the treatment well. He remains on the ventilator and is on 60% FIO2. OBJECTIVE: VITAL SIGNS: Reviewed, in no apparent distress, on ventilator, orally intubated, 65% FiO2. His urine output was 200 mL overnight. LUNGS: Show quiet respirations. EXTREMITIES: Show no peripheral edema. LABORATORY DATA: His labs reviewed. His potassium is elevated at 5.2. ASSESSMENT: 1. Acute kidney injury on top of chronic kidney disease, baseline creatinine 1.4-1.7. His acute kidney injury is in the setting of hypotension, ischemic acute tubular necrosis. Given that his potassium is elevated and he has not put out much urine, we will go ahead and dialyze him today, so run for 2.5 hours on a 2 K bath with goal to take 2 liters of fluid off as tolerated. 2. Hyperkalemia as above. 3. Acute respiratory failure, bilateral pneumonia secondary to COVID-19 infection, following with Pulmonary, on mechanical ventilation. 4. Hypermagnesemia. 5. Diarrhea with enteral feedings. 6. Low TSH. 7. History of coronary artery disease. 8. Hypoalbuminemia. PLAN: At this time is dialysis today. We will check labs again tomorrow and make further recommendations at that time. Second plan will be for me to contact to help best one available to get the ability to document my notes on your system. <ELECTRONICALLY SIGNED> By: Elliot Sheth MD 02/15/20 1024 [id number] [id number] Sheth MD /nt
[2020-02-16] VITALS (80 sets, daily range): BP systolic 114–160; BP diastolic 43–61
[2020-02-16 02:09] LABS: HEPATITIS B SURFACE AG Negative (Negative)
[2020-02-16 05:24] LABS: HEMATOCRIT 25.6 % (42.0-52.0); HEMOGLOBIN 8.6 gm/dL (14.0-18.0); MCH 29.7 pg (26.0-34.0); MCHC 33.5 g/dL (28.0-37.0); MCV 88.5 fL (80.0-100.0); MPV 9.6 fl. (7.2-11.1); RBC 2.9 mil/uL (4.50-6.00); RDW-CV 13.8 % (10.5-14.5); WBC 8.2 thou/uL (4.0-11.0)
[2020-02-16 05:46] LABS: ALBUMIN 1.3 g/dL (3.4-5.0); CALCIUM 8.7 mg/dL (8.5-10.1); CREATININE 3.9 mg/dL (0.6-1.3); MAGNESIUM 2.7 mg/dL (1.8-2.4); POTASSIUM 4.9 mmol/L (3.5-5.1); TOTAL BILIRUBIN 0.3 mg/dL (<0.1-1.0); TOTAL PROTEIN 5.9 g/dL (6.4-8.2)
--- NOTE | 2020-02-16 07:50 | NUR ---
ASSESSMENTS CHARTED. PATIENT REMAINS ON VENTILATOR WITH MILD SEDATION. NO RESPONSES FROM PATIENT THIS SHIFT. PATIENT REMAINS AFEBRILE. TUBE FEEDING INFUSING AT GOAL, TOLERATING WELL. PATIENT SHOWING LITTLE PROGRESS TOWARD GOALS THIS SHIFT.
[2020-02-16 10:07] LABS: KAPPA FREE LIGHT CHAINS 157.9 mg/L (3.3-19.4); LAMBDA FREE LIGHT CHAINS 138.1 mg/L (5.7-26.3)
--- NOTE | 2020-02-16 11:12 | CON ---
[address] [address] CONSULTATION Name: ANTOINETTE CHANDRA Room: [address] IN ..#: [id number] Admission: 01/31/20 Attend Phys: Fernie Short, Discharge: Date of : 48 Report #: [id number] THIS REPORT FOR: //name// cc: Noe Chatman MD, David L. MD ~ THIS REPORT FOR: //name// CC: Noe Short DATE OF SERVICE: 02/12/2020 REQUESTING PHYSICIAN: Wesley Preciado MD REASON FOR CONSULTATION: Acute kidney injury. HISTORY OF PRESENT ILLNESS: The patient is a 69-year-old gentleman admitted to the hospital on 01/31/2020 with chief complaints of shortness of breath. The patient eventually went into the respiratory distress, had to be intubated, and was diagnosed with COVID-19 infection. PAST MEDICAL HISTORY: Significant for chronic kidney disease stage 3, history of coronary artery disease, hypertension, hyperlipidemia and hypothyroidism. SOCIAL HISTORY: No tobacco or alcohol abuse. FAMILY HISTORY: Positive for coronary artery disease and esophageal cancer in parents. REVIEW OF SYSTEMS: Unobtainable due to him being intubated. PHYSICAL EXAMINATION: GENERAL: He is in Intensive Care Unit, intubated. He is receiving antibiotics and tube feeding. He is not on any pressors. LUNGS: With coarse breath sounds. CARDIOVASCULAR: No pericardial rub. ABDOMEN: Soft. LABORATORY DATA: Hemoglobin 8.2, white count 14.8 thousand. Serum sodium 145, potassium 5.6, chloride 111, carbon dioxide 28, BUN 79, creatinine 2.5. ASSESSMENT: 1. Acute kidney injury on top of the chronic kidney disease. 2. Acute kidney injury is due to effect of the coronavirus system, but the patient is nonoliguric, which is of course better than when oliguric. The patient developed also hyperkalemia, [place] [address] CONSULTATION Name: ANTOINETTE CHANDRA Karol Room: [address] IN [facility].#: [id number] Admission: 01/31/20 Attend Phys: Fernie Short, Discharge: Date of : 48 Report #: [id number] 3. COVID-19 infection with systemic organ damage including lungs, now kidneys. 4. Coronary artery disease. 5. History of hypertension. PLAN: 1. The patient is receiving adequate amount of fluids. He will be maintained euvolemic. 2. We will give him patiromer for hyperkalemia. 3. Monitor his vancomycin level. 4. We will monitor renal function and if he continues to deteriorate, I will discuss with the family whether or not they want to pursue with hemodialysis. I discussed this case with Dr. Preciado. Thank you very much. <ELECTRONICALLY SIGNED> By: Cortez Gil MD 02/16/20 1112 1118 [id number] nitish Steinberg
--- NOTE | 2020-02-16 15:05 | NUR ---
ICU ROUNDING: CM SPOKE TO THE RN IN-CHARGE OF THE PT TO DISCUSS PT'S CURRENT STATUS AND TO DISCUSS ANY ISSUES OR CONCERNS THAT CM MAY BE ABLE TO ASSIST WITH. RN IN-CHARGE OF THE PT INFORMS THAT THE PT HAD BEEN 'RE-TESTED FOR COVID-19 PT HAD ONLTMADE MINIMAL IMPROVENT'. PT TO HAVE DIALYSIS TODAY. NO OTHER CONCERNS NOTED. CM WILL REMAIN AVAILABLE TO ASSIST AND FOLLOW NEEDED.
[2020-02-16 16:07] LABS: ANA INTERPRETATION Negative (())
--- NOTE | 2020-02-16 18:22 | NUR ---
PT HAD DIALYSIS TODAY WITH 2L REMOVED PER DIALYSIS NURSE. PT REMAINS ON VENT AND SEDATED. PT GRIMACED WHEN COVID SWAB WAS INSERTED INTO HIS NOSE. DOES NOT OPEN HIS EYES.
[2020-02-17] VITALS (22 sets, daily range): BP systolic 115–161; BP diastolic 42–64
[2020-02-17 03:37] LABS: BE 2.4 mmol/L (-2 to +3); PCO2 49.9 mmHg (35.0-45.0); PO2 103.6 mmHg (75.0-100.0); pH 7.368 (7.340-7.450)
[2020-02-17 05:43] LABS: HEMATOCRIT 24.5 % (42.0-52.0); HEMOGLOBIN 8.3 gm/dL (14.0-18.0); MCH 29.7 pg (26.0-34.0); MCHC 33.8 g/dL (28.0-37.0); RBC 2.78 mil/uL (4.50-6.00); RDW-CV 13.7 % (10.5-14.5); WBC 9.2 thou/uL (4.0-11.0)
--- NOTE | 2020-02-17 05:54 | NUR ---
VITALS STABLE, TEMP MAX 99.7F. NO PURPOSEFUL MOVEMENT, REMAINS UNRESTRAINED. BMX1, LARGE AND LIQUID. UOP 350CC. RECEIVED COMPLETE BED BATH. DESATS WHEN TURNED. OTHERWISE UNEVENTFUL NIGHT. Q2 TURNS FOR SKIN INTEGRITY.
[2020-02-17 06:00] LABS: ALBUMIN 1.4 g/dL (3.4-5.0); CALCIUM 8.8 mg/dL (8.5-10.1); MAGNESIUM 2.4 mg/dL (1.8-2.4); POTASSIUM 4.8 mmol/L (3.5-5.1); TOTAL BILIRUBIN 0.2 mg/dL (<0.1-1.0); TOTAL PROTEIN 5.9 g/dL (6.4-8.2)
[2020-02-17 06:22] LABS: CREATININE 2.7 mg/dL (0.6-1.3)
--- NOTE | 2020-02-17 16:25 | NUR ---
WOUND NURSE: PATIENT STABLE ENOUGH TO POSITION OFF SACRAL DEEP TISSUE INJURY SO IT CAN BE ASSESSED. PRESENTS A 10 X 7 CM LESION, NONBLANCHEABLE REDDISH PURPLE IN COLOR; SMALL RUPTURED BLISTERED AREA PRESENT. UNDERLYING TISSUE IS NOT BOGGY. MINIMAL SANGUINOUS DRAINGE NOTED. CLEANSED WITH SOAP AND WATER, RINSED WITH WATER, THEN PATTED DRY. APPLIED OPTIFOAM GENTLE AG TO WOUND, THEN PATIENT POSITIONED ONTO HIS RIGHT SIDE. PATIENT IS NOT TEACHEABLE. PATIENT ON A LOW AIRLOSS MATTRESS.
--- NOTE | 2020-02-17 16:33 | NUR ---
ICU ROUNDS: CM SPOKE TO THE RN IN-CHARGE OF THE PT TO DISCUSS THE PT'S CURRENT STATUS AND TO DISCUSS ANY ISSUES AND CONCERNS THAT CM MAY BE ABLE TO ASSIST WITH. RN INFORMS THAT THERE ARE NO ISSUES OR CONCERNS AT THIS TIME. CM WILL REMAIN AVAILABLE TO ASSIST AND FOLLOW NEEDED.
[2020-02-18] VITALS (32 sets, daily range): BP systolic 127–169; BP diastolic 50–73
--- NOTE | 2020-02-18 05:19 | NUR ---
NO ACUTE CHANGES OVERNIGHT. WILL CONTINUE MONITORING.
[2020-02-18 05:29] LABS: HEMATOCRIT 24.1 % (42.0-52.0); HEMOGLOBIN 8.1 gm/dL (14.0-18.0); MCH 29.6 pg (26.0-34.0); MCHC 33.7 g/dL (28.0-37.0); MCV 87.9 fL (80.0-100.0); MPV 9.4 fl. (7.2-11.1); RBC 2.74 mil/uL (4.50-6.00); RDW-CV 13.6 % (10.5-14.5); WBC 9.7 thou/uL (4.0-11.0)
[2020-02-18 05:37] LABS: ALBUMIN 1.4 g/dL (3.4-5.0); CALCIUM 8.8 mg/dL (8.5-10.1); CREATININE 2.7 mg/dL (0.6-1.3); MAGNESIUM 2.2 mg/dL (1.8-2.4); POTASSIUM 4.6 mmol/L (3.5-5.1); TOTAL BILIRUBIN 0.3 mg/dL (<0.1-1.0); TOTAL PROTEIN 5.9 g/dL (6.4-8.2)
[2020-02-18 09:07] LABS: GLOMERULR BASEM MEMBRN AB 3 units (0-20)
--- NOTE | 2020-02-18 17:50 | NUR ---
PT ASSESSMENT CHARTED. VSS THROUGHOUT SHIFT. SR/SB ON THE MONITOR. DIALYSIS IS FINISHING UP NOW WITH 2L TAKEN OFF AGAIN. PRECEDEX RUNNING AT 0.4 WITH MINIMAL CHANGE IN ALERTNESS. PT DOES GRIMACE TO PAIN AND BITES DOWN ON HIS TUBE WITH ORAL CARES. UPDATED.
[2020-02-19] VITALS (34 sets, daily range): BP systolic 118–167; BP diastolic 53–71
--- NOTE | 2020-02-19 05:54 | NUR ---
VITALS STABLE, AFEBRILE. FIO2 DOWN TO 55% WITH SPO2 IN LOWER 90s. OTHERWISE UNEVENTFUL NIGHT. BMX1, LARGE AND LIQUID. FECAL MANAGEMENT SYSTEM PLACED. Q2 TURNS FOR SKIN INTEGRITY. WILL CONTINUE MONITORING.
[2020-02-19 06:52] LABS: ALBUMIN 1.5 g/dL (3.4-5.0); CALCIUM 8.2 mg/dL (8.5-10.1); PHOSPHORUS* 4.7 mg/dL (2.5-4.9); POTASSIUM 4.4 mmol/L (3.5-5.1)
[2020-02-19 08:46] LABS: % SATURATION 8 % (20-39); IRON 21 ug/dL (50-175)
--- NOTE | 2020-02-19 18:03 | NUR ---
PT OPENS EYES SPONTANEOUSLY. PRECEDAX INFUSING. TUBE FEED AT GOAL RATE OF 50. FREE H2O 200 ML GIVEN Q4H. OSORIO TO DD. RECTAL TUBE IN PLACE. NO S/S OF PAIN. SLOW TO PROGRESS TOWARDS GOALS.
[2020-02-20] VITALS (51 sets, daily range): BP systolic 109–177; BP diastolic 52–81
--- NOTE | 2020-02-20 05:42 | NUR ---
VITALS STABLE, AFEBRILE. PT ABLE TO OPEN EYES SPONTANEOUSLY, SHAKES HEAD/NODS TO YES/NO QUESTIONS. DENIES PAIN. UNABLE TO TRACK WITH EYES. STILL DESATS WITH TURNS/SUCTIONINGS. OTHERWISE UNEVENTFUL NIGHT. 700 CC UOP. RECEIVED COMPLETE BATH/HAIR SHAMPOO. Q2 TURNS FOR SKIN INTEGRITY.
[2020-02-20 05:46] LABS: CALCIUM 8.5 mg/dL (8.5-10.1); MAGNESIUM 1.6 mg/dL (1.8-2.4); POTASSIUM 4.8 mmol/L (3.5-5.1)
--- NOTE | 2020-02-20 12:23 | NUR ---
SPOKE WITH PT.S RN. SHE SAID HE WAS DOING SOME BETTER TODAY. OPENS EYES SPONTANEOUSLY AND WILL NOD HIS HEAD YES/NO TO QUESTIONS. REMAINS ON VENT. LEFT VM FOR PTS ,MYNOR, TO UPDATE HER ON HER . LEFT CM NUMBER AND ICU NUMBER IF SHE WANTED TO CALL BACK.
--- NOTE | 2020-02-20 13:21 | NUR ---
Sedated on precidex, is weak and unable to move extremities but does withdraw to pain. Eyes open to voice or touch and shakes head y/n to simple questions. Denies pain. Blood pressure and heart rate stable. Was on 45% FIO2 and Dr. Quintana attempted to wean to 40% but O2 sat dropped to 89, I put back on 45% and informed her. She spoke to renal doctor and feels after dialysis, perhaps tomorrow they can start to wean. Renal doctor here and decreased amount of tube feeding flushes from 200 ml Q4 hours to 100ml Q 4 hours and plans to try to take 3 Liters off with hemodialysis today if b/p will tolerate. Moderate amount of liquid stool per rectal tube, no leaking. Colace held d/t diarrhea. Turned q2 hours to prevent further breakdown of coccxy/sacral area, wedges used. Safe, no injuries.
--- NOTE | 2020-02-20 18:02 | NUR ---
PT OPENS EYES SPONTANEOUSLY. SHAKES HEAD YES/NO TO QUESTIONS. OSORIO TO DD. FECAL MANAGEMENT SYSTEM IN PLACE WITH THIN BROWN STOOL. PECEDEX INFUSING. DIALYSIS THIS AFTERNOON. DENIES PAIN. SLOW TO PROGRESS TOWARDS GOALS.
[2020-02-21] VITALS (31 sets, daily range): BP systolic 95–163; BP diastolic 26–74
[2020-02-21 04:20] LABS: ALBUMIN 1.6 g/dL (3.4-5.0); CALCIUM 8.2 mg/dL (8.5-10.1); CREATININE 1.5 mg/dL (0.6-1.3); CREATININE 1.6 mg/dL (0.6-1.3); MAGNESIUM 1.7 mg/dL (1.8-2.4); POTASSIUM 4.5 mmol/L (3.5-5.1); POTASSIUM 4.6 mmol/L (3.5-5.1)
--- NOTE | 2020-02-21 07:36 | NUR ---
ASSESSMENTS CHARTED. PATIENT REMAINS AFEBRILE. WILL OPEN EYES AND ANSWER YES AND NO QUESTIONS. DOES NOT FOLLOW COMMANDS. PRECEDEX STILL INFUSING AT 0.4. REMAINS INTUBATED AND SEDATED. DIALYSIS FINISHED DURING THIS SHIFT. 3000 ML REMOVED. PATIENT SLOWLY PROGRESSING TOWARD GOALS. NO SIGNIFICANT EVENTS THIS SHIFT. WCTM
[2020-02-22] VITALS (24 sets, daily range): BP systolic 127–186; BP diastolic 32–75
[2020-02-22 04:45] LABS: HEMATOCRIT 23.7 % (42.0-52.0); HEMOGLOBIN 7.9 gm/dL (14.0-18.0); MCH 29.4 pg (26.0-34.0); MCHC 33.5 g/dL (28.0-37.0); MCV 87.8 fL (80.0-100.0); MPV 8.9 fl. (7.2-11.1); RBC 2.69 mil/uL (4.50-6.00); RDW-CV 13.8 % (10.5-14.5); WBC 7.9 thou/uL (4.0-11.0)
[2020-02-22 05:04] LABS: ALBUMIN 1.6 g/dL (3.4-5.0); CALCIUM 8.4 mg/dL (8.5-10.1); CREATININE 1.7 mg/dL (0.6-1.3); MAGNESIUM 1.7 mg/dL (1.8-2.4); POTASSIUM 4.8 mmol/L (3.5-5.1); TOTAL BILIRUBIN 0.2 mg/dL (<0.1-1.0); TOTAL PROTEIN 6.2 g/dL (6.4-8.2)
--- NOTE | 2020-02-22 06:43 | NUR ---
ASSESSMENTS CHARTED. PATIENT REMAINS INTUBATED ON VENTILATOR ON MINIMAL SEDATION. PATIENT IS EASY TO AROUSE AND TRACKS MOVEMENTS. WILL FOLLOW COMMANDS INTERMITTENTLY. ABLE TO ANSWER YES AND NO QUESTIONS. PATIENT HAS LITTLE TO NO STRENGTH IN ANY EXTREMETIES. REMAINS AFEBRILE. TOLERATING TUBE FEEDING WELL. OPTIFOAM DRESSING INTACT ON COCCYX. NO SIGNIFICANT EVENTS THIS SHIFT. WCTM
--- NOTE | 2020-02-22 18:44 | NUR ---
PATIENT PROGRESSING TOWARDS GOALS. ABLE TO FOLLOW COMMANDS. ON LOW DOSE PRECEDEX AND TOLERATING WELL. VEAK WEAK BUT CAN WIGGLE TOES AND FINGERS. SUGARS REMAIN STABLE THROUGHOUT SHIFT. TOLERATING TUBE FEED AND WATER BOLUES. CALLED AND UDPATED ON PLAN OF CARE AND PROGRESS. SPOKE WITH FRED WITH SURGERY, NOT ABLE TO TRACH UNTIL 2 NEGATIVE COVID TESTS. REPORTED TO DR SALDANA, WILL REGROUP TOMORROW ON PLAN. PEEP DECREASED TO 6 TODAY AND TOLERATED WELL. NO PAIN, NAUSEA OR SHORTNESS OF AIR. WOUND DSG CHANGED AND PICTURE TAKEN TODAY. Q2H TURNS. BED IN LOWEST POSITION, CALL LIGHT IN REACH, PRODUCTION FINISHER IN PLACE.
[2020-02-23] VITALS (28 sets, daily range): BP systolic 132–167; BP diastolic 41–71
[2020-02-23 04:30] LABS: BE 4.9 mmol/L (-2 to +3); PCO2 44.2 mmHg (35.0-45.0); PO2 69.2 mmHg (75.0-100.0); pH 7.442 (7.340-7.450)
[2020-02-23 06:29] LABS: HEMATOCRIT 22.5 % (42.0-52.0); HEMOGLOBIN 7.6 gm/dL (14.0-18.0); MCH 29.6 pg (26.0-34.0); MCHC 33.6 g/dL (28.0-37.0); MPV 8.3 fl. (7.2-11.1); RBC 2.55 mil/uL (4.50-6.00); RDW-CV 14.2 % (10.5-14.5); WBC 8.4 thou/uL (4.0-11.0)
[2020-02-23 06:57] LABS: ALBUMIN 1.6 g/dL (3.4-5.0); CALCIUM 8.2 mg/dL (8.5-10.1); CREATININE 1.6 mg/dL (0.6-1.3); MAGNESIUM 1.5 mg/dL (1.8-2.4); POTASSIUM 4.8 mmol/L (3.5-5.1); TOTAL BILIRUBIN 0.3 mg/dL (<0.1-1.0); TOTAL PROTEIN 6.1 g/dL (6.4-8.2)
--- NOTE | 2020-02-23 12:21 | NUR ---
ASSUMED CARE OF PT. AT 0700. RT STARTED WEANING TRIAL- PS INITIALLY 20, DROPPING BY 2 EVERY 30' TOLERATED. CURRENTLY TOLERATING WELL, RR 19-22, SAT 95-97%, TV'S 550-750. PT. ABLE TO NOD YES AND NO TO QUESTIONS. DENIES PAIN. STRENGTH VERY WEAK OVERALL. ABLE TO WIGGLE TOES. PRECEDEX AT 0.2MCG/KG/MN
[2020-02-23 13:34] LABS: PCO2 45.2 mmHg (35.0-45.0); PO2 72.3 mmHg (75.0-100.0); pH 7.435 (7.340-7.450)
--- NOTE | 2020-02-23 18:44 | NUR ---
RT PLACED PT. BACK ON PREVIOUS VENT SETTINGS:AC, RATE 12, TV 480, PEEP 5, FIO2 40%. PT. TOLERATED WEANING TRIAL ON PS PEEP 5 WELL TODAY. FECAL TUBE IN PLACE AND HAS LEAKED AROUND THIS TWICE TODAY-LIQUID LIGHT BROWN STOOL. ADDED WATER THIS AM TO TUBE BUT STILL LEAKED AFTER THAT. PT. CONTINUES TO DENY PAIN. REMAINS VERY WEAK, UNABLE TO HOLD HEAD UP OFF PILLOW. HAS VERY SLIGHT WEAK MAGNETIC PROSPECTING OPERATOR BUT DOES FOLLOW COMMANDS. APPEARS COMFORTABLE.
[2020-02-24] VITALS (26 sets, daily range): BP systolic 114–164; BP diastolic 33–69
[2020-02-24 03:23] LABS: BE 6.1 mmol/L (-2 to +3); PCO2 45.7 mmHg (35.0-45.0); PO2 87.1 mmHg (75.0-100.0); pH 7.447 (7.340-7.450)
[2020-02-24 04:41] LABS: HEMATOCRIT 20.7 % (42.0-52.0); MCH 29.8 pg (26.0-34.0); MCHC 33.9 g/dL (28.0-37.0); MCV 87.7 fL (80.0-100.0); RBC 2.35 mil/uL (4.50-6.00); RDW-CV 13.7 % (10.5-14.5); WBC 7.1 thou/uL (4.0-11.0)
[2020-02-24 04:57] LABS: ALBUMIN 1.5 g/dL (3.4-5.0); CALCIUM 8.3 mg/dL (8.5-10.1); CREATININE 1.6 mg/dL (0.6-1.3); MAGNESIUM 1.7 mg/dL (1.8-2.4); POTASSIUM 4.7 mmol/L (3.5-5.1); TOTAL BILIRUBIN 0.2 mg/dL (<0.1-1.0); TOTAL PROTEIN 5.9 g/dL (6.4-8.2)
--- NOTE | 2020-02-24 10:58 | NUR ---
ICU rounds: Planned weaning trial. IVABX restarted. Transfusion planned. Intubated but improving
[2020-02-24 13:55] LABS: URINE BILIRUBIN NEGATIVE (Negative); URINE BLOOD 1+ (Negative); URINE CLARITY SL CLOUDY; URINE COLOR YELLOW; URINE GLUCOSE-RANDOM NEGATIVE (Negative); URINE KETONES NEGATIVE (Negative); URINE LEUKOCYTES-REFLEX NEGATIVE (Negative); URINE NITRITE-REFLEX NEGATIVE (Negative); URINE PROTEIN NEGATIVE (Negative); URINE UROBILINOGEN 0.2 E.U./dl (0.2-1.0)
[2020-02-24 14:11] LABS: BACTERIA-REFLEX 1-9 Few /HPF (None Seen); CASTS None Seen /LPF (None Seen); MUCUS 0-3 Light strn/LPF (None Seen); SQUAMOUS 0-3 Few /LPF (0-3); URINE RBC 3-10 Few /HPF (0-2); URINE WBC-REFLEX 0-5 Rare /HPF (0-5)
[2020-02-24 14:12] LABS: URIC ACID CRYSTALS >10 Many /LPF (None Seen)
[2020-02-24 17:57] LABS: BE 3.6 mmol/L (-2 to +3); PCO2 42.6 mmHg (35.0-45.0); PO2 72.3 mmHg (75.0-100.0); pH 7.438 (7.340-7.450)
[2020-02-25] VITALS (19 sets, daily range): BP systolic 140–184; BP diastolic 49–81
[2020-02-25 05:31] LABS: HEMATOCRIT 24.8 % (42.0-52.0); HEMOGLOBIN 8.4 gm/dL (14.0-18.0); MCHC 33.9 g/dL (28.0-37.0); MCV 88.5 fL (80.0-100.0); MPV 8.4 fl. (7.2-11.1); RBC 2.8 mil/uL (4.50-6.00); RDW-CV 13.9 % (10.5-14.5); WBC 8.4 thou/uL (4.0-11.0)
[2020-02-25 05:49] LABS: ALBUMIN 1.6 g/dL (3.4-5.0); CALCIUM 8.2 mg/dL (8.5-10.1); CREATININE 1.5 mg/dL (0.6-1.3); MAGNESIUM 1.7 mg/dL (1.8-2.4); POTASSIUM 4.6 mmol/L (3.5-5.1); TOTAL BILIRUBIN 0.3 mg/dL (<0.1-1.0); TOTAL PROTEIN 6.1 g/dL (6.4-8.2)
--- NOTE | 2020-02-25 14:51 | NUR ---
ICU rounds: Doing better, weaning trial today.
--- NOTE | 2020-02-25 18:11 | NUR ---
PT ANSWERS Y/N QUESTIONS AND MOUTHS WORDS. SAT AT THE SIDE OF THE BED WITH PT TODAY. TUBE FEED INFUSING AT GOAL OF 50. OSORIO TO DD. FECAL TUBE TO DD. PRECIDEX INFUSING. DENIES PAIN. PROGRESSING TOWARDS GOALS.
[2020-02-26] VITALS (12 sets, daily range): BP systolic 131–165; BP diastolic 65–81
[2020-02-26 04:57] LABS: HEMATOCRIT 24.1 % (42.0-52.0); HEMOGLOBIN 8.2 gm/dL (14.0-18.0); MCHC 34.2 g/dL (28.0-37.0); MCV 87.6 fL (80.0-100.0); MPV 8.1 fl. (7.2-11.1); RBC 2.75 mil/uL (4.50-6.00)
[2020-02-26 05:33] LABS: ALBUMIN 1.6 g/dL (3.4-5.0); CALCIUM 8.1 mg/dL (8.5-10.1); CREATININE 1.4 mg/dL (0.6-1.3); MAGNESIUM 1.8 mg/dL (1.8-2.4); POTASSIUM 4.3 mmol/L (3.5-5.1); TOTAL BILIRUBIN 0.3 mg/dL (<0.1-1.0); TOTAL PROTEIN 6.2 g/dL (6.4-8.2)
--- NOTE | 2020-02-26 07:14 | NUR ---
PRECEDEX TITRATED OFF AT 0430. PT IS ALERT, USING SOFT-TOUCH CALL LIGHT APPROPRIATELY. COMMUNICATES VIA NODDING/SHAKING HEAD TO YES/NO QUESTIONS. FECAL TUBE DC'D THIS AM FECAL OUTPUT HAS DECREASED AND HAS THICKENED CONSISTENCY. AFEBRILE. SOFT-TOUCH CALL LIGHT WITHIN REACH.
[2020-02-26 10:25] LABS: BE 4.9 mmol/L (-2 to +3); PCO2 VENOUS 50.8 mmHg (41.0-51.0); PO2 VENOUS 108.9 mmHg (35.0-45.0)
--- NOTE | 2020-02-26 10:35 | NUR ---
ICU rounds: Pt doing significantly better. Plan to be extubated today. PT in working with Pt now, Pt sat up on the side of the bed yesterday. Pt able to follow simple commands and answer questions with head nods. Tube feeds off. No IVABX. Following for dispo needs.
--- NOTE | 2020-02-26 12:48 | NUR ---
pt had weaning trial today did great all vitals within normal range ready to extubate per dr nunez but per pt stated he was scared and would rather wait until tomorrow dr nunez said that was fine and we will wait until tomorrow pt remains on pressure support tolerated well precedex gtt off
--- NOTE | 2020-02-26 15:32 | NUR ---
WOUND NURSE: PATIENT SEEN FOR FOLLOW UP ASSESSMENT OF SACRAL DEEP TISSUE INJURY: WOUND IS WITH INSIGNIFICANT CHNAGE IN WOUND CHARACTERISTICS COMPARED TO ONE WEEK AGO. PURPLE NONBLANCHEABLE TISSUE MEASURING 1.5 X 9.0 CM. DEPTH NOT MEASURABLE AT THIS TIME. WOUND WITH YELLOWISH OPAQUE DRAINAGE IN MODERATE AMOUNTS. CLEANSED WITH SOAP AND WATER, RINSED WITH WATER, THEN PATTED DRY. APPLIED OPTIFOAM GENTLE AG TO WOUND BED AND REPOSITIONED ONTO HIS SIDE.
[2020-02-27] VITALS (23 sets, daily range): BP systolic 105–165; BP diastolic 64–83
[2020-02-27 04:41] LABS: ABSOLUTE EOSINOPHILS 0.2 thou/uL (0.0-0.7); ABSOLUTE LYMPHOCYTES 0.8 thou/uL (0.8-5.3); ABSOLUTE MONOCYTES 0.5 thou/uL (0.0-1.2); ABSOLUTE NEUTROPHILS 6.4 thou/uL (1.6-8.1); BASOPHILS 0.5 %; EOSINOPHILS 2.8 %; HEMATOCRIT 25.6 % (42.0-52.0); HEMOGLOBIN 8.7 gm/dL (14.0-18.0); MCH 29.9 pg (26.0-34.0); MCV 87.8 fL (80.0-100.0); MONOCYTES 6.3 %; MPV 8.4 fl. (7.2-11.1); NUCLEATED RBCS 0 /100WBC; PLATELET COUNT* 246 thou/uL (150-400); POLYS 80.4 %; RBC 2.91 mil/uL (4.50-6.00); WBC 7.9 thou/uL (4.0-11.0)
[2020-02-27 05:05] LABS: BE 4.5 mmol/L (-2 to +3); PCO2 VENOUS 50.7 mmHg (41.0-51.0); PO2 VENOUS 106.9 mmHg (35.0-45.0)
--- NOTE | 2020-02-27 05:56 | NUR ---
ASSUMED PATIENT CARE AT 1900. ASSESSMENTS COMPLETED CHARTED. PATIENT IS NSR ON THE MONITOR. PATIENT TURNED Q2. PLAN FOR EXTUBATION TODAY. PATIENT TOLERATING PRESSURE SUPPORT WELL. SACRAL DRESSING CHANGED TODAY, PICC DRESSING CHANGED. PATIENT TOLERATING FEEDINGS AND PROGRESSING TOWARD GOALS. WILL CONTINUE TO MONITOR. CLWR.
[2020-02-27 06:03] LABS: ALBUMIN 1.6 g/dL (3.4-5.0); CALCIUM 8.5 mg/dL (8.5-10.1); CREATININE 1.3 mg/dL (0.6-1.3); MAGNESIUM 1.7 mg/dL (1.8-2.4); POTASSIUM 4.3 mmol/L (3.5-5.1); TOTAL BILIRUBIN 0.3 mg/dL (<0.1-1.0); TOTAL PROTEIN 6.1 g/dL (6.4-8.2)
--- NOTE | 2020-02-27 07:02 | NUR ---
ASSUMED CARE OF PATIENT AT 1900 WITH RENITA ROSE RN. PATIENT REMAINS IN COVID PRECAUTIONS AND IS COVID-19 POSITIVE. I AGREE WITH ALL CHARTED ASSESSMENTS AND INTERVENTIONS DOCUMENTED BY JOSE MARAVILLA THIS SHIFT AND VERIFY HIS CHARTING IS ACCURATE AND AGREEABLE TO STANDARDS OF PRACTICE.
--- NOTE | 2020-02-27 11:42 | EKG ---
[place] [address] ELECTROCARDIOGRAM REPORT Name: ANTOINETTE CHANDRA Room: [address] ADM IN .R.#: [id number] Admission: 01/31/20 Attend Phys: Fernie Chauhan Discharge: Date of : 48 Date of Service: 01/31/20 1307 Report #: [id number] THIS REPORT FOR: //name// [facility] ED Test Date: 2020-01-31 Test Time: 13:07:24 Pat Name: ANTOINETTE CHANDRA Department: Room: [facility] Gender: M Principal Gifts Officer: ANDREY : 1950 Requested By: Eh Craig Order Number: [id number] MD: Noe Schwab Measurements Intervals [place] Rate: 71 P: 54 UT: 170 QRS: -8 QRSD: 89 T: 33 QT: 379 QTc: 412 Interpretive Statements Sinus rhythm Probable left atrial enlargement Probable left ventricular hypertrophy Baseline wander in lead(s) V5 Compared to ECG 09/09/2019 04:22:08 No significant changes Electronically Signed On 02-02-2020 11:43:14 CDT by Noe Schwab [email or web address] <ELECTRONICALLY SIGNED> By: Noe Schwab MD, [facility] 02/02/20 1143 1307 1307 Noe Schwab MD, [facility] /EPI
--- NOTE | 2020-02-27 11:49 | EKG ---
[place] [address] ELECTROCARDIOGRAM REPORT Name: CORAZONANTOINETTE Karol Room: [address] ADM [place] .R.#: [id number] Admission: 01/31/20 Attend Phys: Fernie Chauhan Discharge: Date of : 48 Date of Service: 02/06/20902 Report #: [id number] THIS REPORT FOR: //name// [facility] Test Date: 2020-02-06 Test Time: 09:03:06 Pat Name: ANTOINETTE CHANDRA Department: Room: [address] Gender: M Cigar Head Puncher: BIANKA : 1950 Requested By: Wesley Preciado Order Number: [id number] MD: Noe Schwab Measurements Intervals [place] Rate: 72 P: 48 ID: [id number] QRS: 2 QRSD: 88 T: 13 QT: 377 QTc: 413 Interpretive Statements Sinus rhythm nonspecific t wave changes Compared to ECG 01/31/2020 13:07:24 No significant changes Electronically Signed On 02-06-2020 13:41:01 CDT by Noe Schwab [email or web address] <ELECTRONICALLY SIGNED> By: Noe Schwab MD, [facility] 02/06/20 1341 09 0903 Noe Schwab MD, [facility] /EPI
--- NOTE | 2020-02-27 18:41 | NUR ---
PT VSS, A&O, PT EXTUBATED AROUND 1030 BREATHING WITHOUT COMPLICATION- HEAD OF BED AT NO LESS THAN 30 DEGREES, TRIPLE LUMEN PICC DEEPA- SALINE LOCKED, NG TUBE AT 61CM- LEFT NARE, NPO- TUBE FEED AT 50ML- STOPPED OVERNIGHT PER PULM, OSORIO CATHETER IN PLACE
[2020-02-28] VITALS (19 sets, daily range): BP systolic 126–174; BP diastolic 58–81
[2020-02-28 04:37] LABS: HEMATOCRIT 23.8 % (42.0-52.0); HEMOGLOBIN 8.1 gm/dL (14.0-18.0); MCH 29.7 pg (26.0-34.0); MCV 87.5 fL (80.0-100.0); MPV 7.5 fl. (7.2-11.1); RBC 2.73 mil/uL (4.50-6.00); RDW-CV 14.1 % (10.5-14.5); WBC 8.2 thou/uL (4.0-11.0)
[2020-02-28 05:01] LABS: ALBUMIN 1.8 g/dL (3.4-5.0); CALCIUM 8.1 mg/dL (8.5-10.1); CREATININE 1.4 mg/dL (0.6-1.3); MAGNESIUM 1.5 mg/dL (1.8-2.4); POTASSIUM 3.9 mmol/L (3.5-5.1); TOTAL BILIRUBIN 0.4 mg/dL (<0.1-1.0); TOTAL PROTEIN 6.2 g/dL (6.4-8.2)
--- NOTE | 2020-02-28 07:33 | NUR ---
ASSESSMENTS CHARTED. PATIENT DOES NOT TOLERATE TURNING TO LEFT SIDE, WILL DESATE TO 80%. PATIENT REMAINS IN COVID ISOLATION. PATIENT SEEMS TO BE TOLERATING EXTUBATION WELL. NO SIGNS OF RESPIRATORY DISTRESS ON NASAL CANULA. DID NOT RECIEVE ANY SLIDING SCALE INSULIN OVERNIGHT. BLOOD GLUCOSE LEVELS STABLE. TUBE FEEDING ON HOLD PER PULMONARY. PATIENT RESPONDING APPROPRIATELY TO QUESTIONS AND STRENGTH IS IMPROVING. WCTM
[2020-02-29] VITALS (19 sets, daily range): BP systolic 119–170; BP diastolic 61–75
--- NOTE | 2020-02-29 06:55 | NUR ---
ASSESSMENTS CHARTED. PATIENT STILL NOT NEEDING SLIDING SCALE INSULIN. NO BM THIS SHIFT. AROUND 0400, PATIENT'S HEART RATE DROPPED TO LOW 40'S AND O2 SAT TO 70'S. WENT TO CHECK ON PATIENT WITH RT. PATIENT SOUNDED LIKE THERE WERE SECRETIONS HE WAS TRYING TO COUGH OUT BUT WAS NOT STRONG ENOUGH TO. DEEP SUCTIONED PATIENT AND REMOVED LARGE MUCOUS SECRETIONS. HR AND O2 SAT IMPROVED. CHANGED SACRAL WOUND DRESSING AND TOOK PICTURES OF WOUND THIS SHIFT. PATIENT IS IMPROVING SLOWLY TOWARD GOALS. WCTM.
[2020-02-29 06:56] LABS: HEMATOCRIT 24.4 % (42.0-52.0); HEMOGLOBIN 8.4 gm/dL (14.0-18.0); MCH 29.9 pg (26.0-34.0); MCHC 34.3 g/dL (28.0-37.0); MPV 8.1 fl. (7.2-11.1); RBC 2.8 mil/uL (4.50-6.00); RDW-CV 14.1 % (10.5-14.5); WBC 8.2 thou/uL (4.0-11.0)
[2020-02-29 07:12] LABS: CALCIUM 8.2 mg/dL (8.5-10.1); CREATININE 1.3 mg/dL (0.6-1.3); MAGNESIUM 1.5 mg/dL (1.8-2.4); POTASSIUM 3.8 mmol/L (3.5-5.1)
--- NOTE | 2020-02-29 17:30 | NUR ---
Pt alert and confused. Tolerating feedings and H2O boluses. Continues to be NPO per speech Therapy recomendation. Sepulveda to DD. Incont of stool. Able to speak better. o2 2l NC. Progressing towards goals.
[2020-03-01] VITALS (16 sets, daily range): BP systolic 113–172; BP diastolic 58–81
--- NOTE | 2020-03-01 04:13 | NUR ---
ASSUMED CARE AT 1900H, ON NC AT 2LPM AND TOLERATED. PT STILL CONFUSED BUT KNOWS HIS NAME,AGE AND . NO DISTRESS NOTED. ORIENT PT ALL TIMES.STILL PENDING COVID RE-TEST.CONTINUE MONITORING AND TOWARD GOALS.
[2020-03-01 07:02] LABS: HEMATOCRIT 23.5 % (42.0-52.0); MCH 29.9 pg (26.0-34.0); MCHC 34.2 g/dL (28.0-37.0); MCV 87.4 fL (80.0-100.0); MPV 7.9 fl. (7.2-11.1); RBC 2.68 mil/uL (4.50-6.00); RDW-CV 14.2 % (10.5-14.5)
[2020-03-01 07:09] LABS: CALCIUM 8.1 mg/dL (8.5-10.1); CREATININE 1.2 mg/dL (0.6-1.3); MAGNESIUM 1.5 mg/dL (1.8-2.4); POTASSIUM 3.6 mmol/L (3.5-5.1)
--- NOTE | 2020-03-01 10:32 | NUR ---
SW spoke with ICU nurse for rounds: Plan for rehab when pt ready to dc. Pt continues on bolus TF 3 x day, R PICC intermittent IVs, arzate, repeat video swallow planned. Pt nurse reported pt getting stronger. SW to continue to follow to assist with safe dc planning.
--- NOTE | 2020-03-01 18:33 | NUR ---
pt progressed goals covid came back negative physician aware worked with pt sat on edge of bed rotated from side to side did passive range of motion exercises throughout day pt did not pass swallow eval but is getting better according to st video swallow to be done tomorrow tube feeding increased to 400ml/hr tid with 100ml h2o flush
[2020-03-02] VITALS (22 sets, daily range): BP systolic 137–164; BP diastolic 63–92
--- NOTE | 2020-03-02 11:59 | NUR ---
SW spoke with pt nurse for ICU rounds: No changes reported. Continue to follow for inpt rehab possible the end of this week. SW to remain available to assist with safe dc planning.
--- NOTE | 2020-03-02 17:30 | NUR ---
PT A/O X4. CONFUSED AND FORGETFUL AT TIMES. DIET ADVANCED TODAY. TOLERATED WELL. USES CALL LIGHT. JO TO LINDA. DANDRE MANUEL. REMAINS ON ENHANCED PRECAUTIONS. PROGRESSING WELL TOWARDS GOALS.
--- NOTE | 2020-03-02 21:26 | NUR ---
RESULTS CALLED BACK FROM LAB. PATIENT HAS NOW TESTED NEGATIVE FOR COIVD-19 TWICE IN A ROW. WOOT WOOT!! WILL CONTINUE TO MONITOR.
[2020-03-03] VITALS (15 sets, daily range): BP systolic 116–163; BP diastolic 60–83
--- NOTE | 2020-03-03 06:45 | NUR ---
ASSESSMENTS CHARTED. PATIENT WAS ABLE TO GET UP TO THE CHAIR WITH 2 PERSON MAX ASSIST. TOLERATED SITTING IN CHAIR FOR ABOUT 2 HOURS. RETURNED TO BED AND SLEPT FOR ABOUT HALF THE SHIFT. HAD TO INCREASE O2 TO 4L NC WHEN SLEEPING TO KEEP FROM DESATTING ON 2L. TURNS Q2H TO PREVENT FURTHER SKIN BREAKDOWN. PER PATIENT REQUEST, PILLOWS WERE USED OVER WEDGES. I DID SPEAK TO THE PATIENT ABOUT THE EVENTS OF THE PAST MONTH HE WAS ASKING WHAT HAD HAPPENED SINCE HIS "REHAB FOR MY HEART". PATIENT WAS GIVEN UPDATE OF EVERYTHING THAT HAD HAPPENED SINCE HIS ADMISSION. PATIENT IS PROGRESSING WELL TOWARD GOALS. WCTM
--- NOTE | 2020-03-03 13:40 | NUR ---
SW spoke with pt nurse for ICU rounds: pt up with PT and OT, plan to take out NG tube today, beginning diet. Plan for inpt rehab at dc soon. SW called pt Echo and discussed pt progress and dc planning. Pt in agreement with plan and hopeful for pt to be able to return home soon as she misses her terribly. SW provided emotional support and will continue to follow to safe dc planning and provide continued updates to pt /family as needed. Pt mentioned that pt son is very supportive and involved in pt care as well.
--- NOTE | 2020-03-03 17:51 | NUR ---
PT ASSESSMENT CHARTED. UP TO CHAIR FOR LUNCH AND TOLERATED WITHOUT DIFFICULTY. NG TUBE REMOVED PER ORDER. PT TAKING PILLS IN PUDDING CRUSHED/CUT IN HALF AND TOLERATING WELL. STILL REMAINS TO HAVE LITTLE APPETITE BUT SUPPLEMENTS ADDED PER EM PHYSICIAN. HAVING SOME PAIN IN THE SACRAL AREA THAT IS RELIEVED WITH POSITION CHANGES. ADDED A WAFFLE CUSHION TO HIS RECLINER WELL. PT/OT SAW PATIENT TODAY. UP WITH 2 ASSIST, GAIT BELT AND WALKER. DRESSING CHANGED WITH BATH. NO OTHER COMPLAINTS.
--- NOTE | 2020-03-03 18:53 | NUR ---
NO ISOLATION NEEDED PER INFECTIOUS DISEASE.
[2020-03-04 04:45] LABS: HEMATOCRIT 22.9 % (42.0-52.0); HEMOGLOBIN 7.8 gm/dL (14.0-18.0); MCH 29.7 pg (26.0-34.0); MCHC 33.8 g/dL (28.0-37.0); MPV 7.3 fl. (7.2-11.1); RBC 2.61 mil/uL (4.50-6.00); RDW-CV 14.2 % (10.5-14.5)
[2020-03-04 05:03] LABS: MAGNESIUM 1.6 mg/dL (1.8-2.4); POTASSIUM 3.6 mmol/L (3.5-5.1); TOTAL BILIRUBIN 0.4 mg/dL (<0.1-1.0); TOTAL PROTEIN 5.8 g/dL (6.4-8.2)
--- NOTE | 2020-03-04 06:52 | NUR ---
ASSESSMENT CHARTED. PATIENT PROGRESSING TOWARD GOALS WELL. ASSISTED PATIENT WITH ROM EXERCISES IN BED. TURNS Q2H FOR SKIN INTEGRITY. REMIANS M/S STATUS. TAKING PILLS IN ENSURE PUDDING WITH NO COMPLICATIONS. SLEEPING COMFORTABLY. WCTM
[2020-03-04 08:00] VITALS: BP 169/78
--- NOTE | 2020-03-04 10:23 | NUR ---
0730 ASSUMED CARE OF PATIENT. PLEASE SEE DOCUMENTED ASSESSMENT. PT IS MED/SURG STATUS IN THE ICU.
--- NOTE | 2020-03-04 11:25 | NUR ---
LAXMI called pt nurse for ICU rounds. SW spoke with pt yesterday about dc plan for inpt rehab most likely on Sunday. Pt out of isolation today and Dr Quiles to meet with pt once pt is out of pt ICU room. SW to continue to follow and will update pt as needed.
[2020-03-04 12:00] VITALS: BP 153/77
--- NOTE | 2020-03-04 12:01 | NUR ---
PATIENT TO MOVE TO ROOM 212. SPOUSE NOTIFIED. REPORT CALLED TO FELICITAS. UP IN CHAIR WITH PT AND STOOD WITH WALKER.
--- NOTE | 2020-03-04 15:36 | NUR ---
RECEIVED PT FROM ICU AT 1330. GET SITUATED TO ROOM. PT MED SURG. UP WITH 2 ASSIST. I AGREE WITH TAMMY PIPE AND BOILER COVERS SUPERVISOR. HOURLY ROUNDING, CALL LIGHT WITHIN REACH, WILL CONTINUE TO MONITOR.
[2020-03-04 16:34] VITALS: BP 174/78
[2020-03-04 20:30] VITALS: BP 143/73
[2020-03-05] VITALS: BP 163/74
[2020-03-05 04:00] VITALS: BP 162/80
--- NOTE | 2020-03-05 04:15 | NUR ---
ASSUMED CARE PT HAVE NO CONERNS OR COMPLAINTS FLAT AFFECT NOTED PT TURNED EVERY 2 HOURS , FOAM PADS PLACED ON BUTTOCK CHEEKS AND SACRUM. PT RESTED WELL THROUGHOUT HOURLY ROUNDS.PT VSS.
[2020-03-05 07:30] VITALS: BP 124/82
[2020-03-05] MEDS ORDERED: XARELTO20 MG PO (10:27)
[2020-03-05] MEDS ORDERED: NORVASC5 MG PO (10:27)
[2020-03-05] MEDS ORDERED: AMANTADINE 100100 M1 PO (10:27)
[2020-03-05] MEDS ORDERED: SUPER THERAVIT1 EACH PO (10:27)
[2020-03-05] MEDS ORDERED: COLACE 100 MG100 MG PO (10:27)
[2020-03-05] MEDS ORDERED: PYRIDOXINE HCL50 MG PO (10:27)
[2020-03-05] MEDS ORDERED: VENTOLIN HFA 1818 GM INH (10:27)
[2020-03-05] MEDS ORDERED: PROTONIX40 M2 PO (10:27)
[2020-03-05] MEDS ORDERED: CARVEDILOL25 MG PO (10:27)
[2020-03-05 11:13] VITALS: BP 124/82
--- NOTE | 2020-03-05 14:01 | NUR ---
Pt to dc to acute rehab today, updated Pt's . Faxed dc orders. Pt will go to room 330.
--- NOTE | 2020-03-05 17:00 | NUR ---
ASSUMED PT CARE AT 0800, AOX4, UP WITH 2 ASSIST, O2 SAT 90'S 2L NC. DENIES PAIN. AM ASSESSMENT CHARTED, MEDS GIVEN PER MAR. PT DISCHARGED TO REHAB 330. GIVE REPORT TO TREVOR GARCIA. LEFT THE UNIT AT 1700.
== END 2020-03-05 17:05 | DRG 870 ==
LOC: M.ERS 13:02 → M.2W 15:17 → M.ICU 15:17 → M.TBA-ER 15:17 → M.2W 17:13 → M.ICU 20:27 → M.2W 03-04 13:35
PROVIDERS: Family Medicine; Internal Medicine; Internal Medicine Nephrology; Internal Medicine Pulmonary Disease; Specialist; ADMIT Family Medicine
PROC: 0BH17EZ Insertion of Endotracheal Airway into Trachea, Via Natural or Artificial Opening (ICD-10-PCS; principal; 2020-02-02)
PROC: 05HN33Z Insertion of Infusion Device into Left Internal Jugular Vein, Percutaneous Approach (ICD-10-PCS; principal; 2020-02-02)
PROC: 5A1955Z Respiratory Ventilation, Greater than 96 Consecutive Hours (ICD-10-PCS; principal; 2020-02-02)
PROC: 0BC68ZZ Extirpation of Matter from Right Lower Lobe Bronchus, Via Natural or Artificial Opening Endoscopic (ICD-10-PCS; principal; 2020-02-02)
PROC: B544ZZA Ultrasonography of Left Jugular Veins, Guidance (ICD-10-PCS; principal; 2020-02-02)
PROC: 30233N1 Transfusion of Nonautologous Red Blood Cells into Peripheral Vein, Percutaneous Approach (ICD-10-PCS; 2020-02-12)
DX: A41.89 Other specified sepsis (principal); U07.1 COVID-19; J96.01 Acute respiratory failure with hypoxia; J12.89 Other viral pneumonia; I26.94 Multiple subsegmental thrombotic pulmonary emboli without acute cor pulmonale; D65 Disseminated intravascular coagulation [defibrination syndrome]; R65.21 Severe sepsis with septic shock; N17.0 Acute kidney failure with tubular necrosis; K56.7 Ileus, unspecified; E78.5 Hyperlipidemia, unspecified; I25.10 Atherosclerotic heart disease of native coronary artery without angina pectoris; E03.9 Hypothyroidism, unspecified; I12.9 Hypertensive chronic kidney disease with stage 1 through stage 4 chronic kidney disease, or unspecified chronic kidney disease; N18.9 Chronic kidney disease, unspecified; K76.89 Other specified diseases of liver; E87.5 Hyperkalemia; E83.41 Hypermagnesemia; D70.9 Neutropenia, unspecified; L89.159 Pressure ulcer of sacral region, unspecified stage; I25.2 Old myocardial infarction; Z95.5 Presence of coronary angioplasty implant and graft; Z79.2 Long term (current) use of antibiotics; Z79.899 Other long term (current) drug therapy; Z79.82 Long term (current) use of aspirin; Z88.0 Allergy status to penicillin; Z88.2 Allergy status to sulfonamides

== ENCOUNTER 2020-03-05 14:35 | Inpatient (IN) | payer MEDICARE ==
[~2020-03-05] VITALS: Ht 180.3 cm; Wt 87.8 kg
[~2020-03-05 14:35] MED LIST changes: +AMANTADINE 100100 M1 PO; +CARVEDILOL25 MG PO; +COLACE 100 MG100 MG PO; +LIPITOR40 MG PO; +NORVASC 2.5 MG2.5 M1 PO; +NORVASC5 MG PO; +PROAIR HFA8.5 GM INH; +PROTONIX40 M2 PO; +PYRIDOXINE HCL50 MG PO; +SUPER THERAVIT1 EACH PO; +VENTOLIN HFA 1818 GM INH; +XARELTO20 MG PO; +ZPAK PO
[2020-03-05 18:19] VITALS: BP 178/85
[2020-03-05 20:31] VITALS: BP 163/83
[2020-03-06 05:02] LABS: HEMATOCRIT 26.2 % (42.0-52.0); MCH 30.4 pg (26.0-34.0); MCHC 34.2 g/dL (28.0-37.0); MCV 88.9 fL (80.0-100.0); MPV 7.4 fl. (7.2-11.1); RBC 2.95 mil/uL (4.50-6.00); WBC 5.4 thou/uL (4.0-11.0)
[2020-03-06 05:15] LABS: CALCIUM 8.3 mg/dL (8.5-10.1); POTASSIUM 3.4 mmol/L (3.5-5.1)
[2020-03-06 09:26] VITALS: BP 144/63
[2020-03-06 20:13] VITALS: BP 151/69
[2020-03-07 08:29] VITALS: BP 161/75
[2020-03-07 19:15] VITALS: BP 164/79
[2020-03-08 07:42] LABS: ABSOLUTE BASOPHILS 0.1 thou/uL (0.0-0.2); ABSOLUTE EOSINOPHILS 0.1 thou/uL (0.0-0.7); ABSOLUTE MONOCYTES 0.3 thou/uL (0.0-1.2); ABSOLUTE NEUTROPHILS 2.7 thou/uL (1.6-8.1); BASOPHILS 1.2 %; EOSINOPHILS 3.2 %; HEMATOCRIT 26.2 % (42.0-52.0); HEMOGLOBIN 8.8 gm/dL (14.0-18.0); LYMPHOCYTES 23.7 %; MCH 29.9 pg (26.0-34.0); MCHC 33.6 g/dL (28.0-37.0); MONOCYTES 7.6 %; MPV 7.3 fl. (7.2-11.1); NUCLEATED RBCS 0 /100WBC; PLATELET COUNT* 185 thou/uL (150-400); POLYS 64.3 %; RBC 2.94 mil/uL (4.50-6.00); RDW-CV 15.2 % (10.5-14.5); WBC 4.1 thou/uL (4.0-11.0)
[2020-03-08 07:53] VITALS: BP 149/76
[2020-03-08 19:50] VITALS: BP 151/69
[2020-03-09 06:48] LABS: ABSOLUTE BASOPHILS 0.1 thou/uL (0.0-0.2); ABSOLUTE EOSINOPHILS 0.2 thou/uL (0.0-0.7); ABSOLUTE LYMPHOCYTES 1.2 thou/uL (0.8-5.3); ABSOLUTE MONOCYTES 0.3 thou/uL (0.0-1.2); ABSOLUTE NEUTROPHILS 3.3 thou/uL (1.6-8.1); BASOPHILS 1.3 %; EOSINOPHILS 3.1 %; HEMATOCRIT 25.5 % (42.0-52.0); HEMOGLOBIN 8.6 gm/dL (14.0-18.0); LYMPHOCYTES 23.8 %; MCH 30.2 pg (26.0-34.0); MCHC 33.8 g/dL (28.0-37.0); MCV 89.3 fL (80.0-100.0); MONOCYTES 6.6 %; MPV 7.6 fl. (7.2-11.1); NUCLEATED RBCS 0 /100WBC; PLATELET COUNT* 178 thou/uL (150-400); POLYS 65.2 %; RBC 2.85 mil/uL (4.50-6.00); RDW-CV 15.8 % (10.5-14.5)
[2020-03-09 08:00] VITALS: BP 161/82
[2020-03-09 19:50] VITALS: BP 136/57
[2020-03-10 06:44] LABS: ABSOLUTE BASOPHILS 0.1 thou/uL (0.0-0.2); ABSOLUTE EOSINOPHILS 0.2 thou/uL (0.0-0.7); ABSOLUTE LYMPHOCYTES 1.2 thou/uL (0.8-5.3); ABSOLUTE MONOCYTES 0.3 thou/uL (0.0-1.2); EOSINOPHILS 3.9 %; HEMATOCRIT 26.7 % (42.0-52.0); HEMOGLOBIN 9.1 gm/dL (14.0-18.0); MCH 30.3 pg (26.0-34.0); MCHC 34.1 g/dL (28.0-37.0); MCV 88.9 fL (80.0-100.0); MONOCYTES 6.5 %; MPV 7.4 fl. (7.2-11.1); NUCLEATED RBCS 0 /100WBC; PLATELET COUNT* 180 thou/uL (150-400); POLYS 62.6 %; RDW-CV 16.6 % (10.5-14.5); WBC 4.7 thou/uL (4.0-11.0)
[2020-03-10 08:00] VITALS: BP 167/80
[2020-03-10 20:19] VITALS: BP 141/65
[2020-03-11 07:26] VITALS: BP 168/80
[2020-03-11 08:36] LABS: ABSOLUTE BASOPHILS 0.1 thou/uL (0.0-0.2); ABSOLUTE EOSINOPHILS 0.1 thou/uL (0.0-0.7); ABSOLUTE LYMPHOCYTES 1.2 thou/uL (0.8-5.3); ABSOLUTE MONOCYTES 0.3 thou/uL (0.0-1.2); ABSOLUTE NEUTROPHILS 3.2 thou/uL (1.6-8.1); BASOPHILS 1.2 %; HEMATOCRIT 25.7 % (42.0-52.0); HEMOGLOBIN 8.8 gm/dL (14.0-18.0); MCH 30.6 pg (26.0-34.0); MCHC 34.4 g/dL (28.0-37.0); MONOCYTES 6.8 %; MPV 7.3 fl. (7.2-11.1); NUCLEATED RBCS 0 /100WBC; PLATELET COUNT* 178 thou/uL (150-400); RBC 2.88 mil/uL (4.50-6.00); RDW-CV 16.8 % (10.5-14.5)
[2020-03-11 19:55] VITALS: BP 165/73
[2020-03-11 21:27] VITALS: BP 165/73
[2020-03-13] MEDS ORDERED: XARELTO20 MG PO (09:57)
[2020-03-13] MEDS ORDERED: CEFUROXIME250 MG PO (09:57)
== END 2020-03-12 07:00 | disposition short-term general hospital (02) | DRG 91 ==
LOC: M.REH 14:35
PROVIDERS: ADMIT Physical Medicine & Rehabilitation
DX: G72.81 Critical illness myopathy (principal); U07.1 COVID-19; N17.0 Acute kidney failure with tubular necrosis; I26.99 Other pulmonary embolism without acute cor pulmonale; J12.89 Other viral pneumonia; J96.01 Acute respiratory failure with hypoxia; A41.89 Other specified sepsis; R65.21 Severe sepsis with septic shock; E43 Unspecified severe protein-calorie malnutrition; K56.7 Ileus, unspecified; E78.5 Hyperlipidemia, unspecified; I10 Essential (primary) hypertension; I25.10 Atherosclerotic heart disease of native coronary artery without angina pectoris; D69.6 Thrombocytopenia, unspecified; D70.9 Neutropenia, unspecified; B34.9 Viral infection, unspecified; G62.9 Polyneuropathy, unspecified; L89.309 Pressure ulcer of unspecified buttock, unspecified stage; F12.90 Cannabis use, unspecified, uncomplicated; Z88.0 Allergy status to penicillin; Z88.2 Allergy status to sulfonamides; Z88.8 Allergy status to other drugs, medicaments and biological substances; I25.2 Old myocardial infarction; Z95.5 Presence of coronary angioplasty implant and graft; Z87.891 Personal history of nicotine dependence; Z68.27 Body mass index [BMI] 27.0-27.9, adult

== ENCOUNTER 2020-03-12 07:04 | Inpatient (IN) | payer MEDICARE ==
[~2020-03-12] VITALS: Ht 152.4 cm; Wt 87.5 kg
--- NOTE | ~2020-03-12 | OP ---
[address] [address] OPERATIVE REPORT Name: HUGOVIKANTOINETTE Karol Room: [address] IN M.R.#: [id number] Admission: 03/12/20 Attend Phys: Wesley Preciado MD Discharge: Date of : 48 Report #: [id number] THIS REPORT FOR: //name// cc: Noe Chatman MD, David L. MD ~ THIS REPORT FOR: //name// CC: Noe Preciado Carson Quiles PREOPERATIVE DIAGNOSIS: Right buttock pressure ulcer, 12 x 6 cm. POSTOPERATIVE DIAGNOSIS: Right buttock pressure ulcer, 12 x 6 cm. OPERATION: Excisional debridement of right buttock pressure ulcer, 12 x 6 cm, down through muscle. SURGEON: Gonsalo Owen MD ANESTHESIA: General. ESTIMATED BLOOD LOSS: Minimal. SPECIMEN: Deep tissue for culture and sensitivity. DESCRIPTION OF PROCEDURE: After informed consent was obtained, the patient was brought to the operating room and placed supine. SCDs were placed and working, preoperative antibiotics were not administered, general anesthesia was induced. The patient was placed in the left lateral decubitus position with all bony prominences protected. The area was then prepped and draped in the usual sterile fashion. This was an excisional debridement. Depth was down to the muscle. 100% of the wound was debrided. Post-debridement wound area was approximately 12 x 6 cm. I used cautery to debride away necrotic tissue down through the muscle. 100% of the wound was debrided. The cautery was used for the debridement. The wound bed was fair. I then packed the area with sterile gauze. Sterile dressings were applied. COMPLICATIONS: None. DISPOSITION: The patient was taken to recovery in satisfactory condition. By: 1322 [id number] Owen MD /nt
[2020-03-12 08:00] VITALS: BP 116/68
--- NOTE | 2020-03-12 10:56 | NUR ---
PT ADMITTED ON TELEMETRY FLOOR FROM REHAB ON SPECIALTY AIR MATTRESS AT 0800. VSS. ON 2 L NC. SEE CHART. HEART MONITOR APPLIED. TRACING SR. NO COMPLAINT. PT REPOSITIONED BECAUSE OF IMMOBILITY. PT KEPT NPO. PT TO GO TO SX AT 1030 PER SURGERY NURSE. IV LINE PLACED IN BY INFUSION NURSE. THIS NURSE CONTACTED FOR ADMISSION ORDER. PT IS A MEDSURG ADMIT. PT HAD LEFT THIS FLOOR AT 1035 AM WITH SX NURSE, WITH HEART MONITOR ON BEFORE THIS NURSE COULD ACHKNOWLEDGE THE MEDSURG STATUS ORDER.
[2020-03-12 11:08] LABS: HEMATOCRIT 27.1 % (42.0-52.0); HEMOGLOBIN 9.2 gm/dL (14.0-18.0); MCH 30.5 pg (26.0-34.0); MCHC 33.8 g/dL (28.0-37.0); MCV 90.2 fL (80.0-100.0); MPV 7.3 fl. (7.2-11.1); RDW-CV 16.9 % (10.5-14.5); WBC 5.9 thou/uL (4.0-11.0)
[2020-03-12 11:16] LABS: CALCIUM 8.5 mg/dL (8.5-10.1); CREATININE 1.1 mg/dL (0.6-1.3); MAGNESIUM 1.5 mg/dL (1.8-2.4); POTASSIUM 3.4 mmol/L (3.5-5.1)
[2020-03-12 11:17] LABS: APTT 27.1 Seconds (25.0-31.3); INR 1.1; PROTIME 11.4 Seconds (9.20-11.50)
--- NOTE | 2020-03-12 13:24 | NUR ---
PT.ADMITTED FROM OUR ACUTE REHAB UNIT FOR DEBRIDMENT OF PRESSURE ULCER. PT.HAD A LONG HOSPITAL STAY IN FEBRUARY DUE TO POSITIVE COVID 19. PER GEOVANNI/REHAB LIASON, REHAB UNIT WILL ACCEPT PT.BACK WHEN STABLE FROM DEBRIDMENT SURGERY.
--- NOTE | 2020-03-12 14:18 | NUR ---
PT BACK FOR SX AT 1400. LR HANGED ORDERE. MAG AND K REPLACED. FOOD PROVIDED. VS TAKEN SEE CHART. PT REPOSTIONNED. I&D DRESSING IN R BUTTOCK LOOKS SATURATED. DRESSING REINFORCED BY SX NURSE AT BEDSIDE. WILL CONTINUE TO MONIOTR. CALL LIGHT AT REACH
[2020-03-12 14:19] VITALS: BP 162/81
[2020-03-12 16:13] VITALS: BP 157/75
--- NOTE | 2020-03-12 17:43 | NUR ---
PT REPOSITIONED AGAIN. RIGHT BUTTOCK DRESSING LOOKS MODERATELY SATURATIN WITH BLOOD, BUT NO DRAINING. DRESSING IS WELL SECURED. PT IS CURRENTLY EATING DINER.IV FLUID (LR) INFUSING AT 40 CC PER HOUR. CALL LIGHT WITHIN REACH. WILL CONTINUE TO MONITOR
[2020-03-12 20:00] VITALS: BP 148/71
[2020-03-12 23:44] VITALS: BP 134/78
[2020-03-13 04:23] VITALS: BP 149/67
--- NOTE | 2020-03-13 06:49 | NUR ---
ASSESSMENTS COMPLETED CHARTED, MEDICATIONS ADMINISTERED PER MAR. HOURLY ROUNDING FOR SAFETY. CALL LIGHT WITHIN REACH.
[2020-03-13] MEDS ORDERED: CEFUROXIME250 MG PO (09:57)
[2020-03-13] MEDS ORDERED: XARELTO20 MG PO (09:57)
--- NOTE | 2020-03-13 10:02 | NUR ---
Nutrition: RD familiar with pt. He was on Rehab unit; he will be returning once stable from debridement surgery. Sacral ulcer. No new labs. Chopped diet. Wt is 192#, which is still trending down slowly. Will continue to follow pt on Rehab unit weekly. Mild risk. F/u 03/17/20.
[2020-03-13 15:34] VITALS: BP 158/68
--- NOTE | 2020-03-13 16:59 | NUR ---
PT A&OX4 VSS. PT ON 2L O2 BY NC. DENIES SOB. IV TO LFA PATENT, NO REDNESS/SWELLING NOTED. PT REMAINS ON MECH CHOPPED/DIABETIC DIET. PT UP MAX ASSIST W/GAIT BELT. PT Q2H TURNS FOR SKIN INTEGRITY. WOUND DRESSING CHANGED THIS SHIFT. MODERATE AMT OF PINK DRAINAGE OBSERVED ON DRESSINGS. NO ACTIVE BLEEDING OBSERVED. WOUND PACKED W/DAKIN SOAKED GAUZE AND SECURED W/ LG ISLAND DRESSINGS. PT ASSISTED TO REPOSITION FOR COMFORT. PT RESTS IN BED WITH CALL LIGHT IN REACH. PT TO DC TO INPT REHAB IN THE AM. WILL CONTINUE TO MONITOR.
[2020-03-13 20:00] VITALS: BP 142/63
[2020-03-14] VITALS: BP 150/77
[2020-03-14 07:35] VITALS: BP 156/76
[2020-03-14 08:40] VITALS: BP 156/76
--- NOTE | 2020-03-14 11:32 | NUR ---
PT A&OX4 VSS. PT WOUND DRESSING CHANGED BY PHYSICIAN THIS AM. DRESSING C/D/I. PT ON 1L O2 BY NICOLLE. NO C/O PAIN AT THIS TIME. IV TO LFA DC'D PRIOR TO PT LEAVING UNIT. NO REDNESS/SWELLING NOTED AT SITE. PT HAS OSORIO R/T OPEN WOUND. OSORIO PATENT, YELLOW URINE OBSERVED IN COLLECTION BAG. PT Q2H TURN FOR SKIN INTEGRITY. PT TRANSFERRED ON BED WITH LOW AIRLOSS SPECIALTY MATTRESS. PT TO REHAB WITH ALL PERSONAL BELONGINGS.
== END 2020-03-14 10:26 | DRG 579 ==
LOC: M.2W 07:04
PROVIDERS: ADMIT Internal Medicine
PROC: 0KBN0ZZ Excision of Right Hip Muscle, Open Approach (ICD-10-PCS; principal; 2020-03-12)
DX: L89.319 Pressure ulcer of right buttock, unspecified stage (principal); E43 Unspecified severe protein-calorie malnutrition; U07.1 COVID-19; Z99.11 Dependence on respirator [ventilator] status; I10 Essential (primary) hypertension; E78.5 Hyperlipidemia, unspecified; E11.40 Type 2 diabetes mellitus with diabetic neuropathy, unspecified; I25.10 Atherosclerotic heart disease of native coronary artery without angina pectoris; Z88.1 Allergy status to other antibiotic agents; Z88.0 Allergy status to penicillin; Z88.8 Allergy status to other drugs, medicaments and biological substances; Z79.899 Other long term (current) drug therapy; Z79.51 Long term (current) use of inhaled steroids; Z79.01 Long term (current) use of anticoagulants; Z88.2 Allergy status to sulfonamides; I25.2 Old myocardial infarction; Z95.5 Presence of coronary angioplasty implant and graft; Z87.891 Personal history of nicotine dependence; Z68.37 Body mass index [BMI] 37.0-37.9, adult

== ENCOUNTER 2020-03-14 08:45 | Inpatient (IN) | payer MEDICARE ==
[~2020-03-14] VITALS: Ht 180.3 cm; Wt 81.2 kg
--- NOTE | ~2020-03-14 | OP ---
[address] [address] OPERATIVE REPORT Name: ANTOINETTE CHANDRA Room: [address] IN .R.#: [id number] Admission: 03/14/20 Attend Phys: Carson Quiles MD Discharge: Date of : 48 Report #: [id number] THIS REPORT FOR: //name// cc: Noe Chatman MD, David L. MD ~ THIS REPORT FOR: //name// CC: Noe Quiles DATE OF SERVICE: 04/08/2020 PREOPERATIVE DIAGNOSIS: Sacral pressure ulcer, 6 x 5 cm. POSTOPERATIVE DIAGNOSIS: Sacral pressure ulcer, 6 x 5 cm. OPERATION: Excisional debridement of sacral pressure ulcer, 6 x 5 cm, down through muscle. SURGEON: Gonsalo Oewn MD ANESTHESIA: None. ESTIMATED BLOOD LOSS: Minimal. SPECIMEN: None. DESCRIPTION OF PROCEDURE: This was an excisional debridement. Depth was down through the muscle. A 100% of the wound was debrided. Post-debridement wound area was 6 x 5 cm. There were no complications and the wound bed was fair. There is fair amount of slough. Scissors were used to sharply excise away necrotic tissue down to the healthy muscle and down through the muscle. Sterile dressings were applied. COMPLICATIONS: None. By: [id number] Owen MD /nt
[~2020-03-14 08:45] MED LIST changes: +CEFUROXIME250 MG PO
[2020-03-14 13:13] VITALS: BP 152/71
--- NOTE | 2020-03-14 17:26 | NUR ---
PATIENT ARRIVED TO ROOM 321 AT 1015 THIS AM VIA SPECIALTY BED. ASSESSMENT CHARTED. V/S CHARTED. NO C/O PAIN AT THIS TIME. DRESSING ON COCCYX MOIST AND LEAKING. OSORIO CATHETER PATENT WITH CLEAR YELLOW. ON SPECIALTY BED. CALL LIGHT WITHIN REACH.
--- NOTE | 2020-03-14 17:28 | NUR ---
ALERT AND ORIENTED BUT SLOW AT TIMES WITH RESPONSES AT TIMES. TURNED SIDE TO SIDE ON SPECIALTY BED. ON CONTACT PRECAUTIONS FOR MRSA IN WOUNDS. OSORIO CATHETER PATENT WITH CLEAR YELLOW URINE. DRESSING CHANGED AND NEW DRESSING APPLIED ORDERED. UP TO BEDSIDE COMMODE WITH 2 ASSIST, GAIT BELT AND WALKER. CONTIENT OF BOWELS. FED SELF MECH CHOPPED FOOD WITH THIN LIQUIDS. USES CALL LIGHT WITHIN REACH. FALL PRECAUTIONS IN PLACE.
--- NOTE | 2020-03-14 17:47 | NUR ---
PATIENT ARRIVED TO ROOM 321 AT 1015 VIA SPECIALTY BED. THIS NOTE IS LINKED TO ACCT [id number].
[2020-03-14 20:00] VITALS: BP 135/60
[2020-03-14 22:20] VITALS: BP 135/60
--- NOTE | 2020-03-14 23:25 | NUR ---
STEVEN COLLINS IS FINISHING USING UP HIS INHALER AT THE MOMENT WHICH ARE SCHEDULE 2 PUFFS QID UNTIL FINISHED AND THEN TO CHANGE TO AEROSOL TXS QID AFTER INHALER IS USED UP. CAN WE PLEASE CHANGE THE INHALER TO 2 PUFFS TID SO WE DO NOT HAVE TO DO THE 0500AM PUFFS. HE IS VERY SLEEPY AND HAS A HARD TIME BREATHING THE INHALER THE RIGHT WAY. PT IS ON RA AND BREATH SOUND ARE MUCH BETTER SLIGHTLY DECREASED. RT
--- NOTE | 2020-03-15 05:04 | NUR ---
THIS NOTE IS LINKED TO . ASSUMED CARE AT 1920. ALERT AND ORIENTED. PLEASANT. DENIED ANY PAIN. OSORIO CATHETER DD [place] URINE. CONTACT ISOLATION FOR MRSA TO OPEN WOUND RIGHT BUTTOCK. DRESSING TO RIGHT BUTTOCK WAS CHANGED. PICTURE TAKEN. PT TURNED ONTO SIDES WHILE IN BED. SLEPT OFF AND ON. CALL LIGHT IN REACH AND BED ALARM ON.
[2020-03-15 08:45] VITALS: BP 125/70
--- NOTE | 2020-03-15 12:33 | NUR ---
WOUND NURSE: PATIENT SEEN TO ADDRESS POST SURGICAL DEBRIDEMENT OF SACROCOCCYGEAL ESCHARS. RIGHT SACROCOCCYGEAL LESION MEASURES 6.0 X 6.0 X 1.5 CM, CONTAINS 50% THIN LAYER OF FIRMLY ADHERING SLOUGH AND 50% PINKISH RED, NONGRANULATING TISSUE. RIGHT BUTTOCK WOUND MEASURES 4.5 X 3.5 X 1.5 CM AND PRESENTS THE SAME THE AFOREMENTIONED WOUND. BOTH WOUNDS WITH LARGE AMOUNTS OF SEROUSANGUINOUS DRAINAGE. LEFT BUTTOCK WOUND MEASURES 1.3 X 1.3 X 1.5 CM. WOUND BED PRESENTS 50% FIRMLY ADHERING YELLOW SLOUGH AND 50% RED, NONGRANULATING TISSUE. WOUND ACTIVELY BLEEDING WITH ESTIMATED AMOUNT OF DRAINAGE APPROX 4 TO 6 OUNCES. HELD PRESSURE FOR ABOUT 15 MINUTES, OBTAINED AND USED 2 SILVER NITRATE STICKS, THEN PACKED FIRMLY WITH AQUACEL AG AND COVERED WITH A BORDERED FOAM DRESSING. ALL WOUNDS WERE CLEANSED WITH WOUND CLEANSER AND GAUZE. APPLIED SKIN PREP TO LEFT BUTTOCK WOUND, APPLIED MASTISOL TO RIGHT BUTTOCK AND SACROCOCCYGEAL WOUND. RIGHT BUTTOCK AND SACROCOCCYGEAL WOUNDS: APPLIED GRANUFOAM (CUT TO FIT), COVERED WITH TRANSPARENT DRAPE WITH HOLE CUT FOR SUCTION, BRIDGED AWAY FROM WOUNDS. SETTINGS: 125MMHG CONTINUOUS NEGATIVE PRESSURE. PATIENT PLACED IN SUPINE POSITION TO HELP PRVENT FURTHER BLEEDING FROM LEFT BUTTOCK WOUND. STAFF NURSE, TREVOR TO CALL SURGEON AND INFORM OF BLEEDING WHICH CURRENTLY HAS SUBSIDED. PATIENT INSTRUCTED ON IMPORTANCE OF Q 2 HR REPOSITIONING AND INCREASED CALORIE AND PROTEIN DIET TO PROMOTE HEALING. PATIENT STATES HE UNDERSTANDS. ALSO INSTRUCTED STAFF NURSE TO PLACE ALTERNATE DRESSING IF VAC FAILURE >2 HOURS.
[2020-03-15 13:08] LABS: HEMATOCRIT 24.1 % (42.0-52.0); HEMOGLOBIN 8.3 gm/dL (14.0-18.0); MCH 30.7 pg (26.0-34.0); MCHC 34.3 g/dL (28.0-37.0); MCV 89.5 fL (80.0-100.0); MPV 7.8 fl. (7.2-11.1); RBC 2.69 mil/uL (4.50-6.00); RDW-CV 16.7 % (10.5-14.5); WBC 7.6 thou/uL (4.0-11.0)
[2020-03-15 13:20] LABS: CALCIUM 8.4 mg/dL (8.5-10.1); CREATININE 1.1 mg/dL (0.6-1.3); POTASSIUM 3.5 mmol/L (3.5-5.1)
--- NOTE | 2020-03-15 17:40 | NUR ---
ALERT AND ORIENTED X4 BUT SLOW TO RESPOND AT TIMES. LEFT BUTTOCK AREA NOTED TO BE BLEEDING AFTER DR DILL LEFT HERE THIS AM. DRESSING REINFORCED WITH ABD PAD. AREA STILL NOTED TO BE BLEEDING WHEN WOUND NURSE HERE THIS AM. WOUND NURSE ABLE TO GET WOUND TO STOP BLEEDING AFTER USING SIVERNITRATE AND HOLD PRESSURE ON AREA. NEW DRESSING APPLIED TO LEFT BUTTOCK. THERE IS ONLY ABOUT 0.5CM AREA OF RED DRAINAGE NOTED ON NEW DRESSING AT 1645. WILL CONTINUE TO PASS ON TO MONITOR. WOUND VAC APPLIED TO 2 WOUNDS ON RIGHT BUTTOCK. WOUND VAC HAS GOOD SEAL WITH NO LEAKS AT THIS TIME. PATIENT TURNED FROM SIDE TO SIDE IN SPECIALTY AIR BED. PO PAIN MEDICATION GIVEN AND HELPFUL. ROHO CUSHION ORDERED TODAY. HAS OSORIO CATHETER PATENT WITH CLEAR YELLOW URINE. USES CALL LIGHT WHEN NEEDING ASSIST. UP WITH 2 ASSIST, GAIT BELT AND WALKER THIS AM. FALL PRECAUTIONS IN PLACE. BED ALARM AND CHAIR ALARM USED.
[2020-03-15 19:15] VITALS: BP 120/67
--- NOTE | 2020-03-16 01:11 | NUR ---
ASSUMED CARE AT 1930. PATIENT ON SPECIALTY BED. WOUND VAC INTACT. DRESSING TO BUTTOCKS INTACT. ASSISTED WITH TURNS. REFUSES WEDGE, BUT WILL ALLOW PILLOW TO OFFLOAD BUTTOCKS. REFUSES PILLOW UNDER HEELS, BUT HEELS INTACT. OSORIO DRAINING [place] URINE TO DD. APPEARS A LITTLE STRONGER THAN LAST WEEK. TAKES PILLS WHOLE WITH WATER WITHOUT DIFF. NO C/O PAIN. HOURLY ROUNDS CONTINUE. BED ALARM ON. CALL LITE IN REACH.
--- NOTE | 2020-03-16 05:28 | NUR ---
SLEPT OFF AND ON. ASSISTED WITH TURNS. LAID ON SIDE, BUT DECLINED LYING ON RT SIDE. TWO AREAS OF AIR LEAKS PATCHED ON WOUND VAC. MAINTAINING 125 MMHG NOW. NO C/O PAIN. HOURLY ROUNDS CONTINUE. BED ALARM ON. CALL LITE IN REACH.
[2020-03-16 08:00] VITALS: BP 150/75
--- NOTE | 2020-03-16 16:06 | NUR ---
PT A&Ox4. VITALS STABLE. ON RA. WOUNDS C/D/I. WOUND VAC IN PLACE. EATING MINIMAL AMOUNT OF MEALS, ENCOURAGING MEAL REPLACEMENT SHAKES. UP WITH 1. TO BE IN CHAIR NO LONGER FOR 1 HOUR AT A TIME. THIS PT HAS A INTERRUPTED STAY AND THIS ACCOUNT IS LINKED TO THE FOLLOWING . FALL PRECAUTIONS IN PLACE. CALL LIGHT WITHIN REACH. WILL CONTINUE TO MONITOR.
--- NOTE | 2020-03-16 16:26 | NUR ---
This pt is interrupted stay and this accoutn linked to [id number]. SW called pt in preparation for team conference tomorrow. Pt asked about special diet, DME needs, and family training. SW to present to team tomorrow and will update pt tomorrow after team conference.
[2020-03-16 19:15] VITALS: BP 112/74
--- NOTE | 2020-03-16 20:40 | NUR ---
SITTING UP IN BED WATCHING TV. ON A SPECIALTY BED. OSORIO TO DEPENDENT DRAINAGE. WOUND VAC INTACT. DENIES PAIN. CALL LIGHT WITHIN REACH. PATIENT DECLINED OFFER OF A PROTEIN SHAKE BUT DID AGREE TO AN ICE CREAM. THIS PATIENT IS AN INTERRUPTED STAY CONNECTED TO ACCOUNT [id number].
--- NOTE | 2020-03-17 04:41 | NUR ---
RESTED QUIETLY. HOURLY ROUNDING IN PROGRESS.
[2020-03-17 09:29] VITALS: BP 145/76
[2020-03-17 09:31] VITALS: BP 158/71
--- NOTE | 2020-03-17 09:34 | NUR ---
WOUND NURSE: PATIENT SEEN FOR DRESSING CHANGE TO ALL SACROCOCCYGEAL AND BUTTOCK WOUNDS PRESCRIBED USING MASTISOL, GRANUFOAM, TRANSPARENT DRAPE, TRAC PAD ON RIGHT AND AQUACEL AG UNDER BORDERED FOAM ON LEFT. SETTINGS ON VAC ULTA 125MMHG CONTINUOUS NEG PRESSURE. TOLERATED WELL BY PATIENT. PATIENT PLACED ON HIS LEFT SIDE. THIS ACCOUNT IS LINKED TO OLD ACCOUNT D/T INTERUPTED STAY. [id number].
[2020-03-17 15:10] LABS: CREATININE 1.2 mg/dL (0.6-1.3); MAGNESIUM 1.6 mg/dL (1.8-2.4); PHOSPHORUS* 3.6 mg/dL (2.5-4.9); POTASSIUM 3.4 mmol/L (3.5-5.1)
--- NOTE | 2020-03-17 16:07 | NUR ---
PT A&Ox4. VITALS STABLE. WOUND VAC AND DRESSING CHANGED BY WOUND CARE TODAY. MINIMAL PAIN, CONTROLLED WITH TYLENOL. ENCOURAGE NUTRITION INTAKE. UP WITH 1 MIN ASSIST. FALL PRECAUTIONS IN PLACE. CALL LIGHT WITHIN REACH. WILL CONTINUE TO MONITOR. THIS PATIENT IS AN INTERRUPTED STAY AND THIS ACCOUNT IS LINKED TO THE FOLLOWING .
--- NOTE | 2020-03-17 18:01 | NUR ---
PT ATE 70% OF DINNER.
[2020-03-17 19:00] VITALS: BP 143/63
--- NOTE | 2020-03-18 06:15 | NUR ---
PT VOICED SLEEPING BETTER THIS SHIFT. MEDS GIVEN PER EMAR. ISOLATION PRECAUTION IN PLACE. WOUND VAC. Q2 TURN. FALL PRECAUTION IN PLACE. CALL LIGHT WITHIN REACH. HOURLY ROUNDINGS MADE. WILL CONTINUE TO MONITOR.
[2020-03-18 08:00] VITALS: BP 152/76
--- NOTE | 2020-03-18 15:48 | NUR ---
ASSUMMED CARE OF PT AT 0730, PT ALERT AND ORIENTED, FATIGUES EASILY, TRANSFERS WITH MOD ASSIST,GB WALKER, OSORIO PATENT, ISOATION PRECAUTIONS MAINTAINED, WD VAC INTACT AT 125MM PRESSURE, MEDICATED X 1 FOR DISCOMFORT, BM X 1 THIS SHIFT, CHAIR/BED ROUTINE MAINTAINED THIS SHIFT, K+ AND mG+ LEVELS LOW AND REPLACED THIS SHIFT, PARTICIPATED IN ALL THERAPIES, HOULRY ROUNDING COMPLETED, ASSESSMENT COMPLETE, WILL CONTINUE TO MONITOR.
--- NOTE | 2020-03-18 17:25 | NUR ---
SW spoke with pt to review team conference summary and plan for reteam with possible dc end of next week but will determine for certain during team conference next Sunday. Pt in agreement with plan. SW to continue to follow to assist with safe dc planning, family training, RW, HH to be arranged.
[2020-03-18 19:54] VITALS: BP 149/75
[2020-03-19 04:45] LABS: MPV 7.6 fl. (7.2-11.1); WBC 5.6 thou/uL (4.0-11.0)
[2020-03-19 04:47] LABS: HEMATOCRIT 23.6 % (42.0-52.0); MCHC 33.7 g/dL (28.0-37.0); MCV 88.9 fL (80.0-100.0); RBC 2.66 mil/uL (4.50-6.00); RDW-CV 16.5 % (10.5-14.5)
[2020-03-19 04:49] LABS: ALBUMIN 2.4 g/dL (3.4-5.0); CALCIUM 8.5 mg/dL (8.5-10.1); CREATININE 1.1 mg/dL (0.6-1.3); MAGNESIUM 1.6 mg/dL (1.8-2.4); PHOSPHORUS* 3.4 mg/dL (2.5-4.9); POTASSIUM 3.8 mmol/L (3.5-5.1)
--- NOTE | 2020-03-19 06:32 | NUR ---
PT ALERT AND ORIENTED. PT SLEPT WELL THIS SHIFT. MEDS GIVEN PER EMAR. MG+ REPLACEMENT IN PLACE PER PROTOCOL. ISOLATION PRECAUTION IN PLACE. FALL PRECAUTION IN PLACE. CALL LIGHT WITHIN REACH. HOURLY ROUNDINGS MADE. WILL CONTINUE TO MONITOR.
[2020-03-19 08:30] VITALS: BP 132/75
--- NOTE | 2020-03-19 11:50 | NUR ---
WOUND NURSE: PATIENT SEEN FOR FOLLOW UP WOUND VAC DRESSING CHANGE TO RIGHT SACROCOCCYGEAL AND BUTTOCK WOUND: CLEANSED WITH WOUND CLEANSER AND GAUZE, APPLIED SKIN PREP TO INTACT PERIWOUND TISSUE. VAC DRESSING APPLIED USING GRANUFOAM, TRANSPARENT DRAPE, AND TRAC PAD PER PROTOCAL USING BRIDGING TECHNIQUE. SETTINGS: 125MMHG CONTINUOUS NEG PRESSURE INTENSITY HIGH. LEFT BUTTOCK CLEANSED WITH WOUND CLEANSER AND GAUZE. PACKED WITH AQUACEL AG UNDER BORDERED FOAM DRESSING. ABOVE TREATMENT TOLERATED WELL AND WITHOUT COMPLAINTS OF PAIN. REPORTS HE WAS PREMEDICATED ABOUT 30 MIN PRIOR TO THIS DRESSING CHANGE. PATIENT REMAINS ON Q 2 HR REPOSITIONING SCHEDULE AND LOW AIRLOSS MATTRESS. RIGHT SACROCOCCYGEAL MEASUREMENTS ARE 6.2 X 5.3 X 0.3 CM. CONTAINS 30% FIRMLY ADHERING YELLOW SLOUGH AND 70% RED GRANULATION TISSUE. RIGHT BUTTOCK: 4.8 x 4.5 x 0.7 cm. CONTAINS 30% FIRMLY ADHERING YELLOW SLOUGH AND 70% RED GRANULATION TISSUE. LEFT BUTTOCK: 1.5 X 1.8 X 0.9 CM. CONTAINS 50% FIRMLY ADHERING YELLOW SLOUGH AND 50% RED GRANULATION TISSUE.
--- NOTE | 2020-03-19 15:33 | NUR ---
ASSUMMED CARE OF PT AT 0730, PT ALERT AND ORIENTED, PT DENIES PAIN, PT TRANSFERS WITH ASSIST OF 1, FATIGUES EASILY, MEDICATED FOR PAIN PRIOR TO DRESSING CHANGES PER WOUND NURSE THIS AM, WD VAC INTACT, MG+ LEVEL LOW, REPLACED,ISOLATION MAINTAINED, MET IN GARDEN THIS PM, PRECAUTIONS MAINTAINED, PARTICIPATED IN ALL THERAPIES, HOURLY ROUNDING COMPLETED, ASSESSMENT COMPLETE, WILL CONTINUE TO MONITOR.
[2020-03-19 19:40] VITALS: BP 136/68
--- NOTE | 2020-03-19 20:20 | NUR ---
SITTING UP IN BED WATCHING TV. TOOK MEDICATIONS WHOLE WITH WATER. SNACK PROVIDED. CALL LIGHT WITHIN REACH. WOUND VAC INTACT. OSORIO INTACT.
--- NOTE | 2020-03-20 05:52 | NUR ---
RESTED QUIETLY. HOURLY ROUNDING IN PROGRESS.
[2020-03-20 07:00] VITALS: BP 167/79
--- NOTE | 2020-03-20 18:12 | NUR ---
PT A&Ox4. VITALS STABLE. OSORIO PATENT. WOUND VAC PATENT. DRESSING C/D/I. TOLERATING DIET. MINIMAL PAIN, CONTROLLED WITH TYLENOL. UP WITH [address] ST[address] PRE[address]UTIONS [address] PL[address]. CALL LIGHT WITHIN REACH. WILL CONTINUE TO MONITOR.
--- NOTE | 2020-03-21 06:10 | NUR ---
PATIENT SLEPT MOST OF THE NIGHT. OSORIO REMAINS TO DEPENDENT DRAIN. WOUND VAC REMAINS IN PLACE TO RIGHT BUTTOCK WOUNDS. WILL CONTINUE TO MONITOR.
[2020-03-21 07:36] VITALS: BP 152/77
--- NOTE | 2020-03-21 17:14 | NUR ---
PT A&Ox4. VITALS STABLE. TOLERATING DIET. DENIED PAIN. WOUND VAC IN PLACE AND PATENT. DRESSING C/D/I. UP WITH 1 TO CAMMODE/CHAIR. FALL PRECAUTIONS IN PLACE. CALL LIGHT WITHIN REACH. WILL CONTINUE TO MONITOR.
[2020-03-21 19:00] VITALS: BP 154/79
--- NOTE | 2020-03-21 19:50 | NUR ---
RESTING QUIETLY IN BED. WOUND VAC INTACT. OSORIO TO DEPENDENT DRAINAGE WITH CLEAR/[place] URINE. ON SPECIALTY BED. IN CONTACT ISOLATION FOR MRSA OF WOUND ON BUTTOCK. TOOK MEDICATIONS WHOLE ALL AT ONCE WITH WATER. SNACK PROVIDED. CALL LIGHT WITHIN REACH.
--- NOTE | 2020-03-22 04:56 | NUR ---
RESTED QUIETLY. HOURLY ROUNDING IN PROGRESS.
[2020-03-22 07:58] VITALS: BP 167/79
--- NOTE | 2020-03-22 13:50 | NUR ---
WOUND NURSE: PATIENT SEEN FOR FOLLOW UP ASSESSMENT AND DRESSING CHANGE PRESCRIBED. WOUND VAC DRESSING APPLIED TO RIGHT SACROCOCCYGEAL AND BUTTOCK WOUND USING GRANUFOAM, TRANSPARENT DRAPE, TRAC PAD. BOTH WOUNDS BRIDGED TOGETHER. SETTINGS: 125MMHG CONTINUOUS NEG PRESSURE INTENSITY HIGH. RIGHT BUTTOCK WOUND TREATED WITH AQUACEL AG UNDER BORDERED FOAM DRESSING. PATIENT REINSTRUCTED ON NUTRITIONAL REQUIREMENTS AND IMPORTANCE OF FREQUENT REPOSITIONING AND REMAINING OFF WOUNDS MUCH POSSIBLE. WOUNDS WERE EXAMINED BY DR. DE LA CRUZ DURING DRESSING CHANGE.
[2020-03-22 19:15] VITALS: BP 125/64
--- NOTE | 2020-03-22 20:12 | NUR ---
PATIENT ALERT AND ORIENTED X4. FORGETFUL AT TIMES. UP WITH 1 ASSIST,GAIT BELT AND WALKER. DENIES NEED FOR PAIN MEDICATION WHEN OFFFERED. REMAINS ON ISOLATION FOR MRSA IN WOUNDS ON BUTTOCKS. WOUND VAC REMAINS IN PLACE OVER RIGHT BUTTOCK AND SACRUM. DRY DRESSING TO LEFT BUTTOCK. OSORIO CATHETER PATENT WITH CLEAR YELLOW URINE. PATIENT ONLY UP FOR 1 HOUR AT A TIME AND THEN IN BED FOR AT LEAST 2 HOURS BEFORE BEING GOTTEN BACK UP. USES CALL LIGHT WHEN NEEDING ASSIST. FALL PRECAUTIONS IN PLACE. THIS PATIENT LINKED WITH INTERUPTED STAY #[id number].
--- NOTE | 2020-03-23 07:23 | NUR ---
PATIENT HAS SLEPT WELL THROUGHOUT THE NIGHT. VSS ON RA. NO C/O PAIN. MEDICATIONS GIVEN ORDERED AND CHARTED. ASSESSMENT CHARTED. WOUND VAC TO SACRUM/RIGHT BUTTOCK IS IN PLACE TO SUCTION. DRESSING TO LEFT BUTTOCKS IS C/D/I. OSORIO TO DEPENDENT DRAINAGE WITH CLEAR/YELLOW URINE OUTPUT. PATIENT REMAINS IN CONTACT ISOLATION D/T MRSA. FALL PRECAUTIONS IN PLACE AND HOURLY ROUNDS MADE. WILL CONTINUE WITH THERAPIES AND NURSING TO MONITOR.
[2020-03-23 08:00] VITALS: BP 167/85
--- NOTE | 2020-03-23 15:42 | NUR ---
ASSUMMED CARE OF PT AT 0730, PT ALERT AND ORIENTED, TRANSFERS WITH ASSIST OF 1, GB WALKER, UP IN CHAIR FOR 1-2 HOUR INTERVALS AND IN BED BETWEEN THERAPIES, DENIES PAIN, ISOLATION PRECAUTIONS MAINTAINED, WD VAC INTACT AT 125 MMHG, OSORIO PATENT AND DRAINING YELLOW URINE, PT ON SPECIALTY BED, TAKING FOOD AND FLUIDS WELL, PARTICIPATED IN ALL THERAPIES, HOURLY ROUNDING COMPLETED, ASSESSMENT COMPLETE, WILL CONTINUE TO MONITOR.
[2020-03-23 19:00] VITALS: BP 145/71
--- NOTE | 2020-03-24 02:28 | NUR ---
PATIENT'S BED BEGAN ALARMING AT 0100 WITH MESSAGE TO CALL [phone] FOR REPAIR. MARY FROM [facility] CALLED AND SHE PUT OUT MESSAGE TO REPAIR PERSON TO CALL. SECOND CALL PLACED TO [facility] AFTER ONE HOUR AFTER NO RETURN CALL. REPAIR PERSON CALLED WITH DIRECTIONS ON HOW TO FIX BED. BED RESET AND WORKING AT THIS TIME. REPAIR MAN SAID TO CALL AGAIN IF BED QUIT WORKING. WILL CONTINUE TO MONITOR.
--- NOTE | 2020-03-24 04:47 | NUR ---
PATIENT SLEPT WELL DURING THIS SHIFT. PT ASSISTED WITH REPOSITIONS. PT WITH WOUND VAC TO BUTTOCKS. WOUND VAC DSG INTACT AND RUNNING. SPECIALTY BED WORKING OK. PT WITH OSORIO TO DEPENDENT DRAIN. PT DENIES PAIN. FREQUENTLY USED ITEMS AND CALL LIGHT WITHIN REACH. SIDERAILS UPX2 AND BED ALARM ON. PT REMAINS IN CONTACT ISOLATION. WILL CONTINUE TO MONITOR.
[2020-03-24 08:28] VITALS: BP 151/80
--- NOTE | 2020-03-24 08:55 | NUR ---
JASEN LOPEZ FOR 03/23/20 @3360-CALL FROM PT.'S [place]. SHE SAID HER GOT A LETTER ABOUT HIPPA PRIVACY FROM . ADDRESS WAS [facility] IN [place]. SHE WAS CONFUSED IT HAD ON IT. CM LOOKED THROUGH [employer] DURING HOPSITAL STAY. /HEMATOLOGY SAW HIM. EXPLAINED THAT WAS HIS OFFICE ADDRESS AND HE IS AFFILIATED WITH . SHE WAS GLAD TO KNOW AND SAID SHE WOULD SIGN IT AND SEND IT BACK TO OFFICE. ASKED HER IF SHE HAD ANY CONCERNS FOR TEAM CONF.TO BE HELD TOMORROW. SHE SAID WOULD LIKE TO KNOW WHEN HER MIGHT BE DISCHARGED. SHE WILL NEED A COUPLE OF DAYS TO GET THINGS READY AT HOME. TALKED TO HER ABOUT HIS P.T. PROGRESS. ASKED HER TO CALL HIS NURSE AND SHE MIGHT BE ABLE TO GIVE MORE INSIGHT AT THIS TIME.
--- NOTE | 2020-03-24 15:38 | NUR ---
ASSUMMED CARE OF PT AT 0730, PT ALERT AND ORIENTED, TRANSFERS WITH MIN ASSIST GB WALKER, DENIES PAIN, TAKING FOOD AND FLUIDS WELL, DRESSING AND WD VAC CHANGED PER WD NURSE, JO DISCONTINUED AT 1515, EDUCATED PT ON INCREASING FLUIDS, BLADDER SCAN AND ST CATHING, PT STATES HAD BM TODAY, ISOLATION MAINTAINED, PARTICIPATED IN ALL THERAPIES, HOURLY ROUNDING COMPLETED, ASSESSMENT COMPLETE, WILL CONTINUE TO MONITOR.
--- NOTE | 2020-03-24 17:00 | NUR ---
SW called pt and reviewed team conference summary and plan for at least one more week on inpt rehab with reassess of length of stay during team conference next Sunday. Pt/family in agreement with plan. Interrupted stay to be linked to [id number]. SW to continue to follow to assist with safe dc planning.
[2020-03-24 20:38] VITALS: BP 135/67
--- NOTE | 2020-03-25 05:19 | NUR ---
PATIENT SLEPT WELL DURING THIS SHIFT. OSORIO CATHETER REMOVED AT END OF DAY SHIFT AND CHECKED WITH PATIENT TO SEE IF HE NEEDED TO STAND TO VOID. PT UNABLE TO STAND BY BEDSIDE BUT WANTED TO GO TO BATHROOM TO TRY. PT UP WITH GAIT BELT AND WALKER AND ASSIST OF ONE TO BATHROOM. PT VOIDED 350ML OF CLEAR YELLOW URINE. BLADDER SCAN PRIOR TO VOIDING REVEALED 475ML IN BLADDER. PT ASSISTED BACK TO BED. PT ABLE TO REMOVE SHOES AND LIFT LEGS IN BED. PT ASSISTED WITH TURNS. WOUND VAC DSG ON BUTTOCKS C/D/I AND WVAC WORKING. PT IS ON SPECIALTY MATTRESS WITH TWO SIDERAILS UP AND BED ALARM ON. FREQUENTLY USED ITEMS WITHIN REACH. PT DENIES NEEDS AT THIS TIME. PT REMAINS IN CONTACT ISOLATION. WILL CONTINUE TO MONITOR.
[2020-03-25 08:00] VITALS: BP 135/73
--- NOTE | 2020-03-25 15:36 | NUR ---
WOUND NURSE: SPOKE WITH ONE OF THE THERAPISTS TAKING CARE OF PATIENT AND WORKED OUT A TIME FOR PATIENT TO HAVE WOUND VAC DRESSING CHANGE DONE TOMORROW AT 14:15 PM.
--- NOTE | 2020-03-25 18:38 | NUR ---
PATIENT A&OX4. VSS. LUNG SOUNDS CLEAR. HEART SOUNDS REGULAR/TACHY. PATIENT HAS WOUND VAC TO RIGHT BUTTOCK. PATIENT DOES NOT HAVE C/O PAIN. OSORIO PULLED YESTERDAY. PATIENT ABLE TO URINATE ON OWN. PATIENT IN ISOLATION FOR MRSA. NOTE, PATIENT HAS TWO MED REC NUMBERS. "THIS PATIENT IS AN INTERRUPTED STAY AND THIS ACCOUNT IS LINKED TO THE FOLLOWING ACCOUND NUMBER [id number].
[2020-03-25 19:48] VITALS: BP 141/70
--- NOTE | 2020-03-25 20:15 | NUR ---
RESTING QUIETLY IN SPECIALTY BED. WOUND VAC TO BUTTOCK INTACT. DENIES DISCOMFORT. TOOK MEDICATIONS WHOLE ALL AT ONCE WITH WATER. SNACK PROVIDED.
--- NOTE | 2020-03-26 05:44 | NUR ---
UP X ONE DURING THE NIGHT TO THE BATHROOM TO VOID. HOURLY ROUNDING IN PROGRESS.
[2020-03-26 08:00] VITALS: BP 115/70
--- NOTE | 2020-03-26 16:13 | NUR ---
WOUND VAC DRESSING REMOVED AND REAPPLIED PER PROTOCAL. 2 WOUNDS BRIDGED TOGETHER AND BRIDGED AWAY FROM WOUNDS THEN TRAC PAD ATTACHED. SEE DOCUMENTAIN UNDER INTERVENTIONS. PATIENT REINSTRUCTED ON IMPORTANCE OF NUTRIENT DENSE DIET AND OFF LOADING WOUNDS TO PROMOTE HEALING. STATES HE UNDERSTANDS.
--- NOTE | 2020-03-26 18:42 | NUR ---
ALERT AND ORIENTED X4 FORGETFUL AT TIMES. UP WITH 1 ASSIST, GAIT BELT AND WALKER. GIVEN PO PAIN MEDICATION FOR DRESSING CHANGES ON BUTTOCK. NEW WOUND VAC DRESSING APPLIED. ON SPECIALTY MATTRESS. UP FOR ONLY 1 HOUR AT A TIMES AND IN BED FOR AT LEAST 2 HOURS BETWEEN BEING UP. USES CALL LIGHT WHEN NEEDING ASSIST. FALL PRECAUTIONS IN PLACE. INTERRUPTED STAY LINKED WITH #[id number].
[2020-03-26 20:14] VITALS: BP 143/70
--- NOTE | 2020-03-27 00:39 | NUR ---
ALL OF THE DOCUMENTATION BY THIS NURSE CONNECTED TO ACCOUNT [id number]. ASSUMED CARE AT 1930. PATIENT RESTING IN BED. TURNS SELF BUT NEEDS REMINDERS. UP WITH ONE, GAIT BELT, WALKER. AMB TO TOILET PRN. WOUND VAC INTACT, DRESSINGS TO BUTTOCKS INTACT. TAKES PILLS WHOLE WITH WATER. NO C/O PAIN. TAKEKS PILLS WHOLE WITH WATER. VOIDS PER URINAL. HOURLY ROUNDS CONTINUE. BED ALARM ON. CALL LITE IN REACH.
--- NOTE | 2020-03-27 05:42 | NUR ---
SLEPT OFF AND ON. VOIDED AND HAD BM PER TOILET. WOUND VAC CONTINUES AT 125 MMHG. NO C/O PAIN. HOURLY ROUNDS CONTINUE. BED ALARM ON. CALL LITE IN REACH.
[2020-03-27 08:23] VITALS: BP 146/80
--- NOTE | 2020-03-27 16:28 | NUR ---
ALERT AND ORIENTED X4. UP WITH STAND BY ASSIST, GAIT BELT AND WALKER TO BATHROOM. DENIES NEED FOR PAIN MEDICATION. WOUND VAC REMAINS IN PLACE AND WORKING OVER RIGHT BUTTOCK AND SACRUM WOUND. DRESSING DRY AND INTACT OVER LEFT BUTTOCK. TAKES PILLS WITHOUT DIFFICULTY. PATIENT STATED HE WAS UP IN ROOM WITHOUT ASSIST. PATIENT INSTRUCTED TO USE CALL LIGHT WHEN NEEDING ASSIST. BED ALARM SET.
[2020-03-27 19:45] VITALS: BP 130/55
--- NOTE | 2020-03-27 22:57 | NUR ---
THIS DOCUMENTATION IS AN INTERRUPTED STAY AND THIS ACCOUT IS LINKED TO ASSUMED CARE AT 1930. PATIENT RESTING IN BED. TURNS SELF, BUT NEEDS REMINDERS TO TURN. EDUCATION REINFORCED TO OFF LOAD BUTTOCKS TO IMPROVE WOUND HEALING. TAKES PILLS WHOLE WITHOUT DIFF. WOUND VAC AT 125 MMHG. REINFORCED EDUCATION REGARDING FALL PRECAUTIONS AND NEED FOR ASSIST WITH WOUND VAC MACHINE WHILE WALKING. VOIDS PER TOILET. NO C/O PAIN. HOURLY ROUNDS CONTINUE. BED ALARM ON. CALL LITE IN REACH.
--- NOTE | 2020-03-28 06:09 | NUR ---
RESTED IN BED MOST OF THE NIGHT. STATES HIS USUAL SLEEPING PATTERN BEFORE GETTING SICK WAS TO GO TO BED AROUND 2300 AND WAKE UP AROUND 0330. ALLOWED PATIENT TO VENTILATE AND TRY TO PIECE TOGETHER EVENTS THAT HE REMEMBERS. STATES THE REASON HE DIDN'T WANT TO LIE ON HIS SIDE WHEN HE FIRST GOT UP HERE WAS BECAUSE HE REMEMBERED WHEN HE WAS IN ICU AND HE COULDN'T TOLERATED LYING ON HIS SIDE BECAUSE HE WOULD DE SAT, AND ALTHOUGH HE DIDN'T QUITE UNDERSTAND WHAT WAS HAPPENING THEN, HE WAS RELUCTANT TO LIE ON HIS SIDE. EDUCATED ON EVENTS ASSOCIATED WITH THIS MEMORY, VERBALIZED UNDERSTANDING AND IS NOT RELUCTANT TO LIE ON HIS SIDE.
[2020-03-28 08:23] VITALS: BP 141/75
--- NOTE | 2020-03-28 17:53 | NUR ---
ACCOUNT LINKED WITH PRIOR . ALERT AND ORIENTED X4. UP WITH STAND BY ASSIST, GAIT BELT AND WALKER. DENIES NEED FOR PAIN MEDICATION. VOIDING WITHOUT DIFFICULTY. REMAINS ON CONTACT ISOLATION FOR MRSA. WOUND VAC PATENT AND COVERING RIGHT BUTTOCK AND SACRUM WOUND. DRY DRESSING OVER LEFT BUTTOCK WOUND. USES CALL LIGHT WHEN NEEDING ASSIST. FALL PRECAUTIONS IN PLACE. BED ALARM AND CHAIR ALARM USED.
[2020-03-28 20:00] VITALS: BP 132/63
--- NOTE | 2020-03-28 22:40 | NUR ---
THIS PATIENT IS AN INTERRUPEDSTAY AHD THIS ACCOUNT IS LINKED TO ASSUMED CARE AT 1930. PATIENT RESTING IN BED. TURNS SELF, AND LIES ON SIDE OFTEN. WOUND VAC INTACT, 125 MM HG, DRAINING DARK RED LIQUID. NO REAL INCREASE SINCE CHANGE OF SHIFT. DRESSING TO BUTTOCKS C/D/I. TAKES PILLS WHOLE WITH WATER. VOIDS PER TOILET. UP WITH GAIT BELT, WALKER, SBA. DENIES PAIN.
--- NOTE | 2020-03-29 05:39 | NUR ---
SLEPT MOST OF THE NIGHT. SET OFF BED ALARM BY SITTING ON THE SIDE OF THE BED, BUT DID NOT RISE. UP WITH SBA, GAIT BELT, WALKER, WOUND VAC/TUBING. NURSING HELPS WITH WOUND VAC AND TUBING WHILE AMBULATING. VOIDS PER TOILET, DOES OWN CARES. MOVES WELL IN BED. CHANGES POSIITON PER SELF. WOUND VAC DRAINING DK RED FLUID, ABOUT THE SAME BEGINNING OF SHIT. NO C/O PAIN. HOURLY ROUNDS CONTINUE. BED ALARM ON. CALL LITE IN REACH.
[2020-03-29 07:48] VITALS: BP 133/66
--- NOTE | 2020-03-29 14:04 | NUR ---
WOUND NURSE: PATIENT REVISITED TODAY FOR WOUND VAC DRESSING CHANGE AND FOLLOW UP ASSESSMENT. LEFT BUTTOCK WOUND PRESENTS WITH RED, GRANULATION TISSUE IN THE WOUND BED, MODERATE AMOUNT OF SEROUSANGUINOUS DRAINAGE. NO PERIWOUND REDNESS, WARMTH, INDURATION. CLEANSED WITH WOUND CLEANSER AND GAUZE. PACKED LIGHTLY WITH AQUACEL AG UNDER BORDERED FOAM DRESSING. MEASURES 1.3 X 1.5 X 1.0 CM. INCREASE IN MEASUREMENTS MAY REFLECT RESULTS OF AUTOLYTIC DEBRIDEMENT. RIGHT SACROCOCCYGEAL WOUND MEASURES 5.0 X 4.2 X 1.5 CM. WOUND PRESENTS WITH 40% FIRMLY ADHERENT YELLOW SLOUGH AND 60% BEEFY RED GRANULATION TISSUE. THERE IS NO PERIWOUND REDNESS, WARMTH, OR INDURATION. LEFT BUTTOCK WOUND MEASURES 1.3 XC 1.5 X 1.0 CM. THIS TOO MAY MEASURE SLIGHTLY LARGER D/T AUTOLYTIC DEBRIDEMENT OF THE WOUND. CONTAINS 80% BEEFY RED, GRANULATION TISSUE AND 20% FIRMLY ADHERENT YELLOW SLOUGH. THERE IS NO PERIWOUND REDNESS, WARMTH, OR INDURAITON. ALL WOUNDS CLEANSED WITH WOUND CLEANSER AND GAUZE. APPLIED SKIN PREP TO INTACT PERIWOND TISSUE, APPLIED GRANUFOAM CUT TO FIT TO EACH REMAINING WOUND, THEN COVERED WITH TRANSPARENT DRESSING WITH HOLE CUT TO ALLOW SUCTION. WOUNDS WERE BRIDGED TOGETHER AND TRAC PAD PLACED UP ON ANTERIOR THIGH. VAC SETTINGS: 125MMHG CONTINUOUS NEGATIVE PRESSURE, INTENSITY HIGH. PATIENT REINSTRUCTED ON FREQUENT REPOSITIONING AND OFFLOADING WOUNDED AREA AND IMPORTANCE OF HIGHER PROTEIN DIET WITH PROTEIN SUPPLEMENTS. PATIENT STATES HE UNDERSTANDS.
--- NOTE | 2020-03-29 18:46 | NUR ---
ALERT AND ORIENTED X4. UP WITH STAND BY ASSIST, GAIT BELT AND WALKER. DENIES NEED FOR PAIN MEDICATION. WOUND VAC DRESSINGS CHANGED BY WOUND NURSE TODAY. DR VICTOR HERE THIS EVENING AND TIME SET UP FOR SUN. AT [address] VICTOR AND WOUND NURSE TO LOOK AT WOUNDS. WOUND VAC PATENT AT THIS TIME. UP AMBULATING WITH PT IN HALLWAY TODAY. FALL PRECAUTIONS IN PLACE. BED ALARM AND CHAIR ALARM USED. CALL LIGHT WITHIN REACH.
[2020-03-29 19:15] VITALS: BP 109/54
--- NOTE | 2020-03-29 20:00 | NUR ---
RESTING QUIETLY IN BED. WOUND VAC TO RIGHT BUTTOCK INTACT. DENIES PAIN. SNACK PROVIDED. TOOK MEDICAITONS WHOLE WITH WATER. CALL LIGHT WITHIN REACH.
--- NOTE | 2020-03-30 04:30 | NUR ---
RESTED QUIETLY WITH CPAP. HOURLY ROUNDING IN PROGRESS.
[2020-03-30 08:12] VITALS: BP 117/62
[2020-03-30 15:18] VITALS: BP 120/53
--- NOTE | 2020-03-30 16:24 | NUR ---
INTERUPTED STAY [id number]- PATIENT UP TO WHEELCHAIR WITH SBA AND USE OF WALKER AND GAIT BELT. NO COMPLAINTS OF PAIN. WOUND VAC REMAINS IN PLACE TO RIGHT BUTTOCK, MINIMAL DRAINAGE TO CANNISTER. PER DR. DILL POSSIBLE DEBRIDMENT WITH WOUND VAC DRESSING CHANGE TOMORROW, PATIENT AWARE. 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 PATIENT PLACED BACK INTO BED AND VITALS STABLE CHARTED. PATIENT REQUESTING APPLE JUICE. THIS NURSE ROUNDED ON PATIENT SOON AFTER PLACING BACK INTO BED AND PATIENT OBSERVED TO BE SLEEPING.
--- NOTE | 2020-03-30 17:04 | NUR ---
SW called pt in preparation for team conference tomorrow and pt just wondering what decision was made about pt wound on his hip? Pt hopeful that it would not delay his dc plan too much longer. Pt and pt anxious to be able to look towards being able to dc home. SW to continue to follow to assist with safe dc planning.
[2020-03-30 19:15] VITALS: BP 109/71
--- NOTE | 2020-03-30 20:05 | NUR ---
INTERRUPTED STAY ACCOUNT [id number]. RESTING QUIETLY IN BED AND WATCHING TV. WOUND VAC TO RIGHT BUTTOCK INTACT. DENIES DISCOMFORT. SNACK PROVIDED. CALL LIGHT WITHIN REACH.
--- NOTE | 2020-03-31 05:51 | NUR ---
INTERRUPTED STAY ACCOUNT [id number]. RESTED [facility]. NO COMPLAINTS VOICED. HOURLY ROUNDING IN PROGRESS.
[2020-03-31 08:31] VITALS: BP 120/63
--- NOTE | 2020-03-31 16:00 | NUR ---
WOUND NURSE: MET WITH SURGEON, DR. KAYLEIGH MD. WHO PERFORMED A DEBRIDEMENT TO 2 OF 3 BUTTOCK WOUNDS BOTH ON THE RIGHT. ON SACROCOCCYGEAL WOUND, ADIPOSE, EPITHELIUM, AND SUBCUTANOUS TISSUE WAS REMOVED USING #10 SCALPEL AND PICKUPS. RIGHT BUTTOCK WOUND WAS DEBRIDED OF ADIPOSE TISSUE WITH SAME INSTRUMENTS. THIS OCCURRED AT 945 TO 10:00. ONCE COMPLETED, WOUND VAC WAS REAPPLIED TO THE SITE AFTER BLEEDING SUBSIDED USING SILVER NITRATE AND PRESSURE FOR 15 MINUTES. USED GRANUFOAM, SKIN PREP, TRANSPARENT DRAPE, AND TRAC PAD. THE WOUNDS WERE BRIDGED TOGETHER. APPLIED AQACEL AG UNDER BORDERED FOAM TO THE LEFT BUTTOCK WOUND. THERE WAS APPROXIMATELY 60ML OF SANGUINOUS DRAINAGE IN THE CANNISTER, I JUST CALLED THE UNIT WHO REPORTS 75ML IN THE CANNISTER NOW. ALL WOUNDS WERE CLEANSED WITH WOUND CLEANSER AND GAUZE.
--- NOTE | 2020-03-31 16:57 | NUR ---
SW called pt to review team conference summary and discuss dc planning. Plan for dc home with and son assistance as needed on Friday 04/06. SW to follow to assist with arranging HH services, wound vac, RW, and finalizing safe dc plan. Family training scheduled for Sunday at 9 am. Pt expressed that she is very thankful for the care provided by everyone at [facility].
--- NOTE | 2020-03-31 18:32 | NUR ---
ASSESSMENT COMPLETED DOCUMENTED THIS MORNING. DR. PERDOMO IN THIS MORNING AND DEBRIDED RIGHT BUTTOCK WOUND WITH ASSISTANCE OF MARTINA TALAVERA RN. WOUND VAC REAPPLIED AND PT TOLERATED WELL. HAS BEEN PROGRESSING WELL WITH THERAPY, ANTICIPATE DC ON SUNDAY AFTER FAMILY TRAINING.
[2020-03-31 19:00] VITALS: BP 135/50
--- NOTE | 2020-04-01 04:15 | NUR ---
PT A&0, MEDS GIVEN ORDERED. NO C/O PAIN. USES URINAL TO VOID. WOUND VAC IN PLACE. DRESSING INTACT. ISOLATION MAINTAINED. NO OTHER CONCERNS AT THIS TIME. WILL CONTINUE TO MONITOR.
[2020-04-01 08:00] VITALS: BP 130/63
[2020-04-01 15:26] VITALS: BP 130/63
--- NOTE | 2020-04-01 15:30 | NUR ---
WOUND CARE NURSE MARTINA TALAVERA RN IN TO SEE PATIENT. DC PREPARATIONS FOR WOUND VAC TO BE SENT HOME INITIATED FOR THE FOLLOWING WOUNDS. 1) LT. BUTTOCK 1.3X1.5X1.0 2) RT. SACRAL 5.0X4.2X1.5 3) RT. BUTTOCK 4.5X3.5X1.0 FOLLOW UP APPT WITH DR. MUSA IN THE [facility] SCHEDULED FOR 04/09/02 AT 10AM, DOCUMENTED ON DC SUMMARY TODAY.
--- NOTE | 2020-04-01 16:43 | NUR ---
WOUND NURSE: COMPLETED INFORMATION FOR PATIENT TO RECEIVE HOME WOUND VAC (ACTIVAC) WHICH WILL NEED SIGNATURE AND APPROVAL BY DR. JONO MD. THIS WAS SHARED WITH ELECTRIC POWERLINE EXAMINER TO FOLLOW UP WITH. PATIENT WILL ALSO NEED TO RECEIVE HOME HEALTH SN FOR WOUND CARE WHEN HE DISCHARGES TO HOME. PATIENT IS SCHEDULED TO BE SEEN IN [facility] ON 04/09/[address] MUSA, , THEN POSSIBLE F/U WITH DR. IVAN MD ON SUBSEQUENT APPT. ALL INFORMATION WAS SHARED WITH THE PATIENT AND HIS NURSE CARING FOR HIME, WELL GEOVANNI ELECTRIC POWERLINE EXAMINER.
--- NOTE | 2020-04-01 18:01 | NUR ---
ASSESSMENT COMPLETED DOCUMENTED THIS MORNING. PATIENT STATES "ITALO DOWN IN THE DUMPS, MY TOLD ME I AM NOT GOING TO GO HOME UNTIL SUNDAY, I REALLY WANTED TO GO HOME TOMORROW." ENCOURAGEMENT GIVEN AND PATIENT CONTINUES TO PARTICIPATE AND PROGRESS WELL. HYDROCODONE 5/325 GIVEN AT 0900 FOR C/O COCCYX SACRAL PAIN WITH RELIEF NOTED. WOUND VAC SECURE WITH GOOD SEAL.
[2020-04-01 19:35] VITALS: BP 135/62
--- NOTE | 2020-04-01 19:40 | NUR ---
RESTING QUIETLY IN BED AND WATCHING TV. IN GOOD SPIRITS. CALL LIGHT AND URINAL WITHIN REACH. SNACK PROVIDED. DENIES DISCOMFORT. WOUND VAC TO BUTTOCK INTACT.
--- NOTE | 2020-04-02 05:09 | NUR ---
INTERRUPTED STAY. ACCOUNT [id number]. RESTED QUIETLY WITH CPAP. USED URINAL DURING THE NIGHT. HOURLY ROUNDING IN PROGRESS.
[2020-04-02 09:10] VITALS: BP 134/62
--- NOTE | 2020-04-02 16:00 | NUR ---
WOUND NURSE: PLANNED TO CHANGE WOUND VAC DRESSING TODAY, BUT WOUND PRESENTED WITH SLIGHT ODOR AND INCREASED TISSUE NECROSIS ALONG THE MEDIAL EDGE OF THE SACRAL WOUND AND ALONG THE PROXIMAL EDGE OF THE RIGHT BUTTOCK WOUND. WOUND EDGES PRESENTED WITH RUBOR, BUT NO ERYTHEMA. THERE IS ALSO SIGNIFICANTLY MORE SANGUINOUS DRAINAGE IN THE WOUND VAC CANNISTER, BUT WAS MARKED EARLY THIS AM AND NO NEW DRAINAGE SINCE. I CALLED DR. DE LA CRUZ PROVIDED DESCRIPTION OF THE WOUND AND REQUESTED A CHANGE IN ORDERS OVER THE WEEKEND. HE APPROVED PLACING VAC ON HOLD OVER THE WEEKEND, CHANGING TO ALTERNATE DRESSING USING DAKINS DAMPENED GAUZE UNDER DRY GAUZE UNDER ABD, SECURED WITH TAPE AND SKIN PREP TO THE PERIWOUND TISSUE. ALSO OBTAINED AEROBIC AND ANEROBIC SWAB C&S FROM THE RIGHT SACROCOCCYGEAL WOUND. PATIENT REPORTING HE IS SPENDING SIGNIFICANT AMOUNT OF TIME SITTING IN ACTIVITIES AND IS UNABLE TO EFFECTIVELY REPOSITION HIMSELF ON THE LOW AIRLOSS MATTRESS. PATIENT WAS STRONGLY ENCOURAGED TO REQUEST ASSISTANCE TO POSITION ON HIS SIDE ONLY AND TO AVOID LYING ON BACK. HE AGREES TO THIS. ALSO CLEANSED ALL WOUNDS WITH WOUND CLEANSER AND GAUZE, LEFT BUTTOCK WOUND APPLIED AQUACEL AG UNDER BORDERED FOAM DRESSING. THIS WOUND WITH 100% PINK AND RED, GRANULATION TISSUE.
--- NOTE | 2020-04-02 18:30 | NUR ---
ALERT AND ORIENTED X4. UP WITH STAND BY ASSIST GAIT BELT AND WALKER. PO PAIN MEDICATION HELPFUL WITH SACRUM PAIN. WOUND NURSE HERE TODAY AND CHANGED DRESSING ORDERS TO BUTTOCK AND SACRUM WOUNDS. FAMILY HERE TODAY TO DO FAMILY TRAINING. PATIENT USES CALL LIGHT WHEN NEEDING ASSIST. FALL PRECAUTIONS IN PLACE. BED ALARM AND CHAIR ALARM USED.
[2020-04-02 20:09] VITALS: BP 135/56
--- NOTE | 2020-04-03 05:22 | NUR ---
INTERRUPTED STAY ATTACHED TO ACCOUNT [id number]. ASSUMED CARE AT 1930. PATIENT LYING IN BED ON HIS SIDE. TAKES PILLS WHOLE WITH WATER. TURNS SELF, BUT NEEDS ASSIST WITH POSITIONING OF PILLOWS TO SUPPORT SIDE LYING. DENIES PAIN. VOIDS PER TOILET. NO BM THIS SHIFT. DRESSING TO COCCYX AND RIGHT BUTTOCKS CHANGED PER NEW ORDERS. PICTURES TAKEN AND POSTED ON CHART. ASSISTED WITH POSITIONING TO LIE ON SIDE. HOURLY ROUNDS CONTINUE. BED ALARM ON. CALL LITE IN REACH.
[2020-04-03 08:32] VITALS: BP 149/67
--- NOTE | 2020-04-03 18:37 | NUR ---
ASSESSMENT COMPLETED DOCUMENTED THIS MORNING. PATIENT HAS BEEN GETTING UP IN HIS ROOM AND AMBULATING TO THE BR WITHOUT CALLING FOR ASSISTANCE, INSTRUCTED PATIENT ON THE IMPORTANCE OF SAFETY AND TO PLEASE CALL FOR NURSING STAFF WHEN HE NEEDS TO GET OOB AND HE VU. SACRAL/COCCYX WOUND DRESSING CHANGED AT 1100 AFTER 1 HYDROCODONE WAS GIVEN.
[2020-04-03 19:54] VITALS: BP 142/62
--- NOTE | 2020-04-04 05:12 | NUR ---
PT ALERT ORIENTED. PT HAS NOT BEEN OOB THIS SHIFT. ON LOW AIR LOSS MATTRESS. SACRAL WOUND DRSGS CHANGED. HYDROCODONE GIVEN ONE HOUR PRIOR TO DRSG CHANGE. PT TURNS HIMSELF IN BED.
--- NOTE | 2020-04-04 18:04 | NUR ---
ASSESSMENT COMPLETED DOCUMENTED THIS MORNING. PATIENT HAS BEEN RESTING QUIETLY IN BED TODAY WITH NO ISSUES OR CHANGES IN CONDITION. WOUND CARE PROVIDED ON SACRAL/COCCYX WOUNDS AT 1100 AND PATIENT TOLERATED WELL.
[2020-04-04 19:35] VITALS: BP 133/62
--- NOTE | 2020-04-05 05:16 | NUR ---
ASSUMED PT CARE AT 1930. PT ALERT AND ORIENTED X4, POLITE AND COOPERATIVE WITH CARES. PT TAKES PILLS WHOLE WITH WAER. CAN TURN SELF. PT ON LOW AIR LOSS MATRESS. VOIDS PER URINAL. NO STOOL THIS SHIFT. DRESSING TO COCCYX AND RIGHT BUTTOCK CHANGED PER ORDERS. PT PREMEDICATED WITH HYDROCODONE BEFORE DRESSING CHANGE PER PT REQUEST. PT ON CONTACT PRECAUTIONS FOR MRSA IN WOUND. PT TO POTENTIALLY DISCHARGED ON SUNDAY. CALL LIGHT IN REACH. BED ALARM ON FOR SAFETY. HOURLY ROUNDING IN PROGRESS, WILL CONTINUE TO MONITOR.
[2020-04-05 08:29] VITALS: BP 129/70
--- NOTE | 2020-04-05 09:23 | NUR ---
WOUND NURSE: WOUNDS REVIEWED WITH DR. IVAN MD. HE APPROVD CHANGE IN WOUND CARE ORDERS TO RIGHT SACURM AND BUTTOCK WOUNDS. RIGHT SACRAL/COCCYGEAL WOUND PRESENTS WITH 50% PINK GRANULATION TISSUE AND 50% FIRMLY ADHERENT YELLOW NECROTIC TISSUE IN THE WOUND BED. THERE IS PERIWOUND BLANCHEABLE REDNESS, NO WARMTH. THE RIGHT BUTTOCK WOUND PRESENTS WITH 90% GRANULATION TISSUE AND 10% YELLOW FIRMLY ADHERENT NECROTIC TISSUE. THE LEFT BUTTOCK WOUND PRESENTS WITH 100% PINK GRANULATION TISSUE. THERE IS A MODERATE AMOUNT OF SEROUSANGUINOUS DRAINAGE ON THE OLD DRESSING AND MINIMAL ACTIVE DRAINAGE FROM THE WOUND POST CLEANSING WITH WOUND CLEANSER AND GAUZE. APPLIED SKIN PREP TO ALL PERIWOUND TISSUE. RIGHT SACRAL AND BUTTOCK WOUNDS WERE TREATED WITH IODOSORB GEL UNDER AQUACEL UNDER BORDERED FOAM DRESSING. THE LEFT BUTTOCK WOUND CONTINUES TO BE TREATED WITH AQUACEL AG UNDER BORDERED FOAM DRESSING. SACRAL WOUND MEASUREMENTS: 5.7 X 5.0 X 2.2 CM; UNDERMINING FROM 10 TO 1 O'CLOCK MEASURING 1.2 CM. RIGHT BUTTOCK WOUND MEASURES 4.5 X 3.7 X 1.5 CM UNDERMINING FROM 9 TO 1 O'CLOCK MEASURING 1.5 CM. LEFT BUTTOCK WOUND MEASURES 1.2 X 1.0 X 0.3 CM.
--- NOTE | 2020-04-05 16:56 | NUR ---
SW continuing to follow through dc. SW to finalize RW order upon dc day. SW confirmed [facility] to issue wound vac at dc. SW discussed HH options with pt previously and SW to arrange pt/family choice of HH upon dc day which is possibly tomorrow pending final orders and medical stability. Family training was Sunday. Account linked to [id number], interrupted stay.
--- NOTE | 2020-04-05 18:35 | NUR ---
ALERT AND ORIENTED X4. UP WITH 1 ASSIST, GAIT BELT AND WALKER. AT 1320 PATIENT WAS WORKING WITH OT DOING ARM EXERCISES WHEN HE C/O THAT HE WAS HAVING CHEST PRESSURE OF 4. B/P CHECK 134/57 PULSE 72 O2 SAT 98%. NO C/O SOA OR PAIN RADIATING ANYWHERE. NO CHANGE IN PAIN WITH MOVEMENT. PAIN LASTED FOR ABOUT 1OMINUTES BEFORE PATIENT STATED IT WAS GONE. DR ORELLANA PAGED AND NOTIFIED. AT 1336 WITH NO NEW ORDERS. LATER PATIENT DID STATE TO STAFF THAT HE WAS HAVING A LITTLE BIT OF PAIN. DR DE LA CRUZ HERE AND NOTIFIED. NEW ORDERS NOTED. CARDIOLOGY PAGED AND NOTIFIED OF CONSULT AND HERE TO SEE PATIENT. DR LEONARD PAGED AND AWAITING CALL BACK REGARDING WOUND CULTURE RESULTS. DR TORRES NOTIFIED OF NO RETURN CALL YET AND NEW ORDERS NOTED FOR IV ANTIBIODICS. DRESSINGS CHANGED BY WOUND NURSE AND DR HASSAN. NEW DRESSING ORDERS NOTED. FALL PRECAUTIONS IN PLACE, USES CALL LIGHT WITHIN REACH
[2020-04-05 19:15] VITALS: BP 137/64
--- NOTE | 2020-04-06 04:51 | NUR ---
ASSUMED PT CARE AT 1930. PT ALERT AND ORIENTED X4, POLITE AND COOPERATIVE WITH CARES. DENIES PAIN, TIGHTNESS TO CHEST OR SOA. VS WNL. IV ABX INFUSED PER ORDERS. PIV TO LEFT FOREARM. TAKES PILLS WHOLE WITH WATER WITHOUT DIFFICULTY. PT UP WITH MIN ASSIST OF ONE TO BATHROOM. NO STOOL BUT DRESSING TO PT COCCYX OFF WHEN PT EXITED BATHROOM. PT ASSISTED TO BED, PICTURES OF COCCYX TAKEN, DRESSING PLACED TO COVER WOUND AND SECURED WITH PAPER TAPE. PT SLEPT MOST OF NIGHT. BED ALARM ON FOR SAFETY. CALL LIGHT IN REACH. HOURLY ROUNDING IN PROGRESS, WILL CONTINUE TO MONITOR.
[2020-04-06 07:59] VITALS: BP 131/66
--- NOTE | 2020-04-06 09:04 | NUR ---
WOUND NURSE: SPOKE WITH TREVOR, NURSE CARING FOR PATIENT AND SHE REPORTS DR. ORELLANA PLACED PATIENT ON IV ROCEPHIN AND VANCOMYCIN FOR BASED ON RESULTS OF WOUND CULTURE TAKEN LAST SUNDAY. I SPOKE WITH GEOVANNI, CLERK ENTRY LEVEL, AND EXPLAINED THAT [facility] NEEDS TO KNOW WHICH HOME HEALTH AGENCY WILL BE SEEING THE PATIENT FOR WOUND VAC CHANGES ONCE HE IS DISCHARGED TO HOME. SHE IS TO FOLLOW UP WITH THIS. ANTICIPATE RESUMPTION OF VAC DRESSING LATER THIS WEEK.
--- NOTE | 2020-04-06 12:47 | EKG ---
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 : 1950 Requested By: Carson Quiles Order Number: [id number] Reading MD: Noe Schwab Measurements Intervals [place] Rate: 75 P: 15 SC: 150 QRS: -10 QRSD: 93 T: 4 QT: 381 QTc: 426 Interpretive Statements Sinus rhythm Left ventricular hypertrophy Baseline wander in lead(s) V5,V6 Compared to ECG 02/06/2020 09:03:06 Left ventricular hypertrophy now present T-wave abnormality no longer present Electronically Signed On 04-06-2020 12:45:34 CDT by Noe Schwab [email or web address] <ELECTRONICALLY SIGNED> By: Noe Schwab MD, FACC 04/06/20 1245 1546 1546 Noe Schwab MD, FAC /EPI
--- NOTE | 2020-04-06 13:26 | NUR ---
SW called and spoke with pt to discuss dc planning and pt now under the impression pt will likely not dc today after all. Pt aware as well. Team conference tomorrow and pt/family hopeful for possible dc tomorrow. LAXMI called [facility] and spoke with Melyssa who approved for RW to be issued upon pt dc day. SW to provide pt/family choice of [facility] the referral and orders upon dc. Pt nurse confirmed pt wound vac has been delivered. Possible that iv abx could change to oral abx at dc. SW to continue to follow to assist with finalizing safe dc plan.
--- NOTE | 2020-04-06 17:32 | NUR ---
ALERT AND ORIENTED X4. UP WITH STAND BY ASSIST, GAIT BELT AND WALKER OR CANE. PATIENT REMINDED TO TURN SIDE TO SIDE IN BED AND STAY OFF OF BACK MUCH POSSIBLE. PATIENT STATED HE HAD A HARD TIME TURNING IN SPECIALTY BED. NEW ORDER RECEIVED TO CHANGE BED TO REGULAR BED TO MAKE IT EASIER FOR PATIENT TO TURN. ID DR NOTIFIED OF WOUND CONDITION, AND MEDICAL DR NOTIFIED OF WOUND CONDITION. ASSISTED WOUND NURSE WITH DRESSING CHANGE TODAY. CONTINUES ON IV ANTIBIODIC WITHOUT ADVERSE REACTIONS OR SIDE EFFECTS. XRAY ORDERED OF WOUND AREA. PAGED SURGEON EARLIER WITH NO RETURN CALL YET. DENIES ANY CHEST PAIN. USES CALL LIGHT WHEN NEEDING ASSIST. FALL PRECAUTIONS IN PLACE. BED ALARM AND CHAIR ALARM USED.
[2020-04-06 19:30] VITALS: BP 109/53
--- NOTE | 2020-04-06 19:55 | NUR ---
IN BED WATCHING TV. IN GOOD SPIRITS. DENIES PAIN. DRESSING ON RIGHT BUTTOCK ABOUT 25% SATURATED WITH YELLOW DRAINAGE. MEPILEX ON LEFT BUTTOCK DRY/INTACT. SNACK PROVIDED. CALL LIGHT WITHIN REACH.
--- NOTE | 2020-04-07 05:57 | NUR ---
DRESSING CHANGE DONE ON RIGHT BUTTOCK DUE TO DRAINAGE. PATIENT WAS COMPLAINT WITH TURNING SIDE TO SIDE THROUGHOUT THE NIGHT. VOIDED PER URINAL. CONTINUES TO DENY PAIN. HOURLY ROUNDING IN PROGRESS.
[2020-04-07 08:53] VITALS: BP 142/62
--- NOTE | 2020-04-07 12:22 | CON ---
[address] [address] CONSULTATION Name: CORAZONANTOINETTE Kraol Room: [address] IN .R.#: [id number] Admission: 03/14/20 Attend Phys: Carson Quiles MD Discharge: Date of : 48 Report #: [id number] THIS REPORT FOR: //name// cc: Noe Chatman MD, David L. MD ~ THIS REPORT FOR: //name// CC: Noe Quiles LOCATION: Rehab Unit. ATTENDING PHYSICIAN: Carson Quiles MD REASON FOR EVALUATION: Recommendation for antibiotic therapy in a patient with sacrococcygeal ulcerations. HISTORY OF PRESENT ILLNESS: Chart reviewed, patient examined. This is a 69-year-old gentleman known to myself, who has had a very complicated course in the recent 2 months. He was hospitalized in mid January with pneumonitis, he has had multiple PEs, was confirmed to have SARS-CoV-2 infection. This required prolonged course of mechanical ventilation of greater than 3-4 weeks. This was complicated by multiorgan dysfunction. He was on dialysis for a period. Apparently, he developed some wounds over the coccyx as well. He had a profound weight loss of greater than 50 pounds. He has been on the Rehab Unit for the last 3 weeks. He has shown improvement. However, he has persistent stage 3-4 wounds over the coccyx. He has undergone debridements. He has been utilizing on and off the wound VAC. Recent cultures had polymicrobial growth including Klebsiella as well as MRSA. He was initiated on therapy with ceftriaxone and vancomycin. At this point, he does have ongoing issues what he describes as soreness. Apparently, he has been maintained a reasonably good appetite. He has had no fevers or chills. Denies any significant pulmonary-related complaints. ALLERGIES: LISTED TO PENICILLIN, SULFA, MELOXICAM. MEDICINES: Include carvedilol, vancomycin, ceftriaxone, mirtazapine, sertraline, albuterol, hydrocodone, paroxetine, multivitamin, atorvastatin, furosemide, fenofibrate, losartan, levothyroxine, pantoprazole, amlodipine, rivaroxaban, albuterol. PAST MEDICAL HISTORY: Includes hypertension, hyperlipidemia, known atherosclerotic coronary artery disease, recent history of severe COVID-19, pneumonia with sepsis, pulmonary emboli. SOCIAL HISTORY: Former smoker. [place] [address] CONSULTATION Name: ANTOINETTE CHANDRA Room: [address] IN [facility]#: [id number] Admission: 03/14/20 Attend Phys: Carson Quiles MD Discharge: Date of : 48 Report #: [id number] FAMILY HISTORY: Noncontributory. REVIEW OF SYSTEMS: Otherwise, unremarkable 10-point review of systems. PHYSICAL EXAMINATION: GENERAL: He is alert, cooperative, appropriate, appears somewhat chronically ill. He is still mildly undernourished, I believe. VITAL SIGNS: Temperature 97.5, pulse 101, respirations 19, blood pressure 131/66. SKIN: Warm, dry. No rashes. HEENT: Normocephalic. Extraocular muscles are intact. NECK: Supple. LUNGS: Few scattered crackles at the bases. HEART: Regular. Borderline tachycardic. I do not appreciate murmur. ABDOMEN: Soft, nontender. SKIN: The photographs of the wounds noted the stage 2 on the left buttock and deeper stage 3-4 on the right x 2. They are generally clean. Appreciate significant necrosis. At this point, there is some moderate degree of inflammation. LABORATORY DATA: Most recent chest x-ray shows significant improvement in the appearance of the chest compared to prior exam; the lungs are now clear. Culture with growth of Klebsiella and MRSA. ASSESSMENT AND PLAN: Sacrococcygeal ulcerations. At this point, he is following at the [facility] as he can utilize the wound VAC. We will discuss with the wound care nurse and/or Dr. Olson. Indeed if there is no evidence of osteo, clinically, I think it is reasonable to transition to oral therapy. He will be closely watched. He was encouraged to optimize the nutritional status. We will see him in the W[facility] Care [facility] and make adjustments as needed. <ELECTRONICALLY SIGNED> By: Ramez Almendarez MD 04/07/20 1222 1056 [id number] Almendarez MD /nt
--- NOTE | 2020-04-07 13:59 | NUR ---
Nutrition: follow up note. Per RN, pt is refusing all Lane packets. His BG is fairly good. Wound is deep. RD changed Lane order to Magic Cup ice cream BID. Hopeful pt will like this better than the Lane and will take it. Each cup has 9g protein in it. Will continue to follow weekly.
--- NOTE | 2020-04-07 15:48 | NUR ---
SW called pt to review team conference summary and plan for pt to have debridement tomorrow morning. SW explained a possibility that pt would be able to dc home on Sunday but would be depending on pt medical status and doctors' clearance that day. Pt expressed understanding. SW to continue to follow to assist with finalizing safe dc plan. RW at dc. Wound vac at dc. IV abx to change to oral abx at dc. [facility] to be sent final dc orders/med list upon dc day.
--- NOTE | 2020-04-07 16:57 | NUR ---
ALERT AND ORIENTED X4. UP WITH STAND BY ASSIST, GAIT BELT AND WALKER OR CANE. DENIED NEED FOR PAIN MEDICATION. DRESSINGS CHANGED OVER BUTTOCK WOUNDS BY WOUND NURSE. DR DE JESUS'S OFFICE WAS CALLED AND TALKED WITH [facility]. SHE SAID THE DR SAID APIXABAN DOES NOT NEED TO BE HELD FOR PROCEDURE IN AM. PATIENT CONTINUES ON IV ANTIBIODICS WITH NO ADVERSE REACTIONS OR SIDE EFFECTS. REMAINS ON CONTACT ISOLATION AT THIS TIME FOR MRSA. USES CALL LIGHT WHEN NEEDING ASSIST. FALL PRECAUTIONS IN PLACE WITH BED ALARM AND CHAIR ALARM.
[2020-04-07 20:25] VITALS: BP 126/51
--- NOTE | 2020-04-07 21:35 | OP ---
[address] [address] OPERATIVE REPORT Name: ANTOINETTE CHANDRA Room: [address] M.R.#: [id number] Admission: 03/14/20 Attend Phys: Carson Quiles MD Discharge: Date of : 48 Report #: [id number] THIS REPORT FOR: //name// cc: Noe Chatman MD, David L. MD ~ THIS REPORT FOR: //name// CC: Noe Quiles DATE OF SERVICE: 03/31/2020 PREOPERATIVE DIAGNOSIS: Sacral decubitus ulcer. POSTOPERATIVE DIAGNOSIS: Sacral decubitus ulcer. OPERATIVE PROCEDURE DONE: Excisional debridement of sacral decubitus ulcers. OPERATING SURGEON: Mj Myrick MD. INDICATIONS FOR THE PROCEDURE: The patient was a 69-year-old male who required a prolonged hospital stay secondary to the COVID-19 infection, developed decubitus ulcers in the sacral region, has been undergoing wound VAC changes. The patient was noted to have necrotic tissue. The wound was reviewed and was advised excisional debridement. PROCEDURE: Done at the bedside. The area was prepped and draped in a sterile fashion. The sacral wound measured approximately 6 x 8 cm and a second wound measuring approximately about 4 x 5 cm. There was necrotic skin and subcutaneous tissue that was noted on the larger wound on the medial aspect. An excisional debridement of the skin and subcutaneous tissue up to the fascia was done of both the wounds. The wound was then thoroughly irrigated and was then packed for hemostasis. A wound VAC was placed subsequently. The patient was stable at the end of the procedure. ESTIMATED BLOOD LOSS: Approximately 10 mL. CONDITION OF THE PATIENT: Unchanged. COMPLICATIONS: None. ANESTHESIA: General anesthesia. <ELECTRONICALLY SIGNED> By: Mj Myrick MD 04/07/20 2135 10 2039Mj Myrick MD /nt
--- NOTE | 2020-04-08 00:56 | NUR ---
ASSUMED CARE AT 1929. PATIENT RESTING IN BED ON SIDE. PATIENT STATES THE IMPORTANCE OF LYING ON HIS SIDE, STATING THAT HE WAS GLAD TO SEE PICTURES OF HIS WOUNDS BECAUSE HE DID NOT UNDERSTAND JUST HOW BAD THEY WERE BEFORE SEEING THE PICTURES. TAKES PILLS WHOLE WITH WATER. ABLE TO TURN SELF. VOIDED/BM PER TOILET, AFTER WHICH DRESSING WAS NOTED TO BE PARTIALLY SATURATED. DRESSINGS CHANGED AT ABOUT 2129 PER ORDERS. SL TO LT UPPER FOREARM DOES FLUSH ADEQUATELY. IVPB INFUSED PER PUMP. VANCO TROUGH WAS 20 AT 1929. UP WITH GAIT BELT, WALKER, SBA. ON CONTACT ISOLATION. HOURLY ROUNDS CONTINUE. BED ALARM ON. CALL LITE IN REACH AND USES APPROPRIATELY.
--- NOTE | 2020-04-08 06:06 | NUR ---
SLEPT MOST OF THE NIGHT. TURNS SELF. OBSERVED PATIENT COMPLETELY ON HIS SIDE ON ROUNDS. NO C/O PAIN. HOURLY ROUNDS CONTINUE. BED ALARM ON. CALL LITE IN REACH.
[2020-04-08 07:30] VITALS: BP 121/53
--- NOTE | 2020-04-08 11:01 | NUR ---
WOUND NURSE: MET WITH DR. DILL AT 0930 TODAY AND HE PERFORMED A BEDSIDE EXCISIONAL DEBRIDEMENT OF THE RIGHT SACROCOCCYGEAL AND BUTTOCK WOUND PERTAIING TO APPROX 10 TO 20% OF EACH OF THE WOUND BEDS. USING SCISSORS AND PICKUPS OBSERVED REMOVAL OF YELLOW NECROTIC TISSUE AND SUBCUTANEOUS TISSUE. A CONSENT WAS SIGNED PRIOR TO PROCEDURE AFTER PHYSISION EXPLAINED IT TO THE PATIENT. PER DR. DILL, THE WOUNDS WERE CLEANSED WITH WOUND CLEANSER AND GAUZE. THE RIGHT SACROCOCCYGEAL WOUND WAS PACKED LIGHTLY WITH DRY GAUZE UNDER ABD. THE RIGHT AND LEFT BUTTOCK WOUNDS WERE PACKED LIGHTLY WITH AQUACEL AG UNDER ABD, THEN SECURED WITH TAPE. SKIN PREP WAS APPLIED TO INTACT PERIWOUND TISSUE FOR PROTECTION. THE LEFT BUTTOCK WOUND WAS NOT DEBRIDED. POST DEBRIDEMENT PICTURES WERE OBTAINED. I CALLED [facility] AND SPOKE WITH JANES AND EXPLAINED THAT THE WOUND VAC WAS DELIVERED ON SUNDAY BUT NOT APPLIED DUE TO POSITIVE WOUND CULTURE; HOWEVER, PATIENT IS CURRENTLY BEING TREATED FOR THIS AND ANTICIPATE WOUND VAC CAN BE PLACED WHEN PATIENT COMES TO CLINIC ON SUNDAY NEXT WEEK. ALSO VERIFIED WITH [facility] THAT THEY ARE AWARE THAT [facility] WILL BE CARING FOR THIS PATIENT AT HOME AND PATIENT TO FOLLOW UP WITH DR. TRAORE IN [facility] NEXT SUNDAY, THEN DR. LOVE ON THE FOLLOWING SUNDAY. PATIENT AND HIS STAFF NURSE, DELILAH WERE MADE AWARE. PATIENT IS AWARE TO BRING VAC AND SUPPLIED WITH HIM TO WOUND CENTER NEXT WEEK.
[2020-04-08 15:30] VITALS: BP 130/63
--- NOTE | 2020-04-08 16:18 | NUR ---
PATIENT HAD BEDSIDE WOUND DEBRIDMENT THIS AM BY DR. DILL. DRESSINGS CHANGED TO COCCYX BY WOUND CARE. IV ABX INFUSED ORDERED. PATIENT UP WITH SBA; GAIT BELT AND CANE UTILIZED. NO COMPLAINTS OF PAIN. PROBABLE DISCHARGE TOMORROW.
--- NOTE | 2020-04-09 04:54 | NUR ---
ASSUMED PT CARE AT 1930. PT ALERT AND ORIENTED X4, POLITE AND COOERATIVE WITH CARES. PT RESTING ON LEFT SIDE. CAN TURN SELF IN BED. TAKES PILLS WHOLE WITH WATER. SL TO LEFT UPPER FOREARM WOULD NOT FLUSH, REMOVED AND NEW PIV STARTED IN RIGHT FOREARM BY WATERSHED ENGINEER. IV ABX INFUSED WITHOUT DIFFICULTY. DRESSINGS TO COCCYX C/D/I. PT ON CONTACT ISOLATION. CALL LIGHT IN REACH. USES CALL CALL LIGHT APPROPRIATELY. BED ALARM ON FOR SAFETY. PT ANTICIPATING DISCHARGE TODAY. HOURLY ROUNDING IN PROGRESS, WILL CONTINUE TO MONITOR.
[2020-04-09 08:03] VITALS: BP 108/54
[2020-04-09] MEDS ORDERED: LINEZOLID600 MG PO (12:51)
[2020-04-09] MEDS ORDERED: REMERON15 M2 PO (13:39)
[2020-04-09] MEDS ORDERED: ACIDOPHILUS LA1 EAC1 PO (13:39)
[2020-04-09] MEDS ORDERED: SENOKOT-S1 TA2 PO (13:44)
[2020-04-09] MEDS ORDERED: EFFIENT10 MG PO (13:45)
[2020-04-09] MEDS ORDERED: SERTRALINE HCL100 MG PO (13:48)
[2020-04-09 14:44] VITALS: BP 130/63
--- NOTE | 2020-04-09 14:53 | NUR ---
Pt to dc home with and HH services to follow. SW arranged HH services with pt/family preference for [facility] who confirmed they are able to send nurse for wound care 3 days in a row and pt to return to wound clinic on Sunday. Confirmed pt dc with RW from [facility] and wound vac from [facility]. Pt to provide pt ride home.
--- NOTE | 2020-04-09 15:30 | NUR ---
ASSESSMENT CHARTED. VSS THIS MORNING. DISCHARGED HOME AT 1515. SCRIPTS AND INSTRUCTIONS GONE OVER WITH PATIENT. PRESCRIPTIONS CALLED INTO [facility].
== END 2020-04-09 15:15 | disposition home health service (06) | DRG 40 ==
LOC: M.REH 08:45
PROVIDERS: Family Medicine; ADMIT Physical Medicine & Rehabilitation
DX: G72.81 Critical illness myopathy (principal); U07.1 COVID-19; I26.99 Other pulmonary embolism without acute cor pulmonale; E43 Unspecified severe protein-calorie malnutrition; A41.89 Other specified sepsis; J12.89 Other viral pneumonia; J96.01 Acute respiratory failure with hypoxia; N17.0 Acute kidney failure with tubular necrosis; R65.21 Severe sepsis with septic shock; K56.7 Ileus, unspecified; G62.81 Critical illness polyneuropathy; R53.81 Other malaise; I25.10 Atherosclerotic heart disease of native coronary artery without angina pectoris; E78.5 Hyperlipidemia, unspecified; I10 Essential (primary) hypertension; L89.159 Pressure ulcer of sacral region, unspecified stage; R73.03 Prediabetes; D75.9 Disease of blood and blood-forming organs, unspecified; B96.20 Unspecified Escherichia coli [E. coli] as the cause of diseases classified elsewhere; D69.6 Thrombocytopenia, unspecified; B95.62 Methicillin resistant Staphylococcus aureus infection as the cause of diseases classified elsewhere; Z95.5 Presence of coronary angioplasty implant and graft; Z88.2 Allergy status to sulfonamides; Z87.891 Personal history of nicotine dependence; I25.2 Old myocardial infarction; Z88.8 Allergy status to other drugs, medicaments and biological substances; Z88.0 Allergy status to penicillin

== ENCOUNTER → 2020-04-14 | Outpatient (CLI) | payer MEDICARE ==
[~2020-04-14] MED LIST changes: +ACIDOPHILUS LA1 EAC1 PO; +LINEZOLID600 MG PO; +REMERON15 M2 PO; +SENOKOT-S1 TA2 PO; +SERTRALINE HCL100 MG PO
== END ==
LOC: M.WC 04-09 10:00
DX: L89.314 Pressure ulcer of right buttock, stage 4 (principal); L89.154 Pressure ulcer of sacral region, stage 4; L89.322 Pressure ulcer of left buttock, stage 2; I25.10 Atherosclerotic heart disease of native coronary artery without angina pectoris; I10 Essential (primary) hypertension; Z79.01 Long term (current) use of anticoagulants; Z86.711 Personal history of pulmonary embolism

== ENCOUNTER → 2020-04-19 | Outpatient (CLI) | payer MEDICARE | LOC: M.WC 02:21 | DX: L89.314 Pressure ulcer of right buttock, stage 4 (principal); L89.154 Pressure ulcer of sacral region, stage 4; I25.10 Atherosclerotic heart disease of native coronary artery without angina pectoris; I10 Essential (primary) hypertension; Z86.711 Personal history of pulmonary embolism ==

== ENCOUNTER → 2020-04-26 | Outpatient (CLI) | payer MEDICARE | LOC: M.WC 03:33 | PROVIDERS: ATTEND Surgery | DX: L89.314 Pressure ulcer of right buttock, stage 4 (principal); L89.154 Pressure ulcer of sacral region, stage 4; L89.322 Pressure ulcer of left buttock, stage 2; I25.10 Atherosclerotic heart disease of native coronary artery without angina pectoris; I10 Essential (primary) hypertension; Z86.711 Personal history of pulmonary embolism ==

== ENCOUNTER → 2020-05-03 | Outpatient (CLI) | payer MEDICARE | LOC: M.WC 02:34 | PROVIDERS: ATTEND Surgery | DX: L89.314 Pressure ulcer of right buttock, stage 4 (principal); L89.154 Pressure ulcer of sacral region, stage 4; L89.322 Pressure ulcer of left buttock, stage 2; D69.6 Thrombocytopenia, unspecified; I25.10 Atherosclerotic heart disease of native coronary artery without angina pectoris; I10 Essential (primary) hypertension; Z86.711 Personal history of pulmonary embolism ==

== ENCOUNTER → 2020-05-10 | Outpatient (CLI) | payer MEDICARE | LOC: M.WC 04:19 | PROVIDERS: ATTEND Surgery | DX: L89.314 Pressure ulcer of right buttock, stage 4 (principal); L89.154 Pressure ulcer of sacral region, stage 4; L89.322 Pressure ulcer of left buttock, stage 2; I25.10 Atherosclerotic heart disease of native coronary artery without angina pectoris; I10 Essential (primary) hypertension; Z79.01 Long term (current) use of anticoagulants; Z86.711 Personal history of pulmonary embolism; Z86.19 Personal history of other infectious and parasitic diseases ==

== ENCOUNTER → 2020-05-17 | Outpatient (CLI) | payer MEDICARE | LOC: M.WC 06:33 | PROVIDERS: ATTEND Surgery | DX: L89.154 Pressure ulcer of sacral region, stage 4 (principal); L89.314 Pressure ulcer of right buttock, stage 4; L89.322 Pressure ulcer of left buttock, stage 2; D69.6 Thrombocytopenia, unspecified; I25.10 Atherosclerotic heart disease of native coronary artery without angina pectoris; I10 Essential (primary) hypertension; Z86.711 Personal history of pulmonary embolism ==

== ENCOUNTER → 2020-05-24 | Outpatient (CLI) | payer MEDICARE | LOC: M.WC 04:21 | PROVIDERS: ATTEND Surgery | DX: L89.314 Pressure ulcer of right buttock, stage 4 (principal); L89.322 Pressure ulcer of left buttock, stage 2; L89.154 Pressure ulcer of sacral region, stage 4; D69.6 Thrombocytopenia, unspecified; I25.10 Atherosclerotic heart disease of native coronary artery without angina pectoris; I10 Essential (primary) hypertension; Z86.711 Personal history of pulmonary embolism ==

== ENCOUNTER → 2020-05-31 | Outpatient (CLI) | payer MEDICARE | LOC: M.WC 03:08 | PROVIDERS: ATTEND Surgery | DX: L89.314 Pressure ulcer of right buttock, stage 4 (principal); L89.322 Pressure ulcer of left buttock, stage 2; L89.154 Pressure ulcer of sacral region, stage 4; D69.6 Thrombocytopenia, unspecified; I25.10 Atherosclerotic heart disease of native coronary artery without angina pectoris; I10 Essential (primary) hypertension; Z86.711 Personal history of pulmonary embolism ==

== ENCOUNTER → 2020-06-07 | Outpatient (CLI) | payer MEDICARE | LOC: M.WC 03:10 | DX: L89.314 Pressure ulcer of right buttock, stage 4 (principal); L89.322 Pressure ulcer of left buttock, stage 2; D69.6 Thrombocytopenia, unspecified; I25.10 Atherosclerotic heart disease of native coronary artery without angina pectoris; I10 Essential (primary) hypertension; Z86.711 Personal history of pulmonary embolism ==

== ENCOUNTER → 2020-06-14 | Outpatient (CLI) | payer MEDICARE | LOC: M.WC 10:00 | PROVIDERS: ATTEND Surgery | DX: L89.314 Pressure ulcer of right buttock, stage 4 (principal); L89.154 Pressure ulcer of sacral region, stage 4; D69.6 Thrombocytopenia, unspecified; I25.10 Atherosclerotic heart disease of native coronary artery without angina pectoris; I10 Essential (primary) hypertension; Z86.711 Personal history of pulmonary embolism ==

== ENCOUNTER → 2020-06-21 | Outpatient (CLI) | payer MEDICARE | LOC: M.WC 01:04 | PROVIDERS: ATTEND Surgery | DX: L89.154 Pressure ulcer of sacral region, stage 4 (principal); L89.314 Pressure ulcer of right buttock, stage 4; L89.322 Pressure ulcer of left buttock, stage 2; I25.10 Atherosclerotic heart disease of native coronary artery without angina pectoris; I10 Essential (primary) hypertension; Z86.711 Personal history of pulmonary embolism ==

== ENCOUNTER → 2020-06-28 | Outpatient (CLI) | payer MEDICARE | LOC: M.WC 02:54 | PROVIDERS: ATTEND Surgery | DX: L89.154 Pressure ulcer of sacral region, stage 4 (principal); L89.314 Pressure ulcer of right buttock, stage 4; L89.322 Pressure ulcer of left buttock, stage 2; I25.10 Atherosclerotic heart disease of native coronary artery without angina pectoris; D69.6 Thrombocytopenia, unspecified; I10 Essential (primary) hypertension; Z86.711 Personal history of pulmonary embolism ==

== ENCOUNTER → 2020-07-05 | Outpatient (CLI) | payer MEDICARE | LOC: M.WC 04:25 | PROVIDERS: ATTEND Surgery | DX: L89.314 Pressure ulcer of right buttock, stage 4 (principal); L89.322 Pressure ulcer of left buttock, stage 2; I25.10 Atherosclerotic heart disease of native coronary artery without angina pectoris; I10 Essential (primary) hypertension; D69.6 Thrombocytopenia, unspecified; Z86.711 Personal history of pulmonary embolism ==

== ENCOUNTER → 2020-07-12 | Outpatient (CLI) | payer MEDICARE | LOC: M.WC 07:37 | PROVIDERS: ATTEND Surgery | DX: L89.314 Pressure ulcer of right buttock, stage 4 (principal); L89.322 Pressure ulcer of left buttock, stage 2; D69.6 Thrombocytopenia, unspecified; I25.10 Atherosclerotic heart disease of native coronary artery without angina pectoris; I10 Essential (primary) hypertension; Z86.711 Personal history of pulmonary embolism ==

== ENCOUNTER → 2020-07-19 | Outpatient (CLI) | payer MEDICARE | LOC: M.WC 03:11 | PROVIDERS: ATTEND Family Medicine | DX: L89.314 Pressure ulcer of right buttock, stage 4 (principal); L89.322 Pressure ulcer of left buttock, stage 2; D69.6 Thrombocytopenia, unspecified; I25.10 Atherosclerotic heart disease of native coronary artery without angina pectoris; I10 Essential (primary) hypertension; Z86.711 Personal history of pulmonary embolism ==

== ENCOUNTER → 2020-08-02 | Outpatient (CLI) | payer MEDICARE | LOC: M.WC 04:04 | PROVIDERS: ATTEND Surgery | DX: L89.314 Pressure ulcer of right buttock, stage 4 (principal); L89.322 Pressure ulcer of left buttock, stage 2; D69.6 Thrombocytopenia, unspecified; I25.10 Atherosclerotic heart disease of native coronary artery without angina pectoris; I10 Essential (primary) hypertension; Z86.711 Personal history of pulmonary embolism ==

== ENCOUNTER → 2020-08-09 | Outpatient (CLI) | payer MEDICARE | LOC: M.WC 07:09 | PROVIDERS: ATTEND Surgery | DX: L89.154 Pressure ulcer of sacral region, stage 4 (principal); L89.314 Pressure ulcer of right buttock, stage 4; L89.322 Pressure ulcer of left buttock, stage 2; I25.10 Atherosclerotic heart disease of native coronary artery without angina pectoris; I10 Essential (primary) hypertension; Z86.711 Personal history of pulmonary embolism ==

== ENCOUNTER → 2020-08-16 | Outpatient (CLI) | payer MEDICARE | LOC: M.WC 02:28 | PROVIDERS: ATTEND Surgery | DX: L89.314 Pressure ulcer of right buttock, stage 4 (principal); L89.322 Pressure ulcer of left buttock, stage 2; D69.6 Thrombocytopenia, unspecified; I25.10 Atherosclerotic heart disease of native coronary artery without angina pectoris; I10 Essential (primary) hypertension; Z86.711 Personal history of pulmonary embolism ==

== ENCOUNTER → 2020-08-23 | Outpatient (CLI) | payer MEDICARE | LOC: M.WC 03:44 | PROVIDERS: ATTEND Surgery | DX: L89.154 Pressure ulcer of sacral region, stage 4 (principal); L89.314 Pressure ulcer of right buttock, stage 4; L89.322 Pressure ulcer of left buttock, stage 2; D69.6 Thrombocytopenia, unspecified; I25.10 Atherosclerotic heart disease of native coronary artery without angina pectoris; I10 Essential (primary) hypertension; Z86.711 Personal history of pulmonary embolism ==

== ENCOUNTER → 2020-08-24 | Outpatient (CLI) | payer MEDICARE ==
--- NOTE | 2020-08-25 15:19 | CARDNUC ---
[place] [address] CARDIAC NUCLEAR IMAGING REPORT Name: ANTOINETTE CHANDRA Room: [facility]#: [id number] Admission: 08/24/20 Attend Phys: Nelly Head Discharge: Date of : 48 Date of Service: 08/25/20 1519 Report #: [id number] THIS REPORT FOR: cc: Chema Brannon MD, Cong MD Park, Jin S. MD ~ APPROVED REPORT Imaging Protocol: Rest Tc-99m/Stress Tc-99m 1 day Study performed: 08/24/2020 14:34:39 Indication: Chest pain, LYN, CAD s/p PCI. Patient Location: Out-Patient Stress Tech: Naye Prajapati Stress Nurse: Concepcion Loera R.N. Ht: 5 ft 11 in Wt: 203 lbs BSA: 2.12 m2 BMI: 28.30 Medical History Medical History: Angina, Dyspnea, Acquired Hypothyroidism, Hypertriglyceridemia, s/p Covid/Intubation, HTN, CAD s/p stent Medications: Amlodipine, Atorvastatin, Carvedilol, Losartan, Effient, NTG, Sprionolactone, Fenofibrate, Lasix. Allergies: Meloxicam, Penicillin G, Sulfa ABX. Cardiac Risk Factors: Age, HTN, SOB, chest pain, Hypertriglyceridemia, family HX CHF. Previous Cardiac Procedures: PCI Pretest Chest Pain Characteristics: No chest pain Exercise History: Indeterminate Physical Disabilities: Weakness s/p Covid 19. Meds Held (24 hrs): Carvedilol, NTG. Resting Data Rest SPECT myocardial perfusion imaging was performed in supine position 30 minutes following the intravenous injection of 9.9 mCi of Tc-99m Sestamibi. Time of rest injection: 12:45 The images were gated to evaluate regional wall motion and calculate left ventricular ejection fraction. Administration Route: IV Administration Site: [place] [address] CARDIAC NUCLEAR IMAGING REPORT Name: ANTOINETTE CHANDRA Room: [facility]#: [id number] Admission: 08/24/20 Attend Phys: Nelly Head Discharge: Date of : 48 Date of Service: 08/25/20 1519 Report #: [id number] Exercise Stress At peak stress, the patient was injected intravenously with 32.3mCi of Tc-99m Sestamibi. Time of stress injection: 14:50 Administration Route: IV Administration Site: Left Hand Heart Rate at time of stress injection: 136 bpm. Patient continued to exercise for 1 minute(s). Gated Stress SPECT was performed 10 minutes after stress injection. The images were gated to evaluate regional wall motion and calculate left ventricular ejection fraction. Prone imaging was performed. Stress Test Details Stress Test: Exercise stress testing was performed using a Agusto protocol. HR Max Heart Rate (APMHR): 149 bpm Resting HR: 66 bpm Target HR (85% APMHR): 126 bpm Max HR Achieved: 136 bpm % of APMHR: 91 Recovery HR: 78 bpm BP Resting BP: 150/94 mmHg Max BP: 265/68 mmHg Recovery BP: 178/78 mmHg ECG Resting ECG: Sinus Rhythm Stress ECG: Sinus Rhythm ST Change: Non-ischemic Clinical Reason for Termination: Completed protocol, Maximal effort, Target HR achieved. Stress Symptoms: Dyspnea, Chest tightness 1-2, Leg fatigue. Exercise duration: 9 min 30 sec Exercise capacity: 10.16 METs Overall Exercise Capacity for Age: Superior Nurse Comments A 70 year old male outpatient s/p PCI, dyspnea, chest pain, s/p Covid-19 with intubation, presented for a Agusto protocol Nuclear Stress Test. Treadmill tolerated through Stage 3[place] [address] CARDIAC NUCLEAR IMAGING REPORT Name: ANTOINETTE CHANDRA Room: [facility]#: [id number] Admission: 08/24/20 Attend Phys: Nelly Head Discharge: Date of : 48 Date of Service: 08/25/20 1519 Report #: [id number] Recovery unremarkable. Patient was stable and stated he felt good when escorted to Nuclear Medicine for imaging. Study Quality Study: Good Study Data Post stress, the left ventricular ejection was 55%.. Perfusion Normal left ventricular perfusion. Normal perfusion on both the stress and rest images. Wall Motion Normal left ventricular wall motion. Nuclear Conclusion ECG Findings: negative for ischemia Clinical Findings: negative for ischemia Nuclear Findings: negative for ischemia Exercise Capacity: normal Left Ventricular Function: normal Risk Study: low This study is of low probability for inducible ischemia or prior infarct. Normal global and segmental LV systolic function. <ELECTRONICALLY SIGNED> By: Tyshawn Myrick MD 08/25/20 1519 1519 Tyshawn Myrick MD /INF
== END ==
LOC: M.NUC 06-09 08:41 → M.CRD 09:00 → M.NUC 09:00
PROVIDERS: ATTEND Internal Medicine
DX: I25.10 Atherosclerotic heart disease of native coronary artery without angina pectoris (principal); I10 Essential (primary) hypertension; Z95.5 Presence of coronary angioplasty implant and graft

== ENCOUNTER → 2020-08-30 | Outpatient (CLI) | payer MEDICARE | LOC: M.WC 03:51 | PROVIDERS: ATTEND Surgery | DX: L89.154 Pressure ulcer of sacral region, stage 4 (principal); L89.314 Pressure ulcer of right buttock, stage 4; L89.322 Pressure ulcer of left buttock, stage 2; D69.6 Thrombocytopenia, unspecified; I25.10 Atherosclerotic heart disease of native coronary artery without angina pectoris; I10 Essential (primary) hypertension; Z86.711 Personal history of pulmonary embolism ==

== ENCOUNTER → 2020-09-02 | Outpatient (CLI) | payer MEDICARE | LOC: M.RAD 09:31 | PROVIDERS: ATTEND Internal Medicine | DX: M25.811 Other specified joint disorders, right shoulder (principal); G89.29 Other chronic pain ==

== ENCOUNTER → 2020-09-06 | Outpatient (CLI) | payer MEDICARE | LOC: M.WC 09:49 | PROVIDERS: ATTEND Surgery | DX: L89.154 Pressure ulcer of sacral region, stage 4 (principal); L89.314 Pressure ulcer of right buttock, stage 4; L89.322 Pressure ulcer of left buttock, stage 2; D69.6 Thrombocytopenia, unspecified; I25.10 Atherosclerotic heart disease of native coronary artery without angina pectoris; I10 Essential (primary) hypertension; Z86.711 Personal history of pulmonary embolism ==

== ENCOUNTER → 2020-09-13 | Outpatient (CLI) | payer MEDICARE | LOC: M.WC 05:35 | PROVIDERS: ATTEND Surgery | DX: L89.154 Pressure ulcer of sacral region, stage 4 (principal); L89.314 Pressure ulcer of right buttock, stage 4; L89.322 Pressure ulcer of left buttock, stage 2; D69.6 Thrombocytopenia, unspecified; I25.10 Atherosclerotic heart disease of native coronary artery without angina pectoris; I10 Essential (primary) hypertension; Z86.711 Personal history of pulmonary embolism ==

== ENCOUNTER → 2020-09-20 | Outpatient (CLI) | payer MEDICARE | LOC: M.WC 09:01 | PROVIDERS: ATTEND Surgery | DX: L89.154 Pressure ulcer of sacral region, stage 4 (principal); L89.314 Pressure ulcer of right buttock, stage 4; L89.322 Pressure ulcer of left buttock, stage 2; D69.6 Thrombocytopenia, unspecified; I25.10 Atherosclerotic heart disease of native coronary artery without angina pectoris; I10 Essential (primary) hypertension; Z86.711 Personal history of pulmonary embolism ==

== ENCOUNTER → 2020-09-27 | Outpatient (CLI) | payer MEDICARE | LOC: M.WC 09:26 | PROVIDERS: ATTEND Surgery | DX: L89.154 Pressure ulcer of sacral region, stage 4 (principal); L89.314 Pressure ulcer of right buttock, stage 4; L89.322 Pressure ulcer of left buttock, stage 2; D69.6 Thrombocytopenia, unspecified; I25.10 Atherosclerotic heart disease of native coronary artery without angina pectoris; I10 Essential (primary) hypertension; Z86.711 Personal history of pulmonary embolism ==

== ENCOUNTER → 2020-10-04 | Outpatient (CLI) | payer MEDICARE | LOC: M.WC 09:51 | PROVIDERS: ATTEND Surgery | DX: L89.154 Pressure ulcer of sacral region, stage 4 (principal); L89.314 Pressure ulcer of right buttock, stage 4; L89.322 Pressure ulcer of left buttock, stage 2; D69.6 Thrombocytopenia, unspecified; I25.10 Atherosclerotic heart disease of native coronary artery without angina pectoris; I10 Essential (primary) hypertension; Z86.711 Personal history of pulmonary embolism ==

== ENCOUNTER → 2020-10-11 | Outpatient (CLI) | payer MEDICARE | LOC: M.WC 09:36 | PROVIDERS: ATTEND Surgery | DX: L89.154 Pressure ulcer of sacral region, stage 4 (principal); L89.314 Pressure ulcer of right buttock, stage 4; L89.322 Pressure ulcer of left buttock, stage 2; I25.10 Atherosclerotic heart disease of native coronary artery without angina pectoris; I10 Essential (primary) hypertension; Z86.711 Personal history of pulmonary embolism ==

== ENCOUNTER → 2020-10-18 | Outpatient (CLI) | payer MEDICARE | LOC: M.WC 09:49 | PROVIDERS: ATTEND Surgery | DX: L89.154 Pressure ulcer of sacral region, stage 4 (principal); L89.314 Pressure ulcer of right buttock, stage 4; L89.322 Pressure ulcer of left buttock, stage 2; L84 Corns and callosities; D69.6 Thrombocytopenia, unspecified; I25.10 Atherosclerotic heart disease of native coronary artery without angina pectoris; I10 Essential (primary) hypertension; Z86.711 Personal history of pulmonary embolism ==

== ENCOUNTER → 2020-10-25 | Outpatient (CLI) | payer MEDICARE | LOC: M.WC 09:47 | PROVIDERS: ATTEND Surgery | DX: L89.154 Pressure ulcer of sacral region, stage 4 (principal); L89.314 Pressure ulcer of right buttock, stage 4; L89.322 Pressure ulcer of left buttock, stage 2; D69.6 Thrombocytopenia, unspecified; I25.10 Atherosclerotic heart disease of native coronary artery without angina pectoris; I10 Essential (primary) hypertension; Z86.711 Personal history of pulmonary embolism ==

== ENCOUNTER → 2020-11-01 | Outpatient (CLI) | payer MEDICARE | LOC: M.WC 09:40 | PROVIDERS: ATTEND Surgery | DX: L89.154 Pressure ulcer of sacral region, stage 4 (principal); L89.314 Pressure ulcer of right buttock, stage 4; L89.322 Pressure ulcer of left buttock, stage 2; D69.6 Thrombocytopenia, unspecified; I25.10 Atherosclerotic heart disease of native coronary artery without angina pectoris; I10 Essential (primary) hypertension; Z86.711 Personal history of pulmonary embolism ==

== ENCOUNTER → 2020-11-08 | Outpatient (CLI) | payer MEDICARE | LOC: M.WC 09:47 | PROVIDERS: ATTEND Surgery | DX: L89.154 Pressure ulcer of sacral region, stage 4 (principal); L89.314 Pressure ulcer of right buttock, stage 4; L89.322 Pressure ulcer of left buttock, stage 2; I25.10 Atherosclerotic heart disease of native coronary artery without angina pectoris; I10 Essential (primary) hypertension; Z86.711 Personal history of pulmonary embolism ==

== ENCOUNTER → 2020-11-15 | Outpatient (CLI) | payer MEDICARE | LOC: M.WC 09:39 | PROVIDERS: ATTEND Surgery | DX: L89.314 Pressure ulcer of right buttock, stage 4 (principal); I25.10 Atherosclerotic heart disease of native coronary artery without angina pectoris; I10 Essential (primary) hypertension; L89.322 Pressure ulcer of left buttock, stage 2; Z86.711 Personal history of pulmonary embolism ==

== ENCOUNTER → 2020-11-22 | Outpatient (CLI) | payer MEDICARE | LOC: M.WC 10:00 | PROVIDERS: ATTEND Surgery | DX: L89.154 Pressure ulcer of sacral region, stage 4 (principal); L89.314 Pressure ulcer of right buttock, stage 4; L89.322 Pressure ulcer of left buttock, stage 2; D69.6 Thrombocytopenia, unspecified; I25.10 Atherosclerotic heart disease of native coronary artery without angina pectoris; I10 Essential (primary) hypertension; Z86.711 Personal history of pulmonary embolism ==

== ENCOUNTER → 2020-11-29 | Outpatient (CLI) | payer MEDICARE | LOC: M.WC 09:47 | PROVIDERS: ATTEND Surgery | DX: L89.314 Pressure ulcer of right buttock, stage 4 (principal); L89.322 Pressure ulcer of left buttock, stage 2; I25.10 Atherosclerotic heart disease of native coronary artery without angina pectoris; I10 Essential (primary) hypertension; Z86.711 Personal history of pulmonary embolism ==

== ENCOUNTER → 2021-03-14 | Outpatient (CLI) | payer MEDICARE ==
--- NOTE | 2021-03-14 12:14 | 2DMMODE ---
[place] [address] 2 D/M-MODE ECHOCARDIOGRAM Name: ANTOINETTE CHANDRA Room: [facility]#: [id number] Admission: 03/14/21 Attend Phys: Nelly Head Discharge: Date of : 48 Date of Service: 03/14/21 1214 Report #: [id number] THIS REPORT FOR: cc: Kana Brannon MD, Meng MD Blick, David R. MD [facility] ~ APPROVED REPORT Study performed: 03/14/2021 08:36:16 EXAM: Comprehensive 2D, Doppler, and color-flow Echocardiogram Patient Location: Out-Patient BSA: 2.13 HR: 64 bpm BP: 120/55 mmHg Other Information Study Quality: Good Indications CAD Hypertension/HDD 2D Dimensions IVSd: 11.27 (7-11mm) LVOT Diam: 20.80 (18-24mm) LVDd: 48.65 mm PWd: 9.14 (7-11mm) Ascending Ao: 29.29 (22-36mm) LVDs: 27.13 (25-40mm) Aortic Root: 29.81 mm Volumes Left Atrial Volume (Systole) LA ESV Index: 17.40 mL/m2 Aortic Valve AoV Peak Juaquin.: 1.26 m/s AO Peak Gr.: 6.34 mmHg LVOT Max P.90 mmHg AO Mean Gr.: 3.30 mmHg LVOT Mean P.34 mmHg LVOT Max V: 1.41 m/s AO V2 VTI: 29.50 cm LVOT Mean V: 0.83 m/s FLOYD (VTI): 3.56 cm2 LVOT V1 VTI: 30.94 [place] [address] 2 D/M-MODE ECHOCARDIOGRAM Name: ANTOINETTE CHANDRA Room: [facility]#: [id number] Admission: 03/14/21 Attend Phys: Nelly Head Discharge: Date of : 48 Date of Service: 03/14/21 1214 Report #: [id number] E/A Ratio: 1.55 MV Decel. Time: 246.56 ms MV E Max Juaquin.: 0.83 m/s MV PHT: 71.50 ms MVA (PHT): 3.08 cm2 TDI E/Lateral E': 7.55 E/Medial E': 9.22 Medial E' Juaquin.: 0.09 m/s Lateral E' Juaquin.: 0.11 m/s Pulmonary Valve PV Peak Juaquin.: 0.98 m/s PV Peak Gr.: 3.87 mmHg Left Ventricle The left ventricle is normal size. There is normal LV segmental wall motion. There is normal left ventricular wall thickness. Left ventricular systolic function is normal. The left ventricular ejection fraction is within the normal range. LVEF is 55-60%. The left ventricular diastolic function is normal. Right Ventricle The right ventricle is normal size. The right ventricular systolic function is normal. Atria The left atrium size is normal. The right atrium size is normal. Aortic Valve The aortic valve is normal in structure. No aortic regurgitation is present. There is no aortic valvular stenosis. Mitral Valve The mitral valve is normal in structure. Mild mitral regurgitation. No evidence of mitral valve stenosis. Tricuspid Valve The tricuspid valve is normal in structure. There is no tricuspid valve regurgitation noted. Pulmonic Valve Pulmonic valve is not well visualized. There is no pulmonic valvular regurgitation[place] [address] 2 D/M-MODE ECHOCARDIOGRAM Name: TONY CHANDRALEONARD Roberson Room: [facility] Farzana#: [id number] Admission: 03/14/21 Attend Phys: Nelly Head Discharge: Date of : 48 Date of Service: 03/14/21 1214 Report #: [id number] The aortic root is normal in size. IVC is normal in size and collapses >50% with inspiration. Pericardium There is no pericardial effusion. <Conclusion> LVEF is 55-60%. Mild mitral regurgitation. <ELECTRONICALLY SIGNED> By: Noe Schwab MD, FACC 03/14/21 1214 13 Noe Schwab MD, [facility] /INF
== END ==
LOC: M.CRD 08:33
PROVIDERS: ATTEND Internal Medicine
DX: I34.0 Nonrheumatic mitral (valve) insufficiency (principal); I25.10 Atherosclerotic heart disease of native coronary artery without angina pectoris; I10 Essential (primary) hypertension

== ENCOUNTER → 2021-09-07 | Outpatient (CLI) | payer MEDICARE ==
[2021-09-07 10:28] LABS: HEMATOCRIT 36.9 % (42.0-52.0); HEMOGLOBIN 12.5 gm/dL (14.0-18.0); MCH 31.1 pg (26.0-34.0); MCHC 33.8 g/dL (28.0-37.0); MPV 8.3 fl. (7.2-11.1); RBC 4.01 mil/uL (4.50-6.00); RDW-CV 12.8 % (10.5-14.5); WBC 5.4 thou/uL (4.0-11.0)
[2021-09-07 10:31] LABS: ALBUMIN 4.1 g/dL (3.4-5.0); CALCIUM 9.5 mg/dL (8.5-10.1); CREATININE 1.7 mg/dL (0.6-1.3); POTASSIUM 4.4 mmol/L (3.5-5.1); TOTAL BILIRUBIN 0.6 mg/dL (<0.1-1.0); TOTAL PROTEIN 7.6 g/dL (6.4-8.2)
[2021-09-07 11:07] LABS: % SATURATION 27 % (20-39); IRON 112 ug/dL (50-175)
== END ==
LOC: M.LAB 09:52
PROVIDERS: ATTEND Nurse Practitioner Family
DX: D50.9 Iron deficiency anemia, unspecified (principal)

== ENCOUNTER → 2021-09-09 | Outpatient (CLI) | payer MEDICARE ==
--- NOTE | 2021-09-09 16:44 | CARDNUC ---
[place] [address] CARDIAC NUCLEAR IMAGING REPORT Name: ANTOINETTE CHANDRA Karol Room: [facility]#: [id number] Admission: 09/09/21 Attend Phys: Nelly Head Discharge: Date of : 48 Date of Service: 09/09/21 1644 Report #: [id number] THIS REPORT FOR: cc: Kana Brannon MD, Meng MD Liston, Michael J. MD [facility] ~ APPROVED REPORT Imaging Protocol: Rest Tc-99m/Stress Tc-99m 1 day Study performed: 09/09/2021 07:30:00 Indication: CAD s/p PCI Patient Location: In-Patient Stress Tech: Jenifer John Stress Nurse: Svitlana Gordillo RN NM Tech:LILLY Schaffer Ht: 5 ft 11 in Wt: 195 lbs BSA: 2.09 m2 HR: 67 bpm BP: 196/80 mmHg BMI: 27.19 Rhythm: NSR Medical History Medical History: CAD s/p stent Medications: Carvedilol, Fenofibrate, Amlodipine, Atorvastatin, Lasix, Hydralazine, Losartan, Prasugrel, NTG Allergies: Mobic, PCN, Sulfa Cardiac Risk Factors: Age, HTN, Hyperlipidemia, FHX of CAD Previous Cardiac Procedures: PCI Pretest Chest Pain Characteristics: None Exercise History: Physically active Physical Disabilities: None Meds Held (24 hrs): Carvedilol Resting Data Rest SPECT myocardial perfusion imaging was performed in supine position 30 minutes following the intravenous injection of 10.8 mCi of Tc-99m Sestamibi. Time of rest injection: 744 Date: 09/09/2021 The images were gated to evaluate regional wall motion and calculate left ventricular ejection fraction. Administration Route: IV Administration Site: [place] [address] CARDIAC NUCLEAR IMAGING REPORT Name: ANTOINETTE CHANDRA Room: [facility] ESEQUIEL Yanes#: [id number] Admission: 09/09/21 Attend Phys: Nelly Head Discharge: Date of : 48 Date of Service: 09/09/21 1644 Report #: [id number] Pharmacologic Stress Pharmacologic stress test was performed by injecting Regadenoson 0.4 mg IV push over 10-15 seconds immediately followed by the intravenous injection of 34.5 mCi of Tc-99m Sestamibi. Time of stress injection: 854 Date: 09/09/2021 Administration Route: IV Administration Site: Right Gated Stress SPECT was performed 40 minutes after stress injection. The images were gated to evaluate regional wall motion and calculate left ventricular ejection fraction. Prone imaging was performed. Stress Test Details Stress Test: Exercise stress converted to pharmacologic stress due to failure to obtain a diagnostic stress test. Reason for pharmacologic stress test: HTN. HR Max Heart Rate (APMHR): 148 bpm Resting HR: 67 bpm Target HR (85% APMHR): 125 bpm Max HR Achieved: 93 bpm % of APMHR: 62 Recovery HR: 81 bpm BP Resting BP: 196/80 mmHg Max BP: 228/77 mmHg Recovery BP: 196/58 mmHg ECG Resting ECG: Sinus Rhythm Stress ECG: Sinus Tachycardia ST Change: None Arrhythmia: None Recovery ECG: Sinus Rhythm Recovery ST Change: None Recovery Arrhythmia: None Clinical Reason for Termination: Completed protocol Stress Symptoms: None The patient exhibited limited exercise tolerance. Test switched to a Lexiscan perfusion study. Nurse Comments Initial intent to perform treadmill stress test, changed to Lexiscan due to SBP consistently >180 (BP taken several times [place] [address] CARDIAC NUCLEAR IMAGING REPORT Name: ANTOINETTE CHANDRA Room: [facility]#: [id number] Admission: 09/09/21 Attend Phys: Nelly Head Discharge: Date of : 48 Date of Service: 09/09/21 1644 Report #: [id number] minutes of sitting). Pt experienced no subjective s/s post-Lexiscan administration. Stress ECG Conclusion Baseline twelve-lead EKG shows sinus rhythm without significant ST segment or T wave abnormality. EKGs obtained during stress show sinus rhythm and sinus tachycardia with no significant ST segment or T wave changes when compared to rest. There were no stress-induced arrhythmias. Study Quality Study: Good Artifact: No artifact Study Data At rest, the left ventricular ejection fraction was 66%.. Post stress, the left ventricular ejection was 77%.. TID = 0.99. Perfusion Perfusion images obtained at rest and post stress show uniform uptake of the radioisotope throughout the myocardium. There were no defects to suggest infarct or ischemia. Wall Motion Normal left ventricular wall motion. Nuclear Conclusion ECG Findings: negative for ischemia Clinical Findings: negative for ischemia Nuclear Findings: negative for ischemia Left Ventricular Function: normal Risk Study: low Perfusion images of obtained at rest and post stress show no defect to suggest infarct or ischemia. Left ventricular systolic function appears normal on gated studies. This is a low risk study. <Conclusion> Baseline twelve-lead EKG shows sinus rhythm without significant ST segment or T wave abnormality. EKGs obtained during stress show sinus rhythm and sinus tachycardia with no significant [place] [address] CARDIAC NUCLEAR IMAGING REPORT Name: ANTOINETTE CHANDRA Room: [facility]#: [id number] Admission: 09/09/21 Attend Phys: Nelly Head Discharge: Date of : 48 Date of Service: 09/09/21 1644 Report #: [id number] T wave changes when compared to rest. There were no stress-induced arrhythmias. <ELECTRONICALLY SIGNED> By: Sukhwinder Robertson MD, FACC 09/09/211643 43 43 Sukhwinder Robertson MD, FACC /INF
== END ==
LOC: M.NUC 07:24
PROVIDERS: ATTEND Internal Medicine
DX: I25.10 Atherosclerotic heart disease of native coronary artery without angina pectoris (principal); Z95.5 Presence of coronary angioplasty implant and graft